=== PATIENT | female | born 1970 | race Caucasian/White ===

== ENCOUNTER 2017-09-16 11:38 | Emergency (ER) | payer OTHER, SELFPAY ==
[2017-09-16 11:40] VITALS: BP 131/71; PULSE 77; RESP 16; TEMP 36.7; O2SAT 98; BMI 40.3
--- NOTE | 2017-09-16 11:54 | XR_ITS ---
XR knee LT 3V Ordering Physician: Rm Galicia MD Patient Age: 47 years: Female HISTORY: ITS.REASON: fall Patient fell at work with on right with at head water underneath it. Pain all around the left knee TECHNIQUE: 3 views left knee COMPARISON :None available FINDINGS Left knee is intact with no fracture. Upper normal joint fluid. Mild degenerative changes at the left knee was borderline narrowing of the medial compartment and slight sharpening, early marginal osteophytes seen about the medial and lateral compartment. IMPRESSION: No acute fracture evident. Suggestion of trace Scant degenerative changes with borderline narrowing medial compartment. No prominent joint effusion but there is Upper normal to scant increased joint fluid suprapatella bursa.
--- NOTE | 2017-09-16 11:54 | CT_ITS ---
CT lumbar spine wo con Patient Age: 47 years: Female HISTORY: ITS.REASON: fall back pain trauma Fell on right with water under. Pain midline lower back TECHNIQUE: Helical CT scanning performed the lumbar spine with sagittal and coronal reconstructions on CT workstation. In addition of oblique axial images through the lower disc spaces performed on CT workstation a 76 CPT COMPARISON :Lumbar spine series 11/28/2016 FINDINGS images began at T11/12 and continuing inferiorly through the majority of sacrum.. Transverse processes intact. Pedicles intact. No acute fracture nor subluxation The lumbar vertebral bodies are intact with no compression fractures. . . L5 is a transitional vertebra with sacralization of L5 most extensive on right & with pseudoarthrosis formation with sacrum on right. Marked degenerative disc space narrowing at L5/S1 reflect the transitional character. No disc protrusion. Mild posterior element hypertrophy L5/S1 L4/5. Mild facet hypertrophy arthropathy. Disc intact with only mild narrowing at posterior L4/5 disc space- similar to previous plain films from 2016. L3/4. At disc well-maintained unremarkable. L2/3. Disc intact with only borderline narrowing height. A 1/2 disc intact T12/L1 disc intact T11/12 disc unremarkable. kidneys are included with no acute findings. I would note a small 2 mm nonobstructive calculus at the lower pole calyx right kidney.. Sacrum appears intact on these views SI joints unremarkable. Cholecystectomy noted. IMPRESSION: ------ 1 Lumbar spine intact with no acute fracture or findings. 2 Prominent sacralization of L5 to the right reflect this transitional in nature. . Mild disc space narrowing posteriorly & to the right at L4/5- unchanged since November 2016 plain films.. .Mild degenerative facet changes most evident at lower L-spine 3. small nonobstructive calculus lower pole calyx right kidney. 2 mm cyst incidentally noted
--- NOTE | 2017-09-16 12:13 | XR_ITS ---
XR pelvis 1-2V Ordering Physician: Rm Galicia MD Patient Age: 47 years: Female HISTORY: ITS.REASON: FALL TECHNIQUE: Osseous pelvis AP view. August 2016 AP pelvis comparison . FINDINGS The osseous pelvis is intact with no fracture. Bones well mineralized. Sacralization L5 to the right noted. AP view of hips unremarkable. No significant change since previous study. Pubis sacrum and SI joints unremarkable on this survey. Image IMPRESSION: Osseous pelvis intact.. No fracture nor acute findings.. No significant change since 2017
[2017-09-16 14:10] VITALS: BP 118/56; PULSE 66; O2SAT 98
--- NOTE | 2017-09-16 14:27 | HMH.EDFALL ---
ED Disposition Clinical Impression: Lumbar back sprain Qualifiers: Encounter type: initial encounter Qualified Code(s): S33.5XXA - Sprain of ligaments of lumbar spine, initial encounter Knee sprain Qualifiers: Encounter type: initial encounter Involved ligament of knee: unspecified ligament Laterality: left Qualified Code(s): S83.92XA - Sprain of unspecified site of left knee, initial encounter Disposition: Home, Self-Care Condition on Discharge: Good Instructions: DI for Low Back Pain Additional Instructions: call pcp and folllow up at this time Prescriptions: predniSONE [Prednisone 20mg Tab] 20 mg PO DAILY #10 tab Referrals: Umang Gamino MD [Primary Care Provider] - - Critical Care Critical Care Time: No Attestation: On 09/16/17, the high probability of a clinically significant, sudden or life threatening deterioration of the following system(s) required my full and direct attention, intervention and personal management. The time I documented below is in addition to time spent performing reported procedures but includes the following listed in this critical care notation. Medical Decision Making - Medical Records Medical records reviewed: Yes: I reviewed the patient's medical records. Vital Signs: 09/16/17 11:40 09/16/17 14:10 Temperature 98.1 F Temperature Source Oral Pulse Rate [Right Brachial] 77 66 Respiratory Rate 16 Blood Pressure [Right Arm] 131/71 118/56 Blood Pressure Mean [Right Arm] 91 76 Blood Pressure Source [Right Arm] Automatic Cuff Automatic Cuff Blood Pressure Position [Right Arm] Sitting Sitting 02 Sat by Pulse Oximetry 98 98 Oxygen Delivery Method Room Air - Lab Data Lab results reviewed: Yes: I reviewed the patient's lab results. Orders (Tests/Meds): ED MEDICATIONS Discontinued Medications Generic Name Dose Route Start Last Admin Trade Name Freq PRN Reason Stop Dose Admin Acetaminophen 650 mg 09/16/17 13:38 Acetaminophen 325mg Tab PO 09/16/17 13:39 ONCE ONE Ibuprofen 600 mg 09/16/17 13:55 09/16/17 13:57 Motrin 600mg Tablet PO 09/16/17 13:56 600 mg ONCE ONE Administration - Radiology Data #1 Image(s): Pelvis, Knee Image Reviewed: Yes I reviewed the patient's radiology image Preliminary Findings: No Fracture Seen - CT Data CT Scan: L-Spine Time Received: 14:[address] Reviewed: Yes: I have viewed the radiologist's interpretation Preliminary Findings: No Fracture Seen - Hardeep Inquiry Pt receiving controlled substance: No Fall HPI - General Chief Complaint: Fall Stated Complaint: WC 09/16/17 left knee/back pain Time Seen by Provider: 09/16/17 14:27 Mode of Arrival: Wheelchair Source of Information: Patient, Medical Record Limitations: No Limitations Description of Symptoms (Recalled from ER Triage Doc. 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 Pt c/o pain in her left knee and lower back. - History of Present Illness HPI Narrative: workman comp injury today as she slipped on rug - has back and knee injury MD complaint: fall Onset (ago): hour(s) Fall from: standing Fall witnessed: yes, by [facility] staff Place fall occurred: work Loss of consciousness: none Prolonged down time: no Symptoms prior to fall: none Context: tripped/slipped Location of injury: back Location of injury - extremities: Left: knee Severity: moderate - Related Data Previous Rx's Medication Instructions Recorded predniSONE [Prednisone 20mg 20 mg PO DAILY #10 tab 09/16/17 Tab] Allergies Allergy/AdvReac Type Severity Reaction Status Date / Time naproxen [NAPROXEN] Allergy Mild HEART Verified 09/16/17 11:53 BEATING TOO FAST [facility] History I have reviewed the patient's past medical history: Yes Medical History: Reports:: Cancer (cervical) Denies:: Diabetes Mellitus Type 1, Diabetes Mellitus Type 2, MRSA Laterality Cases: Left: Arthroscopy Shoulder Amputation:
--- NOTE | 2017-09-16 14:38 | ED_ITS ---
ED Disposition Clinical Impression: Lumbar back sprain Qualifiers: Encounter type: initial encounter Qualified Code(s): S33.5XXA - Sprain of ligaments of lumbar spine, initial encounter Knee sprain Qualifiers: Encounter type: initial encounter Involved ligament of knee: unspecified ligament Laterality: left Qualified Code(s): S83.92XA - Sprain of unspecified site of left knee, initial encounter Disposition: Home, Self-Care Condition on Discharge: Good Instructions: DI for Low Back Pain Additional Instructions: call pcp and folllow up at this time Prescriptions: predniSONE [Prednisone 20mg Tab] 20 mg PO DAILY #10 tab Referrals: Umang Gamino MD [Primary Care Provider] - - Critical Care Critical Care Time: No Attestation: On 09/16/17, the high probability of a clinically significant, sudden or life threatening deterioration of the following system(s) required my full and direct attention, intervention and personal management. The time I documented below is in addition to time spent performing reported procedures but includes the following listed in this critical care notation. Medical Decision Making - Medical Records Medical records reviewed: Yes: I reviewed the patient's medical records. Vital Signs: 09/16/17 11:40 09/16/17 14:10 Temperature 98.1 F Temperature Source Oral Pulse Rate [Right Brachial] 77 66 Respiratory Rate 16 Blood Pressure [Right Arm] 131/71 118/56 Blood Pressure Mean [Right Arm] 91 76 Blood Pressure Source [Right Arm] Automatic Cuff Automatic Cuff Blood Pressure Position [Right Arm] Sitting Sitting 02 Sat by Pulse Oximetry 98 98 Oxygen Delivery Method Room Air - Lab Data Lab results reviewed: Yes: I reviewed the patient's lab results. Orders (Tests/Meds): ED MEDICATIONS Discontinued Medications Generic Name Dose Route Start Last Admin Trade Name Freq PRN Reason Stop Dose Admin Acetaminophen 650 mg 09/16/17 13:38 Acetaminophen 325mg Tab PO 09/16/17 13:39 ONCE ONE Ibuprofen 600 mg 09/16/17 13:55 09/16/17 13:57 Motrin 600mg Tablet PO 09/16/17 13:56 600 mg ONCE ONE Administration - Radiology Data #1 Image(s): Pelvis, Knee Image Reviewed: Yes I reviewed the patient's radiology image Preliminary Findings: No Fracture Seen - CT Data CT Scan: L-Spine Time Received: 14:[address] Reviewed: Yes: I have viewed the radiologist's interpretation Preliminary Findings: No Fracture Seen - Hardeep Inquiry Pt receiving controlled substance: No Fall HPI - General Chief Complaint: Fall Stated Complaint: WC 09/16/17 left knee/back pain Time Seen by Provider: 09/16/17 14:27 Mode of Arrival: Wheelchair Source of Information: Patient, Medical Record Limitations: No Limitations Description of Symptoms (Recalled from ER Triage Doc. 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 Pt c/o pain in her left knee and lower back. - History of Present Illness HPI Narrative: workman comp injury today as she slipped on rug - has back and knee injury MD complaint: fall Onset (ago): hour(s) Fall from: standing Fall witnessed: yes, by [facility] staff Place fall occurred: work Loss of consciousness: none Prolonged down time: no Symptoms prior to fall: none Context: tripped/slipped Loca
[2017-09-16 15:03] VITALS: BP 140/70; PULSE 82; RESP 16; TEMP 37; O2SAT 98
== END 2017-09-16 15:04 | disposition home or self-care (01) ==
PROVIDERS: Emergency Provider Emergency Medicine; PCP Family Medicine
DX: S33.5XXA Sprain of ligaments of lumbar spine, initial encounter (principal); S83.92XA Sprain of unspecified site of left knee, initial encounter; W01.0XXA Fall on same level from slipping, tripping and stumbling without subsequent striking against object, initial encounter; Y92.69 Other specified industrial and construction area as the place of occurrence of the external cause; Y99.0 Civilian activity done for income or pay
CPT/HCPCS: 72131; 72170; 73562; 99282

== ENCOUNTER → 2017-09-27 13:28 | Outpatient (CLI) | payer OTHER, SELFPAY ==
--- NOTE | 2017-09-27 13:31 | XR_ITS ---
XR knee LT 4V HISTORY: ITS.REASON: LT knee pain ORDERING PHYSICIAN: Dharmesh Ryan MD PATIENT AGE: 47 years FINDINGS: Weightbearing views are performed No fracture or dislocation. No lytic or blastic change. Normal mineralization. Mild osteoarthritic changes are present involving the medial compartment with slight decrease in the joint space. There is mild lateral translation of the tibia. No other significant findings IMPRESSION: Mild osteoarthritis of the medial compartment unchanged from to 418
== END ==
PROVIDERS: PCP Family Medicine; Visit Provider Orthopaedic Surgery
DX: S83.92XA Sprain of unspecified site of left knee, initial encounter (principal)
CPT/HCPCS: 73564

== ENCOUNTER 2017-10-11 04:54 | Emergency (ER) | payer OTHER, SELFPAY ==
[2017-10-11 04:55] VITALS: BP 140/78; PULSE 97; RESP 14; TEMP 37.1; O2SAT 97; BMI 40.3
--- NOTE | 2017-10-11 05:10 | CT_ITS ---
CT abdomen pelvis wo con CLINICAL INDICATION: Generalized abdominal pain ITS.REASON: pain ORDERING PHYSICIAN: Rm Galicia MD PATIENT AGE: 47 years COMPARISON: 02/22/2016 TECHNIQUE: Axial images obtained with sagittal and coronal reformats. PROCEDURE: Oral Contrast: None IV Contrast: None . FINDINGS: The lung bases are clear of acute findings. The liver is unremarkable. There has been a prior cholecystectomy. No ductal dilatation. The spleen, adrenal glands, and pancreas have an unremarkable unenhanced CT appearance. There may be a small duodenal diverticulum projecting off the descending portion of the duodenum medially along small lymph nodes posterior to the head of the pancreas. There are nonobstructing right renal calculi measuring up to 3 mm in the lower pole on the right. Left kidney has an unremarkable appearance. Prior appendectomy by history. Fluid-filled large bowel is present throughout and may be related to diarrhea or low-grade colitis. No intestinal obstruction or free air. Prior hysterectomy. No acute bony anomalies IMPRESSION: 1. Fluid-filled colon throughout with a few scattered air-fluid levels. This may be seen with diarrhea disease or low-grade colitis. 2. Nonobstructing right nephrolithiasis
[2017-10-11 06:08] LABS: Adenovirus F 40/41, stool Not Detected (NotDetected); Astrovirus Not Detected (NotDetected); Campylobacter Not Detected (NotDetected); Clostridium Difficile A/B, PCR Not Detected (NotDetected); Cryptosporidium Not Detected (NotDetected); Cyclospora Cayetanesis Not Detected (NotDetected); Entamoeba histolytica Not Detected (NotDetected); Enteroaggregative E coli Not Detected (NotDetected); Enteropathogenic E coli Not Detected (NotDetected); Enterotoxigenic E coli Not Detected (NotDetected); Giardia lamblia Not Detected (NotDetected); Norovirus Not Detected (NotDetected); Plesimonas Shigalloides, PCR Not Detected (NotDetected); Rotavirus A Not Detected (NotDetected); Salmonella, PCR Not Detected (NotDetected); Sapovirus Not Detected (NotDetected); Shiga-like toxin E coli Not Detected (NotDetected); Shigella Enterovasive E coli Not Detected (NotDetected); Vibrio Cholerae Not Detected (NotDetected); Vibrio, PCR Not Detected (NotDetected); Yersinia Entercolitica, PCR Not Detected (NotDetected)
[2017-10-11 06:14] LABS: Basophils % 0.2 % (0.1-2.0); Eosinophils # 0.1 K/mm3 (0.0-0.4); Eosinophils % 1.6 % (0.1-12.0); Hemoglobin 15.3 g/dL (12.2-16.2); Lymphocytes # 1.1 K/mm3 (0.7-4.5); Lymphocytes % 19.6 K/mm3 (10-50); Mean Corpuscular HGB Conc 34.9 g/dL (31.8-35.4); Mean Corpuscular Hemoglobin 30.4 pg (27.0-31.2); Mean Corpuscular Volume 87.1 fl (81-99); Mean Platelet Volume 8.3 fl (7.4-10.4); Monocytes # 0.3 K/mm3 (0.1-1.0); Monocytes % 6.1 % (1.7-9.3); Neutrophils # 3.9 K/mm3 (1.8-7.8); Neutrophils % 72.5 % (37.0-80.0); Platelet Count 278 K/mm3 (142-424); Red Blood Count 5.05 M/mm3 (4.20-5.40); White Blood Count 5.4 K/mm3 (4.8-10.8)
[2017-10-11 06:22] LABS: Alanine Aminotransferase 15 U/L (12-78); Albumin Level 4.6 gm/dL (3.4-5.0); Albumin/Globulin Ratio 1.1 (1.1-1.8); Alkaline Phosphatase 108 U/L (46-116); Amylase 51 U/L (25-125); Anion Gap 16.3 mEq/L (5-15); Aspartate Amino Transferase 9 U/L (15-37); Bilirubin,Total 0.7 mg/dL (0.2-1.0); Blood Urea Nitrogen 13 mg/dL (7-18); Calcium 9.9 mg/dL (8.5-10.1); Carbon Dioxide 22 mmol/L (21.0-32.0); Chloride 104 mmol/L (98-107); Creatinine Clearance Estimated 108 mL/min (0-300); Creatinine,Serum 1.06 mg/dL (0.55-1.02); Estimated Glomerular Filt Rate 55 ml/min (>60); GFR (African American) 67 ML/MIN (>60); Globulin 4.2 gm/dl (1.3-3.2); Glucose 106 mg/dL (74-106); Lipase 161 u/L (73-393); Potassium 3.3 mmoL/L (3.5-5.1); Sodium 139 mmol/L (136-145); Total Protein,Serum 8.8 gm/dL (6.4-8.2)
[2017-10-11 06:25] VITALS: BP 135/52; PULSE 88; RESP 16; TEMP 36.7; O2SAT 94
--- NOTE | 2017-10-11 06:59 | HMH.EDNVD ---
ED Disposition Clinical Impression: Gastroenteritis Disposition: Home, Self-Care Condition on Discharge: Good Instructions: DI for Vomiting -- Adult Additional Instructions: see pcp for follow up Prescriptions: Ondansetron HCl [Zofran 4mg Tab] 4 mg PO TID #15 tab Referrals: Howard Mcgill MD [Primary Care Provider] - - Critical Care Critical Care Time: No Attestation: On 10/11/17, the high probability of a clinically significant, sudden or life threatening deterioration of the following system(s) required my full and direct attention, intervention and personal management. The time I documented below is in addition to time spent performing reported procedures but includes the following listed in this critical care notation. Medical Decision Making - Medical Records Medical records reviewed: Yes: I reviewed the patient's medical records. Vital Signs: 10/11/17 04:55 10/11/17 06:25 Temperature 98.7 F 98.1 F Temperature Source Oral Oral Pulse Rate [Left Radial] 97 H 88 Respiratory Rate 14 16 Blood Pressure [Right Arm] 140/78 135/52 Blood Pressure Mean [Right Arm] 98 79 Blood Pressure Source [Right Arm] Automatic Cuff Automatic Cuff Blood Pressure Position [Right Arm] Sitting Sitting 02 Sat by Pulse Oximetry 97 94 L Oxygen Delivery Method Room Air Room Air - Lab Data Lab results reviewed: Yes: I reviewed the patient's lab results. Lab Results 10/11/17 05:19: WBC 5.4, RBC 5.05, Hgb 15.3, Hct 44.0, MCV 87.1, MCH 30.4, MCHC 34.9, RDW 13.0, Plt Count 278, MPV 8.3, Neut % (Auto) 72.5, Lymph % (Auto) 19.6, [place] % (Auto) 6.1, Eos % (Auto) 1.6, Baso % (Auto) 0.2, Neut # (Auto) 3.9, Lymph # (Auto) 1.1, [place] # (Auto) 0.3, Eos # (Auto) 0.1, Baso # (Auto) 0.0 10/11/17 05:19: Sodium 139, Potassium 3.3 L, Chloride 104, Carbon Dioxide 22, Anion Gap 16.3 H, BUN 13, Creatinine 1.06 H, Estimated Creat Clear 108, Estimated GFR 55 L, Est GFR ( Amer) 67, Glucose 106, Calcium 9.9, Total Bilirubin 0.7, AST 9 L, ALT 15, Alkaline Phosphatase 108, Total Protein 8.8 H, Albumin 4.6, Globulin 4.2 H, Albumin/Globulin Ratio 1.1, Amylase 51, Lipase 161 10/11/17 05:35: Stl Aeromonas (PCR) Not detected, Stl C. cayetanensis PCR Not detected, Stool Rotavirus (PCR) Not detected, Stl Adenov F 40/41 PCR Not detected, Stool Astrovirus (PCR) Not detected, Stool Campylobacter PCR Not detected, Stl C.difficile Tox PCR Not detected, Stool Cryptosporidium PCR Not detected, Stl E.coli Shiga Tox PCR Not detected, Stool E coli O157 PCR Not detected, Stl Enterotoxigenic E PCR Not detected, Stool EPEC (PCR) Not detected, Stool EAEC (PCR) Not detected, Stl E. histolytica PCR Not detected, Stool Giardia Lamblia PCR Not detected, Stool Salmonella PCR Not detected, Stool Sapovirus (PCR) Not detected, Stl P. shigelloides PCR Not detected, Stl Shigella/EIEC PCR Not detected, St Y.enterocolitica PCR Not detected, Stool Vibrio (PCR) Not detected, Stl Vibrio cholerae PCR Not detected, Stl Norovirus GI/GII PCR Not detected Result diagrams: 10/11/17 05:19 10/11/17 05:19 Orders (Tests/Meds): ED MEDICATIONS Generic Name Dose Route Start Last Admin Trade Name Freq PRN Reason Stop Dose Admin Sodium Chloride 1,000 mls @ 999 mls/hr 10/11/17 07:15 10/11/17 07:07 Sod Chlor 0.9% 1000ml Bag IV 10/11/17 08:15 999 mls/hr .Q1H1M SHIRLEY Administration Discontinued Medications Generic Name Dose Route Start Last Admin Trade Name Freq PRN Reason Stop Dose Admin Sodium Chloride 1,000 mls @ 999 mls/hr 10/11/17 05:45 10/11/17 05:47 Sod Chlor 0.9% 1000ml Bag IV 10/11/17 06:45 999 mls/hr .Q1H1M SHIRLEY Administration Ondansetron HCl 4 mg 10/11/17 05:38 10/11/17 05:47 Zofran 4mg/2ml Vial IV 10/11/17 05:39 4 mg ONCE ONE Administration ORDERS Category Date Time Status CT abdomen pelvis wo con Stat Cat Scan 10/11/17 05:10 Taken - CT Data CT Scan: Abdomen, Pelvis Time Received: 07:[address] Reviewed: Yes: I have viewed th
--- NOTE | 2017-10-11 07:11 | ED_ITS ---
ED Disposition Clinical Impression: Gastroenteritis Disposition: Home, Self-Care Condition on Discharge: Good Instructions: DI for Vomiting -- Adult Additional Instructions: see pcp for follow up Prescriptions: Ondansetron HCl [Zofran 4mg Tab] 4 mg PO TID #15 tab Referrals: Howard Mcgill MD [Primary Care Provider] - - Critical Care Critical Care Time: No Attestation: On 10/11/17, the high probability of a clinically significant, sudden or life threatening deterioration of the following system(s) required my full and direct attention, intervention and personal management. The time I documented below is in addition to time spent performing reported procedures but includes the following listed in this critical care notation. Medical Decision Making - Medical Records Medical records reviewed: Yes: I reviewed the patient's medical records. Vital Signs: 10/11/17 04:55 10/11/17 06:25 Temperature 98.7 F 98.1 F Temperature Source Oral Oral Pulse Rate [Left Radial] 97 H 88 Respiratory Rate 14 16 Blood Pressure [Right Arm] 140/78 135/52 Blood Pressure Mean [Right Arm] 98 79 Blood Pressure Source [Right Arm] Automatic Cuff Automatic Cuff Blood Pressure Position [Right Arm] Sitting Sitting 02 Sat by Pulse Oximetry 97 94 L Oxygen Delivery Method Room Air Room Air - Lab Data Lab results reviewed: Yes: I reviewed the patient's lab results. Lab Results 10/11/17 05:19: WBC 5.4, RBC 5.05, Hgb 15.3, Hct 44.0, MCV 87.1, MCH 30.4, MCHC 34.9, RDW 13.0, Plt Count 278, MPV 8.3, Neut % (Auto) 72.5, Lymph % (Auto) 19.6 , [place] % (Auto) 6.1, Eos % (Auto) 1.6, Baso % (Auto) 0.2, Neut # (Auto) 3.9, Lymph # (Auto) 1.1, [place] # (Auto) 0.3, Eos # (Auto) 0.1, Baso # (Auto) 0.0 10/11/17 05:19: Sodium 139, Potassium 3.3 L, Chloride 104, Carbon Dioxide 22, Anion Gap 16.3 H, BUN 13, Creatinine 1.06 H, Estimated Creat Clear 108, Estimated GFR 55 L, Est GFR ( Amer) 67, Glucose 106, Calcium 9.9, Total Bilirubin 0.7, AST 9 L, ALT 15, Alkaline Phosphatase 108, Total Protein 8.8 H, Albumin 4.6, Globulin 4.2 H, Albumin/Globulin Ratio 1.1, Amylase 51, Lipase 161 10/11/17 05:35: Stl Aeromonas (PCR) Not detected, Stl C. cayetanensis PCR Not detected, Stool Rotavirus (PCR) Not detected, Stl Adenov F 40/41 PCR Not detected, Stool Astrovirus (PCR) Not detected, Stool Campylobacter PCR Not detected, Stl C.difficile Tox PCR Not detected, Stool Cryptosporidium PCR Not detected, Stl E.coli Shiga Tox PCR Not detected, Stool E coli O157 PCR Not detected, Stl Enterotoxigenic E PCR Not detected, Stool EPEC (PCR) Not detected , Stool EAEC (PCR) Not detected, Stl E. histolytica PCR Not detected, Stool Giardia Lamblia PCR Not detected, Stool Salmonella PCR Not detected, Stool Sapovirus (PCR) Not detected, Stl P. shigelloides PCR Not detected, Stl Shigella /EIEC PCR Not detected, St Y.enterocolitica PCR Not detected, Stool Vibrio (PCR ) Not detected, Stl Vibrio cholerae PCR Not detected, Stl Norovirus GI/GII PCR Not detected Result diagrams: 10/11/17 05:19 10/11/17 05:19 Orders (Tests/Meds): ED MEDICATIONS Generic Name Dose Route Start Last Admin Trade Name Freq PRN Reason Stop Dose Admin Sodium Chloride 1,000 mls @ 999 mls/hr 10/11/17 07:15 10/11/17 07:07 Sod Chlor 0.9% 1000ml Bag IV 10/11/17 08:15 999 mls/hr .Q1H1M SHIRLEY Administration Discontinued Medications Generic Name Dose Route Start Last Admin Trade Name Freq P
[2017-10-11 08:38] VITALS: BP 132/80; PULSE 80; RESP 18; TEMP 36.8
== END 2017-10-11 08:38 | disposition home or self-care (01) ==
PROVIDERS: Emergency Provider Emergency Medicine; PCP Family Medicine
DX: K52.9 Noninfective gastroenteritis and colitis, unspecified (principal)
CPT/HCPCS: 74176; 80053; 82150; 83690; 85025; 87507; 96365; 96366; 96374; 96375; 99283; J2405

== ENCOUNTER → 2017-11-12 13:35 | Outpatient (CLI) | payer OTHER, SELFPAY ==
--- NOTE | 2017-11-12 13:37 | MR_ITS ---
MR knee LT wo con Ordering Physician: Dharmesh Ryan MD Patient Age: 47 years: Female HISTORY: ITS.REASON: Possible meniscal tear Left knee. Fell at work and twisted left knee. Medial knee pain symptoms 2 months the longer on feet the more swelling. Unable to st step up with knee. TECHNIQUE: Multiplanar multisequence imaging performed on 1.5 T MR COMPARISON :Previous MR I from 05/30/2016 Also plain films left knee from 09/16/2017 FINDINGS MEDIAL MENISCUS/MEDIAL COMPARTMENT: On previous May 2016 study patient had evidence of a posterior meniscal tear but with findings here significantly improved since 2016. Today Posterior Horn demonstrates less extensive abnormal signal but still minimal abnormal signal at posterior horn medial meniscus. It is seen Extending towards the inferior surface sagittal image 10, & 11; with abnormal signal extending to the to the superior meniscal surface posterior horn on sagittal slice 9. This could reflects interval repaired meniscus if no surgery may reflect some partial healing at the prior meniscal tear.. No history of surgery given by technologist. There is also moderate intrameniscal signal Anterior horn medial meniscus with additional linear signal suggestive, & suspect of a minimal horizontal tear here extending to the anterior meniscal root.. The transverse ligament of Ayala can occur in this area and minimally such at the meniscal root.. Since 2016 there has Slight progression of the increased bone signal and reactive bone change again seen beneath blunted medial/ margin of the medial tibial plateau.. There may be a small osteochondral irregularity at the medial/anterior margin of the medial tibial plateau contributing to this increased reactive bone signal.. Degenerative changes & possible minor old osteochondral irregularity here; with mild diffuse chondral thinning at the medial compartment of most evident towards the medial margin medial tibial plateau. T his reflecting degenerative changes medial compartment as well. With this there is Medial extrusion of the body of medial meniscus. Mild marginal osteophyte formation tricompartmental LATERAL MENISCUS/LATERAL COMPARTMENT.: Cartilage at the lateral compartment is slightly better maintained.. No definitive tear at the lateral meniscus although there are some areas of slight varying signal reflecting some degenerative features. MCL and lateral collateral ligaments appear intact. PCL intact ACL is surprising difficult to delineate on sagittal images but I believe most likely intact based on the coronal STIR image where it is better visualized leading to its attachment at the anterior tibial spine.... It appears similar to previous 2016 study on coronal and axial view Patellofemoral joint. Slight lateral tilt of patella. Cartilage well-maintained throughout the lateral patellofemoral joint. The quadriceps tendon appears intact & stable. Patellar tendon with upper normal signal at its inferior patellar attachment Mild/moderate joint effusion again noted =====IMPRESSION===== 1. ABNORMAL MEDIAL MENISCUS.: Posterior horn tear: Signal changes of the posterior horn medial meniscus are less pronounced than 2016 and either interval surgical repair or interval partial healing of prior meniscal tear,. Although less pronounced there are still abnormal signal changes at posterior horn. Anterior horn: suspect minimal horizontal tear anterior horn. Also note Body of medial meniscus meniscus with slight medial extrusion due developing medial compartment degenerative change 2. Developing degenerative changes most notable at medial compartment. Mild chondral thinning and irregularity most evident at the medial margin the medial tibial plateau. Abnormal increased reactiv
== END ==
PROVIDERS: PCP Family Medicine; Visit Provider Orthopaedic Surgery
DX: S83.242A Other tear of medial meniscus, current injury, left knee, initial encounter (principal); M25.562 Pain in left knee
CPT/HCPCS: 73721

== ENCOUNTER → 2017-12-18 11:13 | Outpatient (CLI) | payer OTHER, SELFPAY ==
[2017-12-18 12:56] LABS: Alanine Aminotransferase 16 U/L (12-78); Albumin Level 4.2 gm/dL (3.4-5.0); Albumin/Globulin Ratio 1.3 (1.1-1.8); Alkaline Phosphatase 104 U/L (46-116); Anion Gap 15.8 mEq/L (5-15); Aspartate Amino Transferase 19 U/L (15-37); Bilirubin,Total 0.7 mg/dL (0.2-1.0); Blood Urea Nitrogen 21 mg/dL (7-18); Calcium 10.2 mg/dL (8.5-10.1); Carbon Dioxide 25 mmol/L (21.0-32.0); Chloride 108 mmol/L (98-107); Creatinine,Serum 1.11 mg/dL (0.55-1.02); Estimated Glomerular Filt Rate 52 ml/min (>60); GFR (African American) 63 ML/MIN (>60); Globulin 3.3 gm/dl (1.3-3.2); Glucose 90 mg/dL (74-106); Potassium 4.8 mmoL/L (3.5-5.1); Sodium 144 mmol/L (136-145); Total Protein,Serum 7.5 gm/dL (6.4-8.2)
== END ==
PROVIDERS: Visit Provider Specialist
DX: R93.0 Abnormal findings on diagnostic imaging of skull and head, not elsewhere classified (principal)
CPT/HCPCS: 36415; 80053

== ENCOUNTER → 2018-01-02 12:17 | Outpatient (CLI) | payer OTHER, SELFPAY ==
--- NOTE | 2018-01-02 12:28 | XR_ITS ---
XR chest 2V HISTORY: History of tobacco abuse, Prior smoker ITS.REASON: AGE RELATED PRE OP ORDERING PHYSICIAN: Jaya Ramirez MD PATIENT AGE: 47 years COMPARISON: 02/22/2016 FINDINGS: The cardiomediastinal silhouette and pulmonary vascularity are within normal limits. The lungs are clear without infiltrates, suspicious nodules, or pleural effusions. No acute bony abnormalities. IMPRESSION: Negative chest, no acute finding
[2018-01-02 12:30] LABS: Basophils % 0.8 % (0.1-2.0); Eosinophils % 1.1 % (0.1-12.0); Hematocrit 38.7 % (37.0-47.0); Lymphocytes # 0.8 K/mm3 (0.7-4.5); Lymphocytes % 23.7 K/mm3 (10-50); Mean Corpuscular HGB Conc 33.6 g/dL (31.8-35.4); Mean Corpuscular Hemoglobin 30.5 pg (27.0-31.2); Mean Corpuscular Volume 90.6 fl (81-99); Mean Platelet Volume 8.1 fl (7.4-10.4); Monocytes # 0.2 K/mm3 (0.1-1.0); Neutrophils # 2.2 K/mm3 (1.8-7.8); Neutrophils % 67.5 % (37.0-80.0); Platelet Count 196 K/mm3 (142-424); Red Blood Count 4.26 M/mm3 (4.20-5.40); Red Cell Distribution Width 13.2 % (11.5-17.5); White Blood Count 3.3 K/mm3 (4.8-10.8)
== END ==
PROVIDERS: PCP Family Medicine; Visit Provider Orthopaedic Surgery
DX: Z01.818 Encounter for other preprocedural examination (principal); S83.242A Other tear of medial meniscus, current injury, left knee, initial encounter; M17.12 Unilateral primary osteoarthritis, left knee
CPT/HCPCS: 36415; 71046; 85025; 93005

== ENCOUNTER → 2018-01-09 11:07 | Outpatient (CLI) | payer OTHER, SELFPAY ==
[2018-01-09 11:10] LABS: Microscopic, Urine URINE MICROSCOPIC (MICROSCOPIC)
[2018-01-09 11:20] LABS: Appearance,Urine CLEAR (Clear); Bilirubin,Urine Negative (Negative); Blood, Urine Negative (Negative); Color,Urine YELLOW (Yellow); Glucose,Urine (UA) Negative (Negative); Ketones,Urine Negative (Negative); Leukocyte Esterase,Urine TRACE (Negative); Nitrate,Urine Negative (Negative); PH,Urine 5.5 (5.0-8.5); Protein,Urine Negative (Negative); Specific Gravity, Urine >= 1.030 (1.005-1.030); Urobilinogen,Urine 0.2 EU/dl (0.2)
[2018-01-09 11:59] LABS: Bacteria,Urine 2+ /lpf; Mucus,Urine Trace /lpf
== END ==
PROVIDERS: Visit Provider Orthopaedic Surgery
DX: Z87.440 Personal history of urinary (tract) infections (principal)
CPT/HCPCS: 81001; 87086

== ENCOUNTER → 2018-03-04 08:21 | Outpatient (CLI) | payer OTHER, SELFPAY ==
--- NOTE | 2018-03-04 08:25 | MR_ITS ---
MR head/brain wo/w con Ordering Physician: Xenia Peck MD Patient Age: 47 years: Female HISTORY: ITS.REASON: ABNORMAL MRI OF HEAD HISTORY of migraines 6 month follow-up states meningioma TECHNIQUE: MR brain with without contrast : Precontrast Multiplanar FLAIR, T1, T2 weighted images along with axial diffusion/ADC imaging performed on 1.5 T. Siemens, MRI. Postcontrast imaging [id number] ProHance T1-weighted images axial & coronal plane performed COMPARISON :MRI brain 06/20/2017 by without contrast.. Also CT head without contrast 06/11/2017 FINDINGS Normal anatomy. Cranial cervical junction normal. Ventricles and basal cistern sella region unremarkable. No mass lesion no abnormal areas of enhancement. No extra-axial or subdural findings. There are a few scattered high signal foci at throughout white matter of cerebral hemispheres, Bilateral. These are seen on the FLAIR images. These tend to be more peripheral and subcortical than periventricular. .. These are most commonly, typically encountered in the setting of vascular disease as microangiopathic ischemic gliotic foci. Does the patient had vascular risk factors including history of migraines etc. However a 47-year-old a possibility demyelinating disease or other processes would be included in the differential considerations.. Scalp skull unremarkable. Orbits unremarkable. Paranasal sinuses are well-developed and clear. Mastoid air cells are well-developed and clear. The right and left IAC and cranial nerve VII and VIII overview on the standard study. Normal. Posterior fossa unremarkable. IMPRESSION . A few scattered high signal foci are seen scattered through the white matter of the cerebral hemispheres bilaterally. Most typically encountered as small vessel white matter ischemic gliotic features, particular the patient has vascular risk factors. However in a 47 year-old the possibility of demyelinating disease would be included in the differential Otherwise unremarkable MR brain. Normal anatomy. No mass lesion. No abnormal areas of enhancement.
== END ==
PROVIDERS: PCP Family Medicine; Visit Provider Specialist
DX: R93.0 Abnormal findings on diagnostic imaging of skull and head, not elsewhere classified (principal)
CPT/HCPCS: 70553; A9576

== ENCOUNTER → 2018-03-06 07:51 | Outpatient (CLI) | payer OTHER, SELFPAY ==
--- NOTE | 2018-03-06 07:54 | XR_ITS ---
XR knee LT 4V Ordering Physician: Jaya Ramirez MD Patient Age: 47 years: Female HISTORY: ITS.REASON: surgery 01/16/18; 4 view weighbearing! Medial knee pain now with interval procedure . Technique: Weightbearing AP, lateral and Noble views were performed as well as oblique. COMPARISON is made to 09/27/2017 left knee FINDINGS Sclerotic increased density is seen at the medial tibial plateau on reflecting the interval bone injection procedure. A tract of this radiopaque material extends anteriorly from the anterior margins of tibia, just inferior lateral to the patella. Procedure apparently has been performed and and strength to the medial tibial plateau. We again see the joint space narrowing medial joint space the degenerative arthritic changes here.. The lateral joint space well maintained. The sunrise view shows normal patellofemoral relationships. IMPRESSION: There apparently has been interval a injection of material in beneath the medial tibial plateau with increased density now seen here and material tracking anterior to this region. This is a change since previous September 2017 right knee exam
== END ==
PROVIDERS: PCP Family Medicine; Visit Provider Orthopaedic Surgery
DX: Z09 Encounter for follow-up examination after completed treatment for conditions other than malignant neoplasm (principal)
CPT/HCPCS: 73564

== ENCOUNTER 2018-03-21 10:30 | Outpatient (RCR) | payer OTHER, SELFPAY ==
--- NOTE | 2018-02-06 08:49 | HMH.PTOPEV ---
PT Outpatient Evaluation Rehab PT Outpatient Evaluation Start: 02/06/18 08:11 Freq: Status: Active Protocol: Document 02/06/18 08:12 KINA (Rec: 02/06/18 08:49 KINA [id number]) Electronically Signed By Elliot Jones, PT 02/06/18 08:12 Outpatient Therapy Subjective History Subjective History Pt presents s/p L knee sx.- medial (partial) mensicectomy, chondroplasty, subchondroplasy, medial plica resection on 01/16/18. Pt reports improved L knee s/s since sx., however, reports medial aspect L knee soreness, weakness, and some mild stiffness. Pt reports initial injury occurred d/t a fall on 09/16/17. Chief Complaint Pain Stiff Swelling Weakness Symptom Type Ache Sharp Dull Symptoms Relieved By Rest/Positioning Ice Symptoms Aggravated By Standing Walking Prior Functional Limitations Housework Standing Walking Stairs Current Functional Limitations Housework Standing Walking Stairs Symptom Description Constant but Variable Level of pain today (0-10) 2 Pain scale - at its best (0-10) 2 Pain scale - at its worst (0-10) 5 Hip/Knee Eval Gait Observation General Gait Pattern Observation Antalgic Gait Assistive Device Assistive Devices None / NA Palpation Tenderness left Knee Palpation Finding Tenderness Knee Palpation Overall Comment 3/4 medial HS AND ADD. MM INSERTION MMT right Hip Strength Reason Not Measured WFL Knee Strength Reason Not Measured WFL left Hip Flexion Strength Grade 4- Good- Hip Abduction Strength Grade 4- Good- Hip Adduction Strength Grade 3+ Fair+ Hip Extension Strength Grade 4- Good- Knee Extension Strength Grade 4 Good Knee Flexion Strength Grade 4- Good- ROM right Knee Flexion Active Range of Motion ( 0-135 degrees) left Knee Flexion Active Range of Motion ( 0-100 degrees) Effusion joint effusion knee exam standard left Mid - Patellar Ci
--- NOTE | 2018-03-06 08:37 | HMH.RHREAS ---
Rehab Reassessment Rehab OP Re-assessment Start: 03/06/18 08:31 Freq: Status: Active Protocol: Document 03/06/18 08:31 KINA (Rec: 03/06/18 08:36 KINA [id number]) Electronically Signed By Elliot Jones, PT 03/06/18 08:31 Rehab Re-assessment Subjective Subjective PT REPORTS 1-2/10 L KNEE PAIN ON VAS, AND FEELS 85-90% SINCE I EVAL Objective Objective Notes AROM L KNEE FLX 0-125 MMT L KNEE EXT 4/5, FLX 4/5, HIP FLX 4-4+/5, HIP ABD/EXT/ ADD 4/5 TTP L KNEE MEDIAL JT 2/4, LATERAL JT LINE 1/ Assessment Progress Assessment Progressing as Expected Assessment Notes PT W/IMPROVED L KNEE STRENGTH, ROM, AND TTP Patient goals met STG'S 02/16 LTG'S 11/19 Goals Not Met LTG'S 12/19 Plan Plan PT TO CONTINUE W/SKILLED P.T. TO MAKE FURTHER IMPROVEMENTS W / AROM, TTP, AND STRENGTH TO ALLOW FOR OPTIMAL FUNCTION Frequency of Therapy 1-2X/WK Duration of therapy 2-4WKS Time and Billing Re-Eval Time 15 Re-Eval Billing Units 1 PHYSICIAN CERTIFICATION: I certify the specified therapy services for Kathy Krishnan are required, authorized, and reviewed every 30 days.
== END 2018-03-21 10:31 | disposition home or self-care (01) ==
LOC: PT 10:30
PROVIDERS: PCP Family Medicine; Visit Provider Orthopaedic Surgery
DX: M25.562 Pain in left knee (principal); Z98.890 Other specified postprocedural states
CPT/HCPCS: 97010; 97014; 97016; 97033; 97035; 97110; 97163; 97164; 97760; G0283

== ENCOUNTER → 2018-11-07 14:00 | Outpatient (CLI) | payer OTHER, SELFPAY ==
--- NOTE | 2018-11-07 14:04 | XR_ITS ---
XR chest 2V HISTORY: ITS.REASON: SHORTNESS OF BREATH ORDERING PHYSICIAN: CHINTAN Mayorga PATIENT AGE: 48 years COMPARISON: 01/02/2018 FINDINGS: The cardiomediastinal silhouette and pulmonary vascularity are within normal limits. The lungs are clear without infiltrates, suspicious nodules, or pleural effusions. There is a faint rounded nodular opacity overlying the T11 vertebral body on the lateral view. This may be due to a summation artifact. Consider follow-up chest x-ray to confirm stability as a developing nodule is an additional consideration. No acute bony abnormalities. IMPRESSION: No acute finding. Possible summation artifact overlying T11 which may be confirmed with follow-up
== END ==
PROVIDERS: PCP Family Medicine; Visit Provider Physician Assistant
DX: R06.02 Shortness of breath (principal)
CPT/HCPCS: 71046

== ENCOUNTER → 2018-11-15 13:02 | Outpatient (CLI) | payer OTHER, SELFPAY ==
--- NOTE | 2018-11-15 13:07 | XR_ITS ---
XR chest 2V HISTORY: ITS.REASON: ABN CXR ORDERING PHYSICIAN: CHINTAN Mayorga PATIENT AGE: 48 years Technique: PA and lateral chest COMPARISON: PA and lateral chest 11/07/2018 also December 2017. FINDINGS: The lungs are well-expanded and clear with nothing definitely acute. No significant change since previous studies heart amy and mediastinal structures satisfactory. No focal pneumonia. No pleural effusions or pleural findings. Chest wall and T-spine intact Today's lateral view shows no discrete nodule or density as questioned previously. I believe are merely viewing vascular markings extending posteriorly overlapping the lower L-spine on today's image. . IMPRESSION: Nothing definitely acute. No active disease No areas of significant concern
== END ==
PROVIDERS: PCP Physician Assistant; Visit Provider Physician Assistant
DX: R93.89 Abnormal findings on diagnostic imaging of other specified body structures (principal)
CPT/HCPCS: 71046

== ENCOUNTER → 2019-08-20 14:19 | Outpatient (CLI) | payer OTHER, SELFPAY ==
--- NOTE | 2019-08-20 14:24 | XR_ITS ---
PROCEDURE: XR LUMBAR SPINE MIN 4V CLINICAL INDICATION: LOW BACK PAIN COMPARISON: LS5 LUMBAR SPINE 5 VIEWS from 11/28/2016 FINDINGS: Normal alignment. Degenerative disc disease is present at T12-L1 L1-L2 and L2-L3. Mild degenerative disc disease L5-S1. Incidental note is made of a 4 mm stone overlying the lower pole of the right kidney. No fracture or dislocation. No lytic or blastic change IMPRESSION: Degenerative changes. These findings have progressed compared to 11/28/2016 in the upper lumbar spine. Right nephrolithiasis Dictated by: Panda Boles MD 08/20/2019 18:00 Electronically signed by Panda Boles MD in [place] 08/20/2019 18:00
== END ==
PROVIDERS: PCP Family Medicine; Visit Provider Physician Assistant
DX: M54.41 Lumbago with sciatica, right side (principal)
CPT/HCPCS: 72110

== ENCOUNTER → 2019-08-26 14:54 | Outpatient (CLI) | payer OTHER, SELFPAY ==
--- NOTE | 2019-08-26 14:56 | MR_ITS ---
PROCEDURE: MR LUMBAR SPINE WO CON CLINICAL INDICATION: ACUTE MIDLINE LOW BACK PAIN Low back pain with bilateral leg pain with numbness and tingling COMPARISON: SPLUMBWO CT lumbar spine wo con from 09/16/2017 BRAINWW MR head/brain wo/w con from 03/04/2018 XR LUMBAR SPINE MIN 4V from 08/20/2019 TECHNIQUE: Standard multiplanar multiecho sequences are performed without contrast. 3-D MIP and myelographic images are also rendered and reviewed FINDINGS: There is normal alignment. The spinal cord ends at the L1-L2 level. L1-L2, L2-L3, and L3-L4 and L4-5 have an unremarkable appearance. L5-S1: Mild disc desiccation with slight decrease in the disc space suggesting mild degenerative disc disease. There is some mild facet hypertrophy with mild left-sided foraminal narrowing at L5-S1 IMPRESSION: 1. No canal stenosis or herniated disc. 2. Mild degenerative disc disease at L5-S1 with minimal left-sided foraminal narrowing Dictated by: Panda Boles MD 08/27/2019 16:11 Electronically signed by Panda Boles MD in [place] 08/27/2019 16:11
== END ==
PROVIDERS: PCP Family Medicine; Visit Provider Physician Assistant
DX: M54.41 Lumbago with sciatica, right side (principal)
CPT/HCPCS: 72148; 76376

== ENCOUNTER → 2019-09-06 12:52 | Outpatient (CLI) | payer OTHER, SELFPAY ==
[2019-09-06 14:40] LABS: Microscopic, Urine URINE MICROSCOPIC (MICROSCOPIC)
[2019-09-06 14:49] LABS: Appearance,Urine CLEAR (Clear); Blood, Urine Negative (Negative); Color,Urine YELLOW (Yellow); Glucose,Urine (UA) 1+ (Negative); Ketones,Urine TRACE (Negative); Leukocyte Esterase,Urine 2+ (Negative); Nitrate,Urine POSITIVE (Negative); Protein,Urine 2+ (Negative); Specific Gravity, Urine >= 1.030 (1.005-1.030); Urobilinogen,Urine >=8.0 EU/dl (0.2)
[2019-09-06 14:54] LABS: Bilirubin,Urine 2+ (Negative)
[2019-09-06 14:55] LABS: Amorphous Sediment,Urine 3+ /lpf; Bacteria,Urine 3+ /lpf; WBC,Urine 50-100 #/hpf (0-3)
== END ==
LOC: UTC 12:53 → UTC.OUT 09-08 08:14
PROVIDERS: PCP Family Medicine; Visit Provider Nurse Practitioner
DX: R30.9 Painful micturition, unspecified (principal)
CPT/HCPCS: 81001; 87086; 87088; 87186

== ENCOUNTER → 2019-09-11 07:08 | Outpatient (CLI) | payer OTHER, SELFPAY ==
[2019-09-11 09:46] LABS: Alanine Aminotransferase 13 U/L (12-78); Albumin Level 4.2 gm/dL (3.4-5.0); Albumin/Globulin Ratio 1.3 (1.1-1.8); Alkaline Phosphatase 94 U/L (46-116); Anion Gap 16.8 mEq/L (5-15); Aspartate Amino Transferase 16 U/L (15-37); Bilirubin,Total 0.8 mg/dL (0.2-1.0); Blood Urea Nitrogen 22 mg/dL (7-18); Calcium 9.4 mg/dL (8.5-10.1); Carbon Dioxide 23 mmol/L (21.0-32.0); Chloride 105 mmol/L (98-107); Creatinine,Serum 1.35 mg/dL (0.55-1.02); Estimated Glomerular Filt Rate 41 ml/min (>60); GFR (African American) 50 ML/MIN (>60); Globulin 3.3 gm/dl (1.3-3.2); Glucose 90 mg/dL (74-106); Potassium 4.8 mmoL/L (3.5-5.1); Sodium 140 mmol/L (136-145); Total Protein,Serum 7.5 gm/dL (6.4-8.2)
== END ==
PROVIDERS: Visit Provider Physician Assistant
DX: R81 Glycosuria (principal)
CPT/HCPCS: 36415; 80053

== ENCOUNTER → 2019-09-16 13:55 | Outpatient (CLI) | payer OTHER, SELFPAY ==
--- NOTE | 2019-09-16 13:55 | MR_ITS ---
PROCEDURE: MR HEAD/BRAIN WO/W CON CLINICAL INDICATION: abnormal prior imaging Headache, follow-up abnormal CT and abnormal MRI of 03/04/2018. COMPARISON: BRAINWW MR head/brain wo/w con from 03/04/2018 TECHNIQUE: Routine multiplanar multi echo sequences are performed without and with gadolinium enhancement. FINDINGS: No midline shift, mass effect, intracranial hemorrhage, or hydrocephalus is evident. There are few scattered periventricular and subcortical T2 white matter hyperintensities once again noted which do not appear significantly changed. The cerebellopontine angle, cerebellum, and brainstem are unremarkable. No enhancing lesions are evident. No evidence of acute infarction. There is some increased diffusion signal in the central aspect of the jesusita which is nonspecific and not significantly changed. No mastoid effusion or sinus air-fluid level. The pituitary, optic chiasm, corpus callosum, and craniocervical junction have an unremarkable appearance. IMPRESSION: 1. No interval change with no acute finding. 2. Scattered small T2 white matter hyperintensities which are not significantly changed and may reflect minimal ischemic gliotic change from microvascular disease Dictated by: Panda Boles MD 09/17/2019 14:59 Electronically signed by Panda Boles MD in [place] 09/17/2019 14:59
== END ==
PROVIDERS: PCP Family Medicine; Visit Provider Specialist
DX: R51 Headache (principal); R90.89 Other abnormal findings on diagnostic imaging of central nervous system
CPT/HCPCS: 70553; A9576

== ENCOUNTER 2019-10-08 14:00 | Outpatient (RCR) | payer OTHER, SELFPAY ==
--- NOTE | 2019-09-01 15:38 | HMH.PTOPEV ---
PT Outpatient Evaluation Rehab PT Outpatient Evaluation Start: 09/01/19 14:43 Freq: Status: Active Protocol: Document 09/01/19 15:04 KINA (Rec: 09/01/19 15:38 KINA [id number]) Electronically Signed By Elliot Jones, PT 09/01/19 15:04 Outpatient Therapy Subjective History Subjective History Pt reports h/o chronic LBP with recent exacerbation over the last ~2 weeks. Pt reports LBP globally across paraspinals with intermittent N&T into B LE's to knee level. Recent MRI and Xrays of lumbar spine have revealed some mild degenerative changes . Chief Complaint Pain,Paresthesia,Weakness Symptom Type Ache,Sharp,Dull Symptoms Relieved By Rest/Positioning,Heat Symptoms Aggravated By Physical Activity,Twisting, Lifting Prior Functional Limitations Lifting,Standing Current Functional Limitations Lifting,Standing,Bending/ Stooping Symptom Description Constant but Variable Level of pain today (0-10) 2 Pain scale - at its best (0-10) 1 Pain scale - at its worst (0-10) 5 Lumbopelvic Eval Posture Thoracic Spine Posture Standing Position Neutral Lumbar Spine Posture Standing Position Neutral Assistive device Assistive Devices None / NA Gait Observation General Gait Pattern Observation Antalgic Gait Palapation tenderness bilateral lumbar spinal tenderness Yes: 3/4 paraspinal tenderness Yes: 3/4 Lumbar/Sacral Palpation Findings Tenderness Accessory Movement L-spine Vertebrae Accessory Movements Central P/A Delmita that Elicit Symptoms L4 bilateral L5 bilateral Range of Motion Lumbar Spine Active Flexion Range of 0-40 Motion (degrees) Lumbar Spine Active Extension Range of 0-5 Motion (degrees) Left Lumbar Spine Lateral Flexion Active 0-15 Range of Motion (degrees) Right Lumbar Spine Lateral Flexion 0-25 Active Range of Motion (degrees) Lumbar Spine ROM Limitations Pain Manual Muscle Test Bilateral Knee Extension Strength Grade 4 Good Knee Flexion Strength Grade 4 Good Hip Flexion Strength Grade 4- Good- Hip Abduction Strength Grade 4- Good- Extensor Hallucis Longus Strength Grade 5 Normal Ankle Dorsiflexion Strength Grade 5 Normal Gastronemius/Soleus Strength Grade 5 Normal DTR Rt Patellar 1+ Lt Patellar 1+ Rt Gastroc/Soleus 1+ Lt Gastroc/Soleus
== END 2019-10-08 14:05 | disposition home or self-care (01) ==
LOC: PT 14:00
PROVIDERS: PCP Family Medicine; Visit Provider Physician Assistant
DX: M54.41 Lumbago with sciatica, right side (principal)
CPT/HCPCS: 97010; 97014; 97035; 97110; 97163; G0283

== ENCOUNTER → 2020-01-26 13:57 | Outpatient (CLI) | payer OTHER, SELFPAY ==
--- NOTE | 2020-01-26 14:30 | ECG_ITS ---
APPROVED REPORT Exam: Resting ECG HR:72 bpm ECG Measurements Heart Rate 72 AXES UT 176 P 33 QRSd 80 QRS 31 QT 372 T 53 QTc 407 <Conclusion> Normal sinus rhythm ST & T wave abnormality, consider anterior ischemia Abnormal ECG Electronically signed by : Bubba Hendricks, 01/28/2020 17:09:55
[2020-01-26 15:09] LABS: Basophils % 0.6 % (0.1-2.0); Eosinophils # 0.1 K/mm3 (0.0-0.4); Eosinophils % 1.2 % (0.1-12.0); Hematocrit 39.2 % (37.0-47.0); Hemoglobin 13.8 g/dL (12.2-16.2); Lymphocytes # 1.1 K/mm3 (0.7-4.5); Lymphocytes % 22.7 % (10-50); Mean Corpuscular HGB Conc 35.2 g/dL (31.8-35.4); Mean Corpuscular Hemoglobin 31.2 pg (27.0-31.2); Mean Corpuscular Volume 88.6 fl (81-99); Mean Platelet Volume 8.1 fl (7.4-10.4); Monocytes # 0.4 K/mm3 (0.1-1.0); Monocytes % 7.4 % (1.7-9.3); Neutrophils # 3.2 K/mm3 (1.8-7.8); Neutrophils % 67.9 % (37.0-80.0); Platelet Count 221 K/mm3 (142-424); Red Blood Count 4.42 M/mm3 (4.20-5.40); Red Cell Distribution Width 13.5 % (11.5-17.5); White Blood Count 4.7 K/mm3 (4.8-10.8)
[2020-01-26 16:31] LABS: Alanine Aminotransferase 9 U/L (12-78); Albumin Level 4.7 g/dl (3.5-5.0); Albumin/Globulin Ratio 1.6 (1.1-1.8); Alkaline Phosphatase 99 U/L (38-126); Anion Gap 15.5 mEq/L (5-15); Aspartate Amino Transferase 30 U/L (14-36); Bilirubin,Total 0.4 mg/dl (0.2-1.3); Blood Urea Nitrogen 20 mg/dl (7-17); Calcium 10.1 mg/dl (8.4-10.2); Carbon Dioxide 25 mmol/L (22.0-30.0); Chloride 104 mmol/L (98-107); Creatine Kinase 71 U/L (30-135); Estimated Glomerular Filt Rate 43 ml/min (>60); GFR (African American) 52 ML/MIN (>60); Globulin 2.9 g/dL (1.3-3.2); Glucose 96 mg/dl (74-100); Potassium 4.5 mmoL/L (3.5-5.1); Sodium 140 mmol/L (136-145); Total Protein,Serum 7.6 g/dl (6.3-8.2)
[2020-01-26 16:32] LABS: Erythrocyte Sedimentation Rate 20 mm/hr (0-30)
[2020-01-26 17:02] LABS: NT Pro Brain Natriuretic Pep. 30.2 pg/mL (0-125)
[2020-01-26 17:04] LABS: 25-OH Vitamin D, Total 59.7 ng/mL (30-100); CKMB Relative Index 0.3 U/L (0-4.0); Creatine Kinase MB < 0.2 ng/ml (0.0-2.03); Troponin I < 0.01 ng/ml (0.00-0.034)
[2020-01-26 17:08] LABS: Free T4 (Free Thyroxine) 1.14 ng/dl (0.78-2.19)
[2020-01-26 17:20] LABS: Thyroid Stimulating Hormone 0.29 uIU/mL (0.465-4.68)
== END ==
PROVIDERS: Visit Provider Family Medicine
DX: R07.9 Chest pain, unspecified (principal); R06.02 Shortness of breath; E03.9 Hypothyroidism, unspecified; E55.9 Vitamin D deficiency, unspecified; N28.9 Disorder of kidney and ureter, unspecified; R53.83 Other fatigue
CPT/HCPCS: 36415; 80053; 82306; 82550; 82553; 83880; 84439; 84443; 84484; 85025; 85651; 93005

== ENCOUNTER → 2020-03-17 10:45 | Outpatient (CLI) | payer OTHER, SELFPAY ==
--- NOTE | 2020-03-17 11:55 | XR_ITS ---
PROCEDURE: XR CHEST AP CLINICAL HISTORY: COVID TESTING Shortness of breath, cough, congestion COMPARISON: CT CTAC CTA-CHEST from 02/22/2016 DX CXR2V XR chest 2V from 01/02/2018 DX CXR2V XR chest 2V from 11/07/2018 CR CXR2V XR chest 2V from 11/15/2018 FINDINGS: The cardiomediastinal silhouette and pulmonary vascularity are within normal limits. The lungs are clear without infiltrates, suspicious nodules, or pleural effusions. There is an old left 4th rib fracture laterally. IMPRESSION: No acute findings. Dictated b Panda Boles MD 03/17/2020 13:27 Panda Boles MD in [place] 03/17/2020 13:27
[2020-03-17 14:25] LABS: Basophils % 0.7 % (0.1-2.0); Eosinophils # 0.1 K/mm3 (0.0-0.4); Eosinophils % 1.9 % (0.1-12.0); Hematocrit 41.2 % (37.0-47.0); Lymphocytes # 1.2 K/mm3 (0.7-4.5); Lymphocytes % 22.7 % (10-50); Mean Corpuscular Volume 91.4 fl (81-99); Mean Platelet Volume 8.3 fl (7.4-10.4); Monocytes # 0.2 K/mm3 (0.1-1.0); Monocytes % 4.8 % (1.7-9.3); Neutrophils # 3.5 K/mm3 (1.8-7.8); Platelet Count 238 K/mm3 (142-424); Red Blood Count 4.51 M/mm3 (4.20-5.40); Red Cell Distribution Width 13.3 % (11.5-17.5); White Blood Count 5.1 K/mm3 (4.8-10.8)
== END ==
PROVIDERS: PCP Family Medicine; Visit Provider Nurse Practitioner Family
DX: Z03.818 Encounter for observation for suspected exposure to other biological agents ruled out (principal)
CPT/HCPCS: 71045; 85025; U0003

== ENCOUNTER → 2020-04-13 14:11 | Outpatient (CLI) | payer OTHER, SELFPAY ==
--- NOTE | 2020-04-13 14:17 | XR_ITS ---
PROCEDURE: XR SHOULDER RT MIN 2V CLINICAL INDICATION: PAIN IN R SHOULDER COMPARISON: CR XR CHEST AP from 03/17/2020 FINDINGS: No fracture or dislocation. No lytic or blastic change. There is normal mineralization. There is mild subacromial stenosis. Glenohumeral joint has an unremarkable appearance. There are areas of cortical discontinuity along the 4th 5th and 6th ribs suggesting rib fractures nondisplaced age indeterminate. IMPRESSION: No acute finding of the shoulder. Subacromial stenosis. Age indeterminate nondisplaced fractures of the right 4th 5th and 6th ribs Dictated by: Panda Boles MD 04/13/2020 15:06 Panda Boles MD in [place] 04/13/2020 15:06
== END ==
PROVIDERS: PCP Family Medicine; Visit Provider Family Medicine
DX: M25.511 Pain in right shoulder (principal)
CPT/HCPCS: 73030

== ENCOUNTER → 2020-05-07 07:39 | Outpatient (CLI) | payer OTHER, SELFPAY ==
--- NOTE | 2020-05-07 07:44 | MR_ITS ---
PROCEDURE: MR SHOULDER RT WO CON CLINICAL INDICATION: ACUTE PAIN OF RIGHT SHOULDER FALL IN BATHROOM AT WORK 04-12-20, RIGHT SHOULDER PAIN, TENDERNESS SUPERIORLY, LIMITED RANGE OF MOTION. COMPARISON: CR XR SHOULDER RT MIN 2V from 04/13/2020 TECHNIQUE: Routine multiplanar multi echo sequences are performed without gadolinium enhancement. FINDINGS: There are mild hypertrophic changes of the acromioclavicular joint. No significant subacromial stenosis evident. The infraspinatus and supraspinatus tendons have an unremarkable appearance as does the subscapularis and teres minor tendon. No obvious labral tear. The bicipital tendon is in place. There is a small area of increased T2 signal involving the humeral head at the base of the greater tuberosity anteriorly consistent with developing sub chondral cystic changes. No significant effusion. There is some mild edema and increased T2 signal of the infraspinatus tendon suggesting mild tendinopathy/tendinosis. IMPRESSION: 1. No evidence of rotator cuff tear. 2. Mild tendinopathy/tendinosis of the infraspinatus tendon. 3. Mild acromioclavicular hypertrophy. 4. Mild degenerative changes of the humeral head with early developing subchondral cystic changes Dictated by: Panda Boles MD 05/09/2020 12:17 Panda Boles MD in [place] 05/09/2020 12:17
== END ==
PROVIDERS: PCP Family Medicine; Visit Provider Family Medicine
DX: M25.511 Pain in right shoulder (principal)
CPT/HCPCS: 73221

== ENCOUNTER 2020-07-13 13:30 | Outpatient (RCR) | payer OTHER, SELFPAY ==
--- NOTE | 2020-05-10 15:26 | HMH.OTOPEV ---
OT Inpatient Evaluation Rehab OT Outpatient Eval Start: 05/10/20 15:17 Freq: Status: Active Protocol: Document 05/10/20 15:17 RMANA MARIA (Rec: 05/10/20 15:26 [facility] [id number][facility] Electronically Signed By Gomez Cee OT 05/10/20 15:17 Outpatient Therapy Subjective History Subjective History Pt is a 50 year old female who reports to therapy for initial evaluation to right shoulder. Pt fell in the bathroom at work due wet floors on April 12, 2020. When patient fell she hit her right shoulder and head again the wall and then again on the floor. Since the initial injury patient has continued to have pain, decreased AROM, and decreased strength. Pt has had an MRI on R shoulder with no significant findings. Pt will continue to be seen twice a week in order to address right shoulder deficits. Chief Complaint Pain,Weakness Symptom Type Ache,Throb,Dull,Numbness Symptoms Relieved By Rest/Positioning Symptoms Aggravated By Physical Activity,Lifting Prior Functional Limitations None Current Functional Limitations Reaching,Lifting,Housework, Dressing,Sleeping,Recreation Activity Symptom Description Constant but Variable Level of pain today (0-10) 2 Pain scale - at its best (0-10) 1 Pain scale - at its worst (0-10) 7 Shoulder/Elbow Eval Shoulder Objective Measurements Shoulder ROM Right Shoulder ROM Limitations Pain Shoulder Abduction Active Range of 85 degrees Motion (degrees) Shoulder Flexion Active Range of Motion 105 degrees (degrees) Query Text: Shoulder External Rotation Active Range 30 degrees of Motion (degrees) Shoulder Internal Rotation Active Range 55 degrees of Motion (degrees) pain with active ROM shoulder exam right standard pain with passive ROM shoulder exam right standard decreased ROM shoulder exam standard right Shoulder MMT Shoulder Abduction Strength Grade 3+ Fair+ Shoulder Extension Strength Grade 3+ Fair+ Shoulder Flexion Strength Grade 3+ Fair+ Shoulder External Rotation Strength 3 Fair Grade Shoulder Internal Rotation Strength
--- NOTE | 2020-06-09 14:33 | HMH.RHREAS ---
Rehab Reassessment Rehab OP Re-assessment Start: 06/09/20 14:03 Freq: Status: Active Protocol: Document 06/09/20 14:03 SHYLA (Rec: 06/09/20 14:33 SHYLA [id number]) Electronically Signed By Gomez Cee OT 06/09/20 14:03 Rehab Re-assessment Subjective Subjective I can move it better. Objective Objective Notes Pt continues to be seen weekly to address R shoulder deficits. Each session, pt engages in AROM/AAROM/ Strengthening exercises to right shoulder. Pt also receives IF e-garcía to right shoulder in order to decrease pain/inflammation. Assessment Progress Assessment Progressing as Expected Assessment Notes Pt does reports she feels the shoulder has improved since beginning therapy. Pt has missed some therapy appointments recently due to her mother being in the hospital and her having to be there with her. However, pt reports she is consistent with completing home exercise program. After reassessment, pt's AROM and strength has improved: Current R shoulder AROM and MMT Flex: 135; 4 Abd: 135; 4- ER: 75; 4 IR: 55; 4- Pt feels her pain at worst is now a 4/10 (improvement). Patient goals met Pt has met all short term goals written on initial evaluation. Goals Not Met LTG Revised Goals Continue progressing towards rn long term care goals written on initial evaluation. Plan Plan Continue with OT plan of care Frequency of Therapy 2x's a week Duration of therapy 4 more weeks Time and Billing Re-Eval Time 10 Re-Eval Billing Units 1 PHYSICIAN CERTIFICATION: I certify the specified therapy services for Kathy Krishnan are required, authorized, and reviewed every 30 days.
== END 2020-07-13 14:30 | disposition home or self-care (01) ==
LOC: OT 13:30
PROVIDERS: Visit Provider Family Medicine
DX: M25.511 Pain in right shoulder (principal)
CPT/HCPCS: 97014; 97110; 97164; 97165; G0283

== ENCOUNTER → 2020-07-26 10:24 | Outpatient (CLI) | payer OTHER, SELFPAY ==
--- NOTE | 2020-07-26 10:27 | XR_ITS ---
PROCEDURE: XR FOOT WT BEARING LT 3V CLINICAL INDICATION: Left Foot pain COMPARISON: No exams were available for comparison FINDINGS: No fracture or dislocation. No lytic or blastic change. There is normal mineralization. The joint spaces are well-preserved. No significant degenerative/arthritic changes. No erosive changes evident. Other findings:There is mild pes planus IMPRESSION: Mild pes planus otherwise negative Dictated by: Panda Boles MD 07/26/2020 16:26 Panda Boles MD in [place] 07/26/2020 16:26
--- NOTE | 2020-07-26 10:27 | XR_ITS ---
PROCEDURE: XR ANKLE WT BEARING LT MIN 3V CLINICAL INDICATION: Left foot pain Ankle pain COMPARISON: No exams were available for comparison FINDINGS: No fracture or dislocation. No lytic or blastic change. There is normal mineralization. The joint spaces are well-preserved. No significant degenerative/arthritic changes. No erosive changes evident. Other findings:None. IMPRESSION: No acute findings. Dictated by: Panda Bolse MD 07/26/2020 16:27 Panda Boles MD in [place] 07/26/2020 16:27
== END ==
PROVIDERS: PCP Family Medicine; Visit Provider Nurse Practitioner
DX: M79.672 Pain in left foot (principal); M25.572 Pain in left ankle and joints of left foot
CPT/HCPCS: 73610; 73630

== ENCOUNTER → 2020-08-10 13:25 | Outpatient (CLI) | payer OTHER, SELFPAY ==
--- NOTE | 2020-08-10 13:25 | MR_ITS ---
PROCEDURE: MR FOOT LT WO/W CON CLINICAL INDICATION: foot pain Lateral foot, soft tissue mass laterally. COMPARISON: CR XR FOOT WT BEARING LT 3V from 07/26/2020 TECHNIQUE: Routine multiplanar multi echo sequences are performed without and with gadolinium enhancement. FINDINGS: A marker is placed along the lateral aspect of the foot in the area of palpable concern. Stir images show no evidence of bone marrow edema or fracture. There is a prominent area of adipose tissue at the area the placed marker and superior to the placed marker suggesting lipomatous involvement. No soft tissue mass apparent. No abnormal enhancement. There is mild pes planus. No obvious ligamentous or tendon abnormality. No abnormal fluid collections. There is a small amount of fluid within the ankle joint. The tibiofibular ligaments ATFL, PT FL, and deltoid ligaments appear intact. The posterior tibialis, flexor hallucis longus, flexor digitorum longus, and peroneal tendons appear intact as do the anterior extensor tendons. There is a small amount of soft tissue edema along the anterior aspect of the talus and navicular region. This is deep to the extensor tendons. Small amount of fluid is present in the ankle joint. The talar dome and tibial plafond have an unremarkable appearance. Achilles tendon is unremarkable. IMPRESSION: 1. Palpable abnormality corresponds to a prominent area of fatty tissue with even more prominent fatty tissue just superior to the placed marker. This is consistent with lipomatous involvement. 2. There is a small ankle joint effusion with some soft tissue edema along the anterior aspect of the foot. 3. No suspicious soft tissue mass. 4. No ligamentous or tendinous abnormalities. Dictated by: Panda Boles MD 08/16/2020 11:04 Panda Boles MD in [place] 08/16/2020 11:04
== END ==
PROVIDERS: PCP Family Medicine; Visit Provider Nurse Practitioner
DX: M79.89 Other specified soft tissue disorders (principal); M79.672 Pain in left foot
CPT/HCPCS: 73720; A9576

== ENCOUNTER → 2020-08-25 13:54 | Outpatient (CLI) | payer OTHER, SELFPAY ==
[2020-08-25 14:20] LABS: Eosinophils # 0.1 K/mm3 (0.0-0.4); Eosinophils % 1.4 % (0.1-12.0); Hematocrit 40.2 % (37.0-47.0); Hemoglobin 13.4 g/dL (12.2-16.2); Lymphocytes # 1.2 K/mm3 (0.7-4.5); Lymphocytes % 28.8 % (10-50); Mean Corpuscular HGB Conc 33.2 g/dL (31.8-35.4); Mean Corpuscular Hemoglobin 30.8 pg (27.0-31.2); Mean Corpuscular Volume 92.8 fl (81-99); Mean Platelet Volume 8.2 fl (7.4-10.4); Monocytes # 0.3 K/mm3 (0.1-1.0); Monocytes % 6.7 % (1.7-9.3); Neutrophils # 2.6 K/mm3 (1.8-7.8); Neutrophils % 62.2 % (37.0-80.0); Platelet Count 199 K/mm3 (142-424); Red Blood Count 4.33 M/mm3 (4.20-5.40); Red Cell Distribution Width 13.6 % (11.5-17.5); White Blood Count 4.1 K/mm3 (4.8-10.8)
--- NOTE | 2020-08-25 14:26 | ECG_ITS ---
APPROVED REPORT Exam: Resting ECG HR:66 bpm ECG Measurements Heart Rate 66 AXES OR 162 P 34 QRSd 76 QRS 22 QT 390 T 64 QTc 408 Conclusion Normal sinus rhythm Old anterior changes Abnormal ECG Electronically signed by : Bubba Hendricks, 08/25/2020 21:03:12
--- NOTE | 2020-08-25 14:33 | XR_ITS ---
PROCEDURE: XR CHEST 2V CLINICAL HISTORY: SOB ON EXERTION COMPARISON: CT CTAC CTA-CHEST from 02/22/2016 DX CXR2V XR chest 2V from 11/07/2018 CR CXR2V XR chest 2V from 11/15/2018 CR XR CHEST AP from 03/17/2020 FINDINGS: The cardiomediastinal silhouette and pulmonary vascularity are within normal limits. The lungs are clear without infiltrates, suspicious nodules, or pleural effusions. No acute bony abnormalities. IMPRESSION: No acute findings. Dictated by: Panda Boles MD 08/25/2020 16:06 Panda Boles MD in [place] 08/25/2020 16:06
[2020-08-25 15:33] LABS: Alanine Aminotransferase 12 U/L (12-78); Albumin Level 4.6 g/dl (3.5-5.0); Albumin/Globulin Ratio 1.6 (1.1-1.8); Alkaline Phosphatase 108 U/L (38-126); Aspartate Amino Transferase 27 U/L (14-36); Bilirubin,Total 0.7 mg/dl (0.2-1.3); Blood Urea Nitrogen 20 mg/dl (7-17); Calcium 9.8 mg/dl (8.4-10.2); Carbon Dioxide 27 mmol/L (22.0-30.0); Chloride 105 mmol/L (98-107); Estimated Glomerular Filt Rate 39 ml/min (>60); GFR (African American) 48 ML/MIN (>60); Globulin 2.9 g/dL (1.3-3.2); Glucose 105 mg/dl (74-100); Sodium 141 mmol/L (136-145); Total Protein,Serum 7.5 g/dl (6.3-8.2)
== END ==
PROVIDERS: Visit Provider Podiatrist
DX: Z01.812 Encounter for preprocedural laboratory examination (principal); M79.89 Other specified soft tissue disorders; D17.79 Benign lipomatous neoplasm of other sites
CPT/HCPCS: 36415; 71046; 80053; 85025; 93005

== ENCOUNTER → 2020-09-08 13:55 | Outpatient (CLI) | payer OTHER, SELFPAY ==
[2020-09-08 17:50] LABS: Coronavirus 19 IgG Antibody Positive (Negative); Coronavirus 19 IgM Antibody Negative (Negative)
== END ==
PROVIDERS: Visit Provider Podiatrist
DX: Z01.812 Encounter for preprocedural laboratory examination (principal); Z20.822 Contact with and (suspected) exposure to COVID-19; Z86.16 Personal history of COVID-19; D17.79 Benign lipomatous neoplasm of other sites; M79.672 Pain in left foot; R22.42 Localized swelling, mass and lump, left lower limb
CPT/HCPCS: 36415; 86328

== ENCOUNTER 2020-09-10 06:08 | Day surgery (SDC) | payer OTHER, SELFPAY ==
[2020-09-08 11:21] VITALS: BMI 42.0
[2020-09-10] VITALS (11 sets, daily range): BP systolic 114–150; BP diastolic 57–87; PULSE 69–79; RESP 16–18; TEMP 36.1–43; O2SAT 93–99
--- NOTE | 2020-09-10 08:22 | P.PN_ITS ---
[facility] Anesthesia Checklist - Patient Identification Patient Identification: Arm Band, Verbal (Name & ) - Structural Data Admitted From: Home Planned Operative Procedure/s: ex. soft tissue mass left foot Consent for Planned Operative Procedure(s) Verified: Yes Verified Documents: History and Physical - NPO Status Verified Time NPO: 00:00 - Chart Verification Results Verified: CBC, BMP - Additional verifications Patient : No Anesthesia Reactions: No Hx Blood Transfusions: No Blood Transfusion Reaction: No Cephalosporin Allergy: No Previous Colonoscopy: Yes - Cardiovascular Assessment Heart Sounds: S1 & S2 Pulse Strength: Baseline Pulse Rhythm: Regular Peripheral Edema: No - Airway Assessment C-Spine Mobility Assessed: Yes TMJ Mobility Assessed: Yes Dentition: Dentures-good fit - Neurological Assessment Level of Consciousness: Awake, Alert, Appropriate Hx Seizures: No Numbness or tingling in extremities: No - Anesthesia Plan Anesthesia Risk discussed: Yes Anesthesia Plan: Verified ASA Class: III Anesthesia Type: General [facility] History I have reviewed the patient's past medical history: Yes Medical History: Reports:: Cancer (cervical), Hyperlipidemia, Migraine, Urinary Tract Infection Denies:: Diabetes Mellitus Type 1, Diabetes Mellitus Type 2, Hypertension, Internal Pacemaker, MRSA, Seizures *Have you ever received a pneumonia vaccine?: No *Have you received a flu vaccine this season?: Yes Other Medical History: Reports: Hypothyroidism, Other. Denies: Blood Transfusion Reaction Anesthesia experience/problems:: none Laterality Cases: Left: Arthroscopy Shoulder, Right: Other, Bilateral: Arthroscopy Knee Other Surgeries: Yes: Appendectomy, Cholecystectomy, Hysterectomy-Total, Tubal Ligation, Other. No: Pacemaker Amputation: No Fractures: No - *Social History Last grade of school completed: High school graduate Smoking Status: Never smoker Alcohol Intake: never Alcohol Intake Frequency:: other Substance Use Type: denies use *Occupational Status:: employed Housing: house Household Members: spouse *Travel in the last 8 weeks: None Family Hx:: Diabetes, Heart Attack
--- NOTE | 2020-09-10 08:40 | P.PN_ITS ---
[facility] Anesthesia Record Part I Intake, IV Amount: 400 Estimated blood loss (mL): 5 Urine output (mL): 0 Blood Pressure: 122/70 SaO2: 93 Pulse Rate: 78 Respiratory Rate: 16 Temperature: 98.1 F Patient is:: Drowsy, Stable Stable to PACU at:: 08:30
--- NOTE | 2020-09-10 08:41 | HMH.OPNOTE ---
Date of procedure: 09/10/20 Pre-op Diagnosis:: 1. Left foot soft tissue mass x2 Post-op Diagnosis:: Same Procedure performed:: 1. Left foot soft tissue mass excision 2. Left ankle soft tissue mass (lipoma) excision Surgeon:: Chantal Ramirez DPM GAME PROGRAMER:: Walter De La Torre Anesthesia: GETA, regional (left popliteal block) Estimated blood loss (mL): 15 Clinical Note:: Left Foot Soft Tissue Mass Pre-op: Mrs. Krishnan is a 50-year-old female who presents for follow-up evaluation of left foot soft tissue mass. She complains of tingling burning and pain worse after her work shift and with swelling. Patient has tried conservative treatment including: ice, elevation, NSAIDs, strapping, taping, modification of shoe gear, and immobilization in fracture boot. Conservative treatment discussed but has been exhausted. We discussed surgery. All risks and benefits were discussed including but not limited to: recurrence of the mass, damage to blood vessels and nerves, bleeding, infection, wound complications, need for further surgery, prolonged swelling of the extremity, prolonged pain, RSD/CRPS, DVT, and anesthetic complications. No guarantees were given. All questions fully answered. The patient verbalized understanding and agreed to proceed with surgery. Consent was obtained. Patient does not smoke. We discussed risks of DVT/PE. Discussed she will not be in a cast or have prolonged nonweightbearing. She will be immobilized in the fracture boot 2-4 weeks. We discussed her morbid obesity makes her increased risk for DVT. She will take aspirin 2 weeks postoperatively for DVT prophylaxis. Necessary labs and pre-op testing ordered: cbc, cmp, ekg cxr, and covid. PCP-Dr. Mcgill for medical clearance. e-Rx for Ninole, Zofran, Motrin. She has the fracture boot. She understands she will need to be in boot 2-4 weeks post-op. 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 Operative findings:: Left foot soft tissue mass located on the dorsal lateral foot over the fifth metatarsal. Mass suspicious for lipoma measured approximately 3 x 2.7 cm. Left ankle lipoma noted overlying the sinus tarsi and distal fibula, measured approximately 4.1 x 4.2 cm. No purulence, malodor or signs of infection noted. Operative note:: On this date and time, the patient was deemed an appropriate surgical candidate. With informed consent signed, the patient was taken to operating theater after a pre-op regional popliteal nerve block was given by anesthesia. IV Ancef. The patient was positioned supine. General anesthesia was induced. Tourniquet was applied to LEFT mid calf. The LEFT lower extremity was prepped and draped in normal sterile fashion. LEFT ANKLE EXCISION OF LIPOMA: The tourniquet was inflated at 225 mmHg. Attention was directed to the lateral ankle where a lazy S incision was mapped out extending proximal the distal fibula extending toward the base of the fifth metatarsal over the sinus tarsi. Dissection was carried through skin to subcutaneous tissue with care taken to maintain surgical hemostasis and safely retract neurovascular structures. Large amount of subcutaneous tissue noted. The peroneal tendons were not identified, safely retracted. The lipoma was ~4.1x4.2cm excised and sent to pathology as a specimen. The wound was flushed with copious amounts normal sterile saline. LEFT FOOT EXCISION OF SOFT TISSUE MASS: A separate incision was made over the dorsal lateral 5th metatarsal. Dissection was carried down to the level of the subcutaneous tissue. There was a hard palpable lumpy mass of subcutaneous fatty tissue. It was debrided. The mass was ~3 x 2.7cm and sent to pathology as a specimen. The wound was flushed with copious amounts normal sterile saline. Deep subcutaneous tissue was reapproximated with 3-0 Vicryl in interrupted fashion. The subcutaneous tissue was reapproximated in a running fashion with 4-0 Monocryl. Skin was reapproximated in a running subcuticular fashion. Wound cleansed. Tourniqu
--- NOTE | 2020-09-10 15:10 | HMH.ANESII ---
[facility] Anesthesia Record Part II Discharge Time: 08:59 Destination: Surgical Day Care (OP Surgery) PACU nurse assessment reviewed?: Yes Patient Condition:: Good Anesthesia Complications:: None Swallowing reflex intact?: Yes Cyanosis?: No Blood Pressure: 139/74 Pulse Rate: 79 Temperature: 97.9 F Mental Status: Alert & Oriented Pain level:: 0 Nausea and/or vomitting:: None Intake, IV Amount: 0
== END 2020-09-10 09:34 | disposition home or self-care (01) ==
LOC: OR 06:09
PROVIDERS: PCP Family Medicine; Visit Provider Podiatrist
PROC: (CPT 27632; principal; 2020-09-10 07:45)
DX: D17.39 Benign lipomatous neoplasm of skin and subcutaneous tissue of other sites (principal); E03.9 Hypothyroidism, unspecified; Z79.899 Other long term (current) drug therapy
CPT/HCPCS: 27632; 27618; 96374; J2405

== ENCOUNTER → 2020-10-07 13:20 | Outpatient (CLI) | payer OTHER, SELFPAY ==
--- NOTE | 2020-10-07 13:33 | XR_ITS ---
PROCEDURE: XR FOOT WT BEARING LT 3V CLINICAL INDICATION: POSTOP, PAIN Pain swelling and tingling COMPARISON: CR XR FOOT WT BEARING LT 3V from 07/26/2020 FINDINGS: No fracture or dislocation. No lytic or blastic change. There is mild pes planus. No significant degenerative or arthritic changes apparent. Other findings:None. IMPRESSION: Mild pes planus otherwise negative. No significant change Dictated by: Panda Boles MD 10/07/2020 14:59 Panda Boles MD in [place] 10/07/2020 14:59
[2020-10-07 14:17] LABS: Chloride 108 mmol/L (98-107)
[2020-10-07 14:18] LABS: Basophils % 0.8 % (0.1-2.0); Eosinophils # 0.1 K/mm3 (0.0-0.4); Eosinophils % 1.3 % (0.1-12.0); Hematocrit 41.3 % (37.0-47.0); Hemoglobin 13.4 g/dL (12.2-16.2); Lymphocytes # 0.9 K/mm3 (0.7-4.5); Mean Corpuscular HGB Conc 32.5 g/dL (31.8-35.4); Mean Corpuscular Hemoglobin 30.2 pg (27.0-31.2); Mean Corpuscular Volume 92.9 fl (81-99); Monocytes # 0.2 K/mm3 (0.1-1.0); Monocytes % 5.2 % (1.7-9.3); Neutrophils # 3.2 K/mm3 (1.8-7.8); Neutrophils % 72.7 % (37.0-80.0); Platelet Count 198 K/mm3 (142-424); Potassium 3.6 mmoL/L (3.5-5.1); Red Blood Count 4.44 M/mm3 (4.20-5.40); Red Cell Distribution Width 13.8 % (11.5-17.5); Sodium 143 mmol/L (136-145); White Blood Count 4.4 K/mm3 (4.8-10.8)
[2020-10-07 14:20] LABS: Alanine Aminotransferase 16 U/L (12-78); Albumin Level 4.5 g/dl (3.5-5.0); Albumin/Globulin Ratio 1.5 (1.1-1.8); Alkaline Phosphatase 96 U/L (38-126); Anion Gap 13.6 mEq/L (5-15); Aspartate Amino Transferase 27 U/L (14-36); Bilirubin,Total 0.8 mg/dl (0.2-1.3); Blood Urea Nitrogen 10 mg/dl (7-17); Carbon Dioxide 25 mmol/L (22.0-30.0); Estimated Glomerular Filt Rate 47 ml/min (>60); GFR (African American) 57 ML/MIN (>60); Total Protein,Serum 7.5 g/dl (6.3-8.2)
[2020-10-07 14:21] LABS: Calcium 9.9 mg/dl (8.4-10.2); Glucose 129 mg/dl (74-100)
[2020-10-07 14:33] LABS: C-Reactive Protein 1.8 mg/L (0-4)
[2020-10-07 14:53] LABS: Erythrocyte Sedimentation Rate 18 mm/hr (0-30)
== END ==
PROVIDERS: Visit Provider Podiatrist
DX: Z98.890 Other specified postprocedural states (principal); M79.672 Pain in left foot; M79.89 Other specified soft tissue disorders
CPT/HCPCS: 36415; 73630; 80053; 85025; 85651; 86140; 87070; 87077; 87186; 87205

== ENCOUNTER 2020-11-30 14:00 | Outpatient (RCR) | payer OTHER, SELFPAY ==
--- NOTE | 2020-11-10 15:40 | HMH.PTOPWND ---
Rehab Outpt Wound Evaluation Rehab OP Wound Evaluation Start: 11/10/20 15:22 Freq: Status: Active Protocol: Document 11/10/20 15:34 TOM (Rec: 11/10/20 15:40 PHOJOSELINE [id number]) Electronically Signed By Surendra Trujillo, PT 11/10/20 15:34 Subjective/History History History Pt is 50 yowf who presents with L foot and ankle edema S/ P lipoma excision performed . She reports some continued pain in the L foot, worse with prolonged standing and walking. She reports mild tenderness around the lateral L foot incision. She reports her major c/o is edema in the distal foot that will not dissipate. Subjective Subjective Pain at rest 4/10, at worst 6/ 10. Lymphedema Eval Classification of Lymphedema Secondary Lymphedema Yes Post-Surgical Lymphedema Yes Stemmer's sign Stemmer's Sign no Stage of Lymphedema Lymphedema stages Stage I (Pitting edema, reduces w/ elevation, no fibrosis) Skin Changes Dry Skin Yes Redness Yes Other Changes Yes Pain Scale Pain Scale (0-10) 6 Affected Extremities Areas Affected by Lymphedema/Edema Left Lower Extremity Manual Lymphatic Drainage Treatment Area MLD Treatment Area Left Lower Extremity Wound Problems/Impairments Impairments Problems/Impairmments Palpation Tenderness,Impaired Range of Motion,Impaired Strength,Impaired Endurance, Impaired Gait Pattern,Impaired Walking,Impaired Standing, Increased Edema,Lymphedema Present,Subjective C/O Pain, Impaired Self Care/Self Management Prognosis Rehab Potential Good Clinical Impression Consistent with Diagnosis Yes Short Term Goals Number of Weeks 4 Increase Ability to Stand Yes Decrease Edema Yes Decrease Subjective C/O Pain Yes: 10/20 Patient to Understand Lymphedema Yes Treatment and Exercises Strap Setter Goals Number of Weeks 8 Increase Ability to Walk Yes Decrease Lymphedema Yes Decrease Subjective C/O Pain Yes: 08/22 Patient to be Ind w/ HEP Ye
== END 2020-11-30 14:05 | disposition home or self-care (01) ==
LOC: PT 14:00
PROVIDERS: PCP Family Medicine; Visit Provider Podiatrist
DX: R60.0 Localized edema (principal); M79.672 Pain in left foot
CPT/HCPCS: 97110; 97140; 97162; 97760

== ENCOUNTER → 2021-08-29 08:08 | Outpatient (CLI) | payer OTHER, SELFPAY | PROVIDERS: Visit Provider Nurse Practitioner | DX: Z20.822 Contact with and (suspected) exposure to COVID-19 (principal) | CPT/HCPCS: C9803; U0003; U0005 ==

== ENCOUNTER → 2021-09-12 14:28 | Outpatient (CLI) | payer OTHER, SELFPAY | PROVIDERS: Visit Provider Nurse Practitioner | DX: Z20.822 Contact with and (suspected) exposure to COVID-19 (principal) | CPT/HCPCS: C9803; U0003; U0005 ==

== ENCOUNTER 2021-10-06 07:02 | Emergency (ER) | payer OTHER, SELFPAY ==
[2021-10-06 07:03] VITALS: BP 152/79; PULSE 124; RESP 22; TEMP 37.1; O2SAT 98; BMI 41.1
--- NOTE | 2021-10-06 07:13 | CT_ITS ---
FINAL REPORT TECHNIQUE: After the administration of intravenous contrast, axial images were obtained through the abdomen and pelvis by computed tomography. The study was performed with techniques to keep radiation dose as low as reasonably achievable, (ALARA). Individual dose reduction techniques using automated exposure control or adjustment of mA and/or kV according to the patient's size were employed. CLINICAL HISTORY: abd pain, nausea, vomiting, diarrhea FINDINGS: Abdomen: The lung bases are clear. The liver is enlarged up to 21 cm. The gallbladder is absent. The spleen measures at the upper limits of normal. There is a 1.2 cm low-attenuation focus in the superior spleen well seen on image 54 of series 1001. The pancreas and adrenal glands are unremarkable. There is a 5 mm nonobstructing stone in the lower pole of the right kidney. The aorta is normal in caliber. There is no free fluid or adenopathy. Pelvis: A calcification in the right lower quadrant favors a vascular calcification rather than an appendicolith. The appendix is not clearly identified. The urinary bladder is unremarkable. There is a trace amount of free fluid. IMPRESSION: Hepatomegaly. Nonspecific low-density focus in the superior spleen. Nonobstructing right renal stone. Appendix not clearly identified. Reviewed, Interpreted and Dictated by Garett Salas MD Transcribed by Brandt Gracia Authenticated by Garett Salas MD on 10/06/2021 08:38:[address] [facility]
[2021-10-06 07:26] LABS: Microscopic, Urine URINE MICROSCOPIC (MICROSCOPIC)
[2021-10-06 07:28] LABS: Basophils % 0.6 % (0.1-2.0); Eosinophils # 0.1 K/mm3 (0.0-0.4); Eosinophils % 2.2 % (0.1-12.0); Hematocrit 45.2 % (37.0-47.0); Hemoglobin 15.3 g/dL (12.2-16.2); Lymphocytes # 1.1 K/mm3 (0.7-4.5); Lymphocytes % 27.9 % (10-50); Mean Corpuscular HGB Conc 33.9 g/dL (31.8-35.4); Mean Corpuscular Hemoglobin 30.8 pg (27.0-31.2); Mean Corpuscular Volume 90.6 fl (81-99); Mean Platelet Volume 7.8 fl (7.4-10.4); Monocytes # 0.4 K/mm3 (0.1-1.0); Monocytes % 10.8 % (1.7-9.3); Neutrophils # 2.2 K/mm3 (1.8-7.8); Neutrophils % 58.6 % (37.0-80.0); Platelet Count 214 K/mm3 (142-424); Red Blood Count 4.98 M/mm3 (4.20-5.40); Red Cell Distribution Width 13.2 % (11.5-17.5); White Blood Count 3.8 K/mm3 (4.8-10.8)
[2021-10-06 07:29] LABS: Chloride 105 mmol/L (98-107); Potassium 3.5 mmoL/L (3.5-5.1); Sodium 139 mmol/L (136-145)
[2021-10-06 07:30] LABS: Appearance,Urine SL CLOUDY (Clear); Bilirubin,Urine Negative (Negative); Blood, Urine TRACE-I (Negative); Color,Urine YELLOW (Yellow); Glucose,Urine (UA) Negative (Negative); Ketones,Urine Negative (Negative); Leukocyte Esterase,Urine 1+ (Negative); Nitrate,Urine Negative (Negative); Protein,Urine Negative (Negative); Specific Gravity, Urine 1.025 (1.005-1.030); Urobilinogen,Urine 0.2 EU/dl (0.2)
[2021-10-06 07:31] LABS: Blood Urea Nitrogen 14 mg/dl (7-17); Creatinine Clearance Estimated 86 mL/min (50-200); Estimated Glomerular Filt Rate 43 ml/min (>60); GFR (African American) 52 ML/MIN (>60)
[2021-10-06 07:32] LABS: Alanine Aminotransferase 17 U/L (12-78); Albumin Level 4.9 g/dl (3.5-5.0); Albumin/Globulin Ratio 1.5 (1.1-1.8); Alkaline Phosphatase 109 U/L (38-126); Anion Gap 12.5 mEq/L (5-15); Aspartate Amino Transferase 40 U/L (14-36); Bilirubin,Total 0.9 mg/dl (0.2-1.3); Calcium 9.2 mg/dl (8.4-10.2); Carbon Dioxide 25 mmol/L (22.0-30.0); Globulin 3.3 g/dL (1.3-3.2); Glucose 98 mg/dl (74-100); Lipase 115 U/L (23-300); Total Protein,Serum 8.2 g/dl (6.3-8.2)
[2021-10-06 07:37] LABS: C-Reactive Protein 9.5 mg/L (0-4)
[2021-10-06 07:51] LABS: Bacteria,Urine 1+ /lpf; RBC,Urine Occasional #/hpf (0-3); Squamous Epithelial Cell,Urine Occasional #/hpf (0-5)
[2021-10-06 07:56] LABS: Erythrocyte Sedimentation Rate 21 mm/hr (0-30)
[2021-10-06 08:05] VITALS: BP 119/68; PULSE 79; O2SAT 94
--- NOTE | 2021-10-06 08:12 | HMH.EDGENADL ---
ED Disposition Clinical Impression: Acute gastroenteritis Disposition: Home, Self-Care Condition on Discharge: Good Instructions: DI for Diarrhea and Traveler's Diarrhea -- Adult, DI for Nausea -- Adult Additional Instructions: Collect a diarrhea sample using the provided supplies and return it along with the order form to ER registration at [facility] for testing. Obtain the results of this test from your primary care provider the next day. Additional instructions for VOMITING/DIARRHEA: See your physician as soon as possible for further evaluation. Return immediately if severe abdominal pain, uncontrollable vomiting, shortness of breath, fever, vomiting of blood or abdominal distention. Prescriptions: Ondansetron [Zofran 4mg ODT] 4 mg PO TIDP PRN #10 tab PRN Reason: Nausea And Vomiting Transmission Status: Sent to [facility] Referrals: Howard Mcgill MD [Primary Care Provider] - Forms: Work/School Release - Critical Care Critical Care Time: No Attestation: On 10/06/21, the high probability of a clinically significant, sudden or life threatening deterioration of the following system(s) required my full and direct attention, intervention and personal management. The time I documented below is in addition to time spent performing reported procedures but includes the following listed in this critical care notation. Medical Decision Making - Hardeep Inquiry Pt receiving controlled substance: No Vital Signs: 10/06/21 07:03 10/06/21 08:05 Temperature 98.7 F Temperature Source Oral Pulse Rate 79 Pulse Rate [Radial] 124 H Respiratory Rate 22 Blood Pressure 119/68 Blood Pressure [Right Arm] 152/79 H Blood Pressure Mean [Right Arm] 103 Blood Pressure Position [Right Arm] Sitting 02 Sat by Pulse Oximetry 98 94 L Oxygen Delivery Method Room Air Room Air - Lab Data Lab Results 10/06/21 07:14: WBC 3.8 L, RBC 4.98, Hgb 15.3, Hct 45.2, MCV 90.6, MCH 30.8, MCHC 33.9, RDW 13.2, Plt Count 214, MPV 7.8, Neut % (Auto) 58.6, Lymph % (Auto) 27.9, [place] % (Auto) 10.8 H, Eos % (Auto) 2.2, Baso % (Auto) 0.6, Neut # (Auto) 2.2, Lymph # (Auto) 1.1, [place] # (Auto) 0.4, Eos # (Auto) 0.1, Baso # (Auto) 0.0 10/06/21 07:14: Sodium 139, Potassium 3.5, Chloride 105, Carbon Dioxide 25, Anion Gap 12.5, BUN 14, Creatinine 1.30 H, Estimated Creat Clear 86, Estimated GFR 43 L, Est GFR ( Amer) 52 L, Glucose 98, Calcium 9.2, Total Bilirubin 0.9, AST 40 H, ALT 17, Alkaline Phosphatase 109, C-Reactive Protein 9.5 H, Total Protein 8.2, Albumin 4.9, Globulin 3.3 H, Albumin/Globulin Ratio 1.5, Lipase 115 10/06/21 07:14: ESR 21 10/06/21 07:23: Urine Color Yellow, Urine Appearance Sl cloudy, Urine pH 6.0, Ur Specific [place] 1.025, Urine Protein Negative, Urine Glucose (UA) Negative, Urine Ketones Negative, Urine Blood Trace-i, Urine Nitrate Negative, Urine Bilirubin Negative, Urine Urobilinogen 0.2, Ur Leukocyte Esterase 1+ A, Urine RBC Occasional, Urine WBC 10-20, Ur Squamous Epith Cells Occasional, Urine Bacteria 1+ 10/06/21 07:25: Lactate 1.0 Result diagrams: 10/06/21 07:14 10/06/21 07:14 Orders (Tests/Meds): ED MEDICATIONS Discontinued Medications Generic Name Dose Route Start Last Admin Trade Name Freq PRN Reason Stop Dose Admin Sodium Chloride 1,000 mls @ 999 mls/hr 10/06/21 07:15 10/06/21 07:17 Sod Chlor 0.9% 1000ml Bag IV 10/06/21 08:15 999 mls/hr .Q1H1M SHIRLEY Administration Iopamidol 75 ml 10/06/21 07:43 10/06/21 07:43 Iopamidol-370 (76%);100ml Bottle IV 10/06/21 07:44 75 ml ONCE ONE Administration Ondansetron HCl 4 mg 10/06/21 07:15 10/06/21 07:17 Ondansetron 4mg/2ml Vial IV 10/06/21 07:16 4 mg ONCE ONE Administration Sodium Chloride 10 ml 10/06/21 07:43 10/06/21 07:43 Sodium Chloride 0.9% 10ml Syr (Rad Only) IV 10/06/21 07:44 10 ml ONCE ONE Administration ORDERS Category Date Time Status Diarrhea 23 Panel, PCR Stat Lab 10/06/21 07:13 Order
--- NOTE | 2021-10-06 09:15 | PC.NURSE ---
pt given outpt order for diarrhea panel, given collection hat and cup for sample
[2021-10-06 09:16] VITALS: BP 121/68; PULSE 78; RESP 18; TEMP 36.8; O2SAT 96
== END 2021-10-06 09:18 | disposition home or self-care (01) ==
PROVIDERS: Emergency Medicine; Emergency Provider Emergency Medicine; PCP Family Medicine
DX: K52.9 Noninfective gastroenteritis and colitis, unspecified (principal); R10.84 Generalized abdominal pain; E78.5 Hyperlipidemia, unspecified; G43.709 Chronic migraine without aura, not intractable, without status migrainosus; E03.9 Hypothyroidism, unspecified; Z79.899 Other long term (current) drug therapy
CPT/HCPCS: 74177; 80053; 81001; 83605; 83690; 85025; 85651; 86140; 87086; 96365; 96375; 96376; 99283; 99284; J2405; Q9967

== ENCOUNTER → 2021-11-03 09:00 | Outpatient (CLI) | payer OTHER, SELFPAY ==
--- NOTE | 2021-11-03 09:03 | US_ITS ---
FINAL REPORT CLINICAL HISTORY: HEPATOMEGALY-- recent ct-- eval area on spleen COMPARISON: CT dated October 06, 2021 FINDINGS: Sonographic images of the abdomen were obtained. The liver has increased echogenicity consistent with fatty infiltration. The gallbladder is surgically absent. There is no evidence of biliary ductal dilatation. The common hepatic duct measures 2 mm, which is within normal limits. Limited images of the pancreas are unremarkable. There is a 1.0 cm hyperechoic focus in the spleen. The right kidney measures 10.2 cm in length. The left kidney measures 10.5 cm in length. There is normal renal echogenicity. There is no evidence of hydronephrosis. The aorta has an unremarkable appearance. Limited images of the inferior vena cava are unremarkable. IMPRESSION: 1.0 cm hypoechoic lesion in the spleen which is consistent with a hemangioma. Reviewed, Interpreted and Dictated by Garett Salas MD Transcribed by Vidhya Farrell Authenticated by Garett Salas MD on 11/03/2021 12:57:[address] [facility]
== END ==
PROVIDERS: PCP Family Medicine; Visit Provider Family Medicine
DX: R16.0 Hepatomegaly, not elsewhere classified (principal)
CPT/HCPCS: 76700

== ENCOUNTER → 2022-04-18 12:28 | Outpatient (CLI) | payer OTHER, SELFPAY ==
[2022-04-18 14:04] LABS: Basophils # 0.1 K/mm3 (0-0.2); Basophils % 1.1 % (0.1-2.0); Eosinophils # 0.1 K/mm3 (0.0-0.4); Hematocrit 44.2 % (37.0-47.0); Hemoglobin 14.3 g/dL (12.2-16.2); Lymphocytes # 1.2 K/mm3 (0.7-4.5); Lymphocytes % 21.5 % (10-50); Mean Corpuscular HGB Conc 32.2 g/dL (31.8-35.4); Mean Corpuscular Volume 93.2 fl (81-99); Mean Platelet Volume 8.7 fl (7.4-10.4); Monocytes # 0.4 K/mm3 (0.1-1.0); Monocytes % 6.8 % (1.7-9.3); Neutrophils # 3.9 K/mm3 (1.8-7.8); Neutrophils % 69.6 % (37.0-80.0); Platelet Count 263 K/mm3 (142-424); Red Blood Count 4.74 M/mm3 (4.20-5.40); Red Cell Distribution Width 13.5 % (11.5-17.5); White Blood Count 5.6 K/mm3 (4.8-10.8)
--- NOTE | 2022-04-18 14:22 | XR_ITS ---
FINAL REPORT CLINICAL HISTORY: LT RIB PAIN,lateral pain, no known injury COMPARISON: Chest radiograph dated August 25, 2020 FINDINGS: LEFT RIBS Four views of the left ribs show irregularities of the left 4th and 6th lateral ribs favoring chronic fractures. No definite acute fracture. There is no pneumothorax or pleural fluid collection. Frontal chest radiograph is unremarkable. IMPRESSION: No definite acute fracture. Findings favor chronic fractures of the left 4th and 6th lateral ribs. No pneumothorax. Reviewed, Interpreted and Dictated by Brett Garcia III, MD Transcribed by Vidhya Farrell Authenticated and [facility]
== END ==
PROVIDERS: PCP Family Medicine; Visit Provider Family Medicine
DX: R07.81 Pleurodynia (principal); D72.819 Decreased white blood cell count, unspecified
CPT/HCPCS: 36415; 71101; 85025

== ENCOUNTER 2022-09-12 12:43 | Emergency (ER) | payer OTHER, SELFPAY ==
--- NOTE | 2022-09-12 12:48 | XR_ITS ---
FINAL REPORT CLINICAL HISTORY: FELL ON ICE, left shoulder pain FINDINGS: LEFT SHOULDER Three views demonstrate no acute fracture or dislocation. There is mild degenerative change. The visualized bony structures are well aligned. There is a chronic left 4th rib fracture. No soft tissue abnormality is seen. IMPRESSION: Mild degenerative change with no acute bony abnormality. Reviewed, Interpreted and Dictated by Brett Garcia III, MD Transcribed by Vidhya Farrell Authenticated and [facility]
[2022-09-12 12:55] VITALS: BP 128/86; PULSE 72; RESP 18; TEMP 36.8; O2SAT 100; BMI 38.7
[2022-09-12 13:12] VITALS: BP 128/86; PULSE 72; RESP 18; TEMP 36.8; O2SAT 100
--- NOTE | 2022-09-12 13:19 | EXP.UTC ---
Discharge Plan Disposition Patient Disposition: Home, Self-Care Condition: Good Prescriptions Prescriptions: No Action levothyroxine 112 mcg tablet 112 mcg PO DAILY 30 Days Qty: 30 pravastatin 40 mg tablet 40 mg PO DAILY 30 Days Qty: 30 cholecalciferol (vitamin D3) 1,000 unit capsule 2,000 unit PO ONCE topiramate 50 MG tablet See Rx Instructions .Route .COMPLEX Rx Instructions: TAKE THREE TABLETS BY MOUTH EVERY DAY AT BEDTIME ondansetron 4 MG tablet,disintegrating 4 mg PO TIDP PRN (Reason: Nausea And Vomiting) Qty: 10 0RF Referrals Follow up/Referrals: Howard Mcgill MD [Primary Care Provider] - See instructions Richard Valerio JR, MD [Physician] - See instructions Activity Restrictions/Add. Instructions Additional Instructions/Restrictions: *RICE, Rest the extremity, Ice 15-20 minutes 3-4 times daily, Compress- wear the abby wrap as discussed as much as possible to help reduce swelling and pain, Elevate the extremity when at rest Follow up with Orhtopedics if pain persists *Elevate when resting? *Ibuprofen 600-800mg every 6-8 hours as needed for pain an inflammation. If need something more can take Tylenol in between doses of Ibuprofen to help Clinical Impressions Clinical Impression: Injury of shoulder, left Instructions Patient Instructions: Acetaminophen (Alternative Therapy), How To Perform RICE (Rest, Ice, Compress, Elevate), Ibuprofen Discharge ED Provider: Sarika Albert [facility] General Stated complaint: left shoulder -left side of head Mode of Arrival: Ambulatory Source of Information: Patient Limitations: No Limitations Time Seen by Provider: 09/12/22 13:19 Description of Symptoms (Recalled from Triage Doc. by RN): PATIENT STATES SHE FELL ON ICE IN PARKING LOT THIS MORNING AND HIT LEFT SHOULDER AND LEFT SIDE OF HEAD. DENIES LOC, HEADACHE, NAUSEA, VOMITING HEENT Symptoms (Recalled from RN notes): No Resp Symptoms (Recalled from RN notes): No Skin Symptoms (Recalled from RN notes): No MS Symptoms (Recalled from RN notes): Yes Functional Status (Recalled from RN notes): WNL History of Present Illness Provider Complaint: Patient states that there was ice in the parking lot when she got to work and after getting out of the car she slipped and fell and landed on her left side States that she landed on her left shoulder, hip etc and hit the left side of her head on something States that she has been having pain in her left shoulder ever since the fall and has previous surgeries on that shoulder States that her hip and head are ok she is just worried about her shoulder and wanted to get it checked Denies any other injury at this time Denies LOC Denies vision changes Related Data Home Medications Medication Instructions Recorded Confirmed cholecalciferol (vitamin D3) 25 2,000 unit PO ONCE Supplement 09/28/17 10/06/21 mcg (1,000 unit) capsule levothyroxine 112 mcg tablet 112 mcg PO DAILY thyroid 30 days 03/11/18 10/06/21 ##30 pravastatin 40 mg tablet 40 mg PO DAILY Cholesterol 30 days 03/11/18 10/06/21 ##30 topiramate 50 mg tablet See Rx Instructions .Route 10/06/21 10/06/21 .COMPLEX MIGRAINES Previous Rx's Medication Instructions Recorded ondansetron 4 mg disintegrating 4 mg PO TIDP PRN Nausea And 10/06/21 tablet Vomiting #10 tabs Allergies Allergy/AdvReac Type Severity Reaction Status Date / Time naproxen [NAPROXEN] Allergy Mild HEART Verified 03/17/21 15:09 BEATING TOO FAST Worker's Comp Is this a Worker's Comp case?: No [facility] Disclaimer: The information contained in this section may have been updated after the patient was seen, as this information can be updated by other users. Medical History (Updated 09/12/22 @ 13:51 by Sarika Albert APRN) Hyperlipidemia Migraine Thyroid disease Urinary tract infection Surgical History (Updated 09/12/22 @ 13:03 by Khloe Hopper RN) History of appendectom
== END 2022-09-12 13:54 | disposition home or self-care (01) ==
PROVIDERS: Emergency Provider Nurse Practitioner; PCP Family Medicine
DX: M25.512 Pain in left shoulder (principal); S49.92XA Unspecified injury of left shoulder and upper arm, initial encounter; W00.0XXA Fall on same level due to ice and snow, initial encounter; Y92.481 Parking lot as the place of occurrence of the external cause; R51.9 Headache, unspecified
CPT/HCPCS: 73030; 99212; G0463

== ENCOUNTER 2022-10-26 16:00 | Outpatient (RCR) | payer OTHER, SELFPAY ==
--- NOTE | 2022-09-29 15:06 | HMH.PTOPEV ---
PT Outpatient Evaluation Rehab PT Outpatient Evaluation Start: 09/29/22 13:54 Freq: Status: Active Protocol: Document 09/29/22 14:26 PATY (Rec: 09/29/22 15:06 PATY [id number]) E-signed By Miguelangel Brewer, PT Outpatient Therapy Subjective History Subjective History Patient is a 52 year old female presenting to outpatient PT with reports L shoulder pain starting 09/12/22 . Patient reports a slip and fall on ice resulting in a stretch on her shoulder. Patient has previously had 2 arthroscopic surgeries on the same shoulder. Most recent imaging negative. Other comorbidities include HL and B knee arthroscopy. Chief Complaint Pain,Stiff Symptom Type Ache Symptoms Relieved By Rest/Positioning,Ice Symptoms Aggravated By Physical Activity,Lifting Prior Functional Limitations None Current Functional Limitations Reaching,Lifting,Housework Symptom Description Intermittent Level of pain today (0-10) 1 Pain scale - at its best (0-10) 0 Pain scale - at its worst (0-10) 5 Shoulder/Elbow Eval Shoulder Objective Measurements Posture Shoulder Posture Sitting Position (R) Rounded,(L) Forward Shoulder Posture Standing Position (L) Forward,(R) Forward Scapula Posture Sitting Position (L) Protracted,(R) Protracted Scapular Posture Standing Position (L) Protracted,(R) Protracted Shoulder ROM Left Shoulder Abduction Active Range of 88 Motion (degrees) Shoulder Flexion Active Range of Motion 92 (degrees) Query Text: Shoulder External Rotation Active Range 71 of Motion (degrees) Shoulder Internal Rotation Active Range WNL of Motion (degrees) Shoulder MMT Shoulder Abduction Strength Grade 4 Good Shoulder Flexion Strength Grade 4 Good Shoulder External Rotation Strength 4- Good- Grade Shoulder Internal Rotation Strength 4 Good Grade Shoulder Special Tests impingement sign present shoulder exam left standard Shoulder Empty Can (Supraspinatus) Test Positive Left Shoulder Archer-Alexey Impingement Positive Left Test Shoulder Neer Impingement Test Positive Left Shoulder Speed's Sign Test Negative Left Elbow Objective Measurements Outpatient Therapy Assessment Impairments Problems/Impairmments Palpation Tenderness,Impaired Range of Motion,Impaired
== END 2022-10-26 16:05 | disposition home or self-care (01) ==
LOC: PT 16:00
PROVIDERS: PCP Family Medicine; Visit Provider Orthopaedic Surgery
DX: M25.512 Pain in left shoulder (principal); S49.92XA Unspecified injury of left shoulder and upper arm, initial encounter
CPT/HCPCS: 97010; 97014; 97033; 97035; 97110; 97163; 97530; G0283

== ENCOUNTER → 2022-12-11 15:55 | Outpatient (CLI) | payer OTHER, SELFPAY ==
--- NOTE | 2022-12-11 16:00 | XR_ITS ---
FINAL REPORT CLINICAL HISTORY: foot pain FINDINGS: 3 weight-bearing views of the right foot were obtained. There is no acute fracture or dislocation. There is a small plantar spur. The joint spaces are intact. The soft tissues are unremarkable. IMPRESSION: No acute process. Reviewed, Interpreted and Dictated by Garett Salas MD Transcribed by Brandt Gracia Authenticated and [facility]
== END ==
PROVIDERS: PCP Family Medicine; Visit Provider Podiatrist
DX: M79.671 Pain in right foot (principal)
CPT/HCPCS: 73630

== ENCOUNTER → 2022-12-19 07:11 | Outpatient (CLI) | payer OTHER, SELFPAY ==
--- NOTE | 2022-12-19 07:34 | MR_ITS ---
FINAL REPORT CLINICAL HISTORY: foot pain. TWO KNOTS ON LATERAL SIDE OF FOOT. LATERAL SIDED FOOT PAIN. FINDINGS: Multiplanar MR imaging of the right foot was performed with and without contrast. There are cystic changes in the calcaneocuboid joint, consider arthritic in nature. The remaining marrow signal pattern is normal. There is very minimal increased signal in the anterior margin of the distal Achilles tendon consistent with mild tendinitis. The other tendons are intact. The musculature is intact. No localized soft tissue inflammation is identified. No cystic or soft tissue mass is identified. There is prominent subcutaneous fat near the 2 markers of the lateral hindfoot and midfoot, lipomas are not excluded. There is no evidence of abnormal contrast enhancement. IMPRESSION: No evidence of soft tissue mass or abnormal contrast enhancement in the region of the palpable abnormalities, small lipoma is not excluded. Mild Achilles tendinitis. No evidence of abnormal contrast enhancement. Reviewed, Interpreted and Dictated by Compa Harmon MD Transcribed by Crystal Cortes Authenticated and [facility]
== END ==
PROVIDERS: PCP Family Medicine; Visit Provider Podiatrist
DX: M79.671 Pain in right foot (principal); D17.20 Benign lipomatous neoplasm of skin and subcutaneous tissue of unspecified limb; M79.89 Other specified soft tissue disorders
CPT/HCPCS: 73720; A9576

== ENCOUNTER → 2023-01-26 07:19 | Outpatient (CLI) | payer OTHER, SELFPAY ==
[2023-01-26 08:42] LABS: Basophils % 0.5 % (0.1-2.0); Eosinophils # 0.1 K/mm3 (0.0-0.4); Eosinophils % 1.7 % (0.1-12.0); Hematocrit 42.7 % (37.0-47.0); Hemoglobin 14.2 g/dL (12.2-16.2); Lymphocytes # 1.3 K/mm3 (0.7-4.5); Mean Corpuscular HGB Conc 33.2 g/dL (31.8-35.4); Mean Corpuscular Hemoglobin 30.6 pg (27.0-31.2); Mean Corpuscular Volume 92.3 fl (81-99); Mean Platelet Volume 8.3 fl (7.4-10.4); Monocytes # 0.3 K/mm3 (0.1-1.0); Monocytes % 7.6 % (1.7-9.3); Neutrophils # 2.3 K/mm3 (1.8-7.8); Neutrophils % 57.2 % (37.0-80.0); Platelet Count 223 K/mm3 (142-424); Red Blood Count 4.63 M/mm3 (4.20-5.40); Red Cell Distribution Width 13.3 % (11.5-17.5)
[2023-01-26 09:24] LABS: Alanine Aminotransferase 20 U/L (12-78); Albumin Level 4.3 g/dl (3.5-5.0); Albumin/Globulin Ratio 1.6 (1.1-1.8); Alkaline Phosphatase 120 U/L (38-126); Anion Gap 18.2 mEq/L (5-15); Aspartate Amino Transferase 32 U/L (14-36); Bilirubin,Total 0.8 mg/dl (0.2-1.3); Blood Urea Nitrogen 14 mg/dl (7-17); Calcium 9.3 mg/dl (8.4-10.2); Carbon Dioxide 22 mmol/L (22.0-30.0); Chloride 108 mmol/L (98-107); Estimated Glomerular Filt Rate 52 ml/min (>60); GFR (African American) 63 ML/MIN (>60); Globulin 2.7 g/dL (1.3-3.2); Glucose 87 mg/dl (74-100); Potassium 4.2 mmoL/L (3.5-5.1); Sodium 144 mmol/L (136-145)
== END ==
PROVIDERS: PCP Family Medicine; Visit Provider Podiatrist
DX: M79.671 Pain in right foot (principal); D17.79 Benign lipomatous neoplasm of other sites; M79.89 Other specified soft tissue disorders
CPT/HCPCS: 36415; 80053; 85025

== ENCOUNTER → 2023-02-06 10:22 | Outpatient (CLI) | payer OTHER, SELFPAY ==
--- NOTE | 2023-02-06 11:04 | XR_ITS ---
FINAL REPORT TECHNIQUE: Chest PA & Lateral CLINICAL HISTORY: cough COMPARISON: April 2022 FINDINGS: 2 views of the chest were performed. The heart size is normal. The mediastinum is within normal limits. There is no acute cardiopulmonary process. There are no pleural effusions. There is no pneumothorax. The bony thorax appears intact. IMPRESSION: No acute cardiopulmonary process. Reviewed, Interpreted and Dictated by Brett Garcia III, MD Transcribed by Brandt Gracia Authenticated and [facility]
--- NOTE | 2023-02-06 11:24 | ECG_ITS ---
APPROVED REPORT Exam: Resting ECG HR:60 bpm ECG Measurements Heart Rate 60 AXES ME 170 P 13 QRSd 91 QRS 5 QT 378 T 72 QTc 378 Conclusion SINUS RHYTHM NONSPECIFIC ST & T-WAVE ABNORMALITY BORDERLINE ECG UNCONFIRMED REPORT Electronically signed by : Bubba Hendricks MD 02/06/2023 21:33:42
== END ==
PROVIDERS: PCP Family Medicine; Visit Provider Podiatrist
DX: Z01.810 Encounter for preprocedural cardiovascular examination (principal); D17.20 Benign lipomatous neoplasm of skin and subcutaneous tissue of unspecified limb; M79.671 Pain in right foot; M79.89 Other specified soft tissue disorders
CPT/HCPCS: 71046; 93005

== ENCOUNTER 2023-02-07 07:05 | Emergency (ER) | payer OTHER, SELFPAY ==
[2023-02-07 07:14] VITALS: BP 135/72; PULSE 78; RESP 20; TEMP 36.8; O2SAT 98; BMI 41.1
--- NOTE | 2023-02-07 07:19 | HMH.EDSKAF ---
Discharge Plan Disposition Patient Disposition: Home, Self-Care Prescriptions Prescriptions: New minocycline 100 mg Capsule 100 mg PO BID Qty: 20 0RF sulfamethoxazole-trimethoprim [Bactrim DS] 800-160 mg Tablet 1 tab PO Q12H Qty: 20 0RF No Action levothyroxine 112 mcg tablet 112 mcg PO DAILY 30 Days Qty: 30 pravastatin 40 mg tablet 40 mg PO DAILY 30 Days Qty: 30 cholecalciferol (vitamin D3) 1,000 unit capsule 2,000 unit PO ONCE ibuprofen 800 mg tablet 800 mg PO fluticasone propionate [Flonase Allergy Relief] 50 mcg/actuation spray,suspension 1 spray intranasal DAILY Qty: 10 1RF Rx Instructions: administer into each nostril topiramate 50 MG tablet See Rx Instructions .Route .COMPLEX Rx Instructions: TAKE THREE TABLETS BY MOUTH EVERY DAY AT BEDTIME Referrals Follow up/Referrals: Umang Gamino MD [Primary Care Provider] - See instructions Clinical Impressions Clinical Impression: Abscess of skin or subcutaneous tissue Instructions Patient Instructions: DI for Skin Abscess Discharge ED Provider: Frida (ED)Rm Skin/Abscess/FB HPI General Chief complaint: Skin/Abscess/Foreign Body Stated complaint: Insect bite lower abd Time Seen by Provider: 02/07/23 07:19 Mode of Arrival: Ambulatory Source of Information: Patient and Medical Record Limitations: No Limitations Description of Symptoms (Recalled from ER Triage Doc. by RN): pt to ed c/o right lower abd insect bite. pt states she first noticed it a couple days ago. pt denies any recent fever. History of Present Illness HPI narrative: rt abd area with reddness and tender area - over the last few days complaint: abscess/boil Onset (ago): day(s) Severity: moderate Associated symptoms: denies other symptoms Related Data Home Medications Medication Instructions Recorded Confirmed cholecalciferol (vitamin D3) 25 2,000 unit PO ONCE Supplement 09/28/17 01/01/23 mcg (1,000 unit) capsule levothyroxine 112 mcg tablet 112 mcg PO DAILY thyroid 30 days 03/11/18 01/01/23 ##30 pravastatin 40 mg tablet 40 mg PO DAILY Cholesterol 30 days 03/11/18 01/01/23 ##30 topiramate 50 mg tablet See Rx Instructions .Route 10/06/21 01/01/23 .COMPLEX MIGRAINES ibuprofen 800 mg tablet 800 mg PO 01/01/23 01/01/23 Previous Rx's Medication Instructions Recorded fluticasone propionate 50 1 spray intranasal DAILY #10 mL 10/19/22 mcg/actuation nasal spray,suspension (Flonase Allergy Relief) minocycline 100 mg capsule 100 mg PO BID #20 caps 02/07/23 sulfamethoxazole 800 1 tab PO Q12H #20 tabs 02/07/23 mg-trimethoprim 160 mg tablet (Bactrim DS) Allergies Allergy/AdvReac Type Severity Reaction Status Date / Time naproxen [NAPROXEN] Allergy Mild HEART Verified 01/01/23 11:40 BEATING TOO FAST [facility] Disclaimer: The information contained in this section may have been updated after the patient was seen, as this information can be updated by other users. Medical History Acquired hammer toes of both feet Acute gastroenteritis Contusion of hip, left Edema of left foot Foot pain Foot pain Gastroenteritis Hyperlipidemia Knee pain Knee sprain Laceration Left shoulder pain Lumbar back sprain Mass of soft tissue of foot Migraine Thyroid disease Urinary tract infection UTI (urinary tract infection) Surgical History History of appendectomy History of cholecystectomy History of hysterectomy History of tubal ligation Status post foot surgery Social History Smoking Status: Never smoker alcohol intake: never counseling provided: none substance use type: denies use current occupational status: employed Travel in the last 8 weeks: None household members: spouse housing: house current occupat
[2023-02-07 07:37] VITALS: BP 126/55; PULSE 72; RESP 20; TEMP 36.8; O2SAT 98
== END 2023-02-07 07:53 | disposition home or self-care (01) ==
PROVIDERS: Emergency Provider Emergency Medicine; PCP Family Medicine
DX: L02.211 Cutaneous abscess of abdominal wall (principal); B96.89 Other specified bacterial agents as the cause of diseases classified elsewhere; E03.9 Hypothyroidism, unspecified; E78.5 Hyperlipidemia, unspecified
CPT/HCPCS: 87070; 87077; 87186; 87205; 99283; 99284

== ENCOUNTER 2023-02-14 06:06 | Day surgery (SDC) | payer OTHER, SELFPAY ==
[2023-02-12 10:59] VITALS: BMI 41.1
[2023-02-14] VITALS (10 sets, daily range): BP systolic 111–141; BP diastolic 58–90; PULSE 74–100; RESP 16–19; TEMP 36.1–43; O2SAT 95–100
--- NOTE | 2023-02-14 07:04 | EXP.ANES.CKL ---
[facility] Disclaimer: The information contained in this section may have been updated after the patient was seen, as this information can be updated by other users. Medical History Acquired hammer toes of both feet Acute gastroenteritis Cervical cancer Contusion of hip, left Edema of left foot Foot pain Foot pain Gastroenteritis Hyperlipidemia Hypothyroid Knee pain Knee sprain Laceration Left shoulder pain Lumbar back sprain Mass of soft tissue of foot Migraine Thyroid disease Urinary tract infection UTI (urinary tract infection) Surgical History H/O shoulder surgery History of appendectomy History of cholecystectomy History of hysterectomy History of knee surgery History of tubal ligation Status post foot surgery Family History Other Family history of diabetes mellitus type II Family history of hypertension Family history of myocardial infarction Social History Smoking Status: Never smoker alcohol intake: never counseling provided: none substance use type: denies use current occupational status: employed Travel in the last 8 weeks: None household members: spouse housing: house current occupation: [employer] caffeine: Yes [employer] Anesthesia Checklist Patient Identification Patient Identification: Arm Band and Verbal (Name & ) Structural Data Admitted From: Home Planned Operative Procedure/s: excision soft tissue mass rt foot Consent for Planned Operative Procedure(s) Verified: Yes Verified Documents: Surgical Consent and History and Physical NPO Status Verified Time NPO: 00:00 Additional verifications Anesthesia Reactions: No (nausea) Hx Blood Transfusions: No Blood Transfusion Reaction: No Airway Assessment C-Spine Mobility Assessed: Yes TMJ Mobility Assessed: Yes Dentition: Poor Dentition Neurological Assessment Level of Consciousness: Awake and Alert Anesthesia Plan Anesthesia Risk discussed: Yes ASA Class: II Anesthesia Type: General
--- NOTE | 2023-02-14 07:38 | EXP.ANES.CKL ---
[facility] Disclaimer: The information contained in this section may have been updated after the patient was seen, as this information can be updated by other users. Medical History Acquired hammer toes of both feet Acute gastroenteritis Cervical cancer Contusion of hip, left Edema of left foot Foot pain Foot pain Gastroenteritis Hyperlipidemia Hypothyroid Knee pain Knee sprain Laceration Left shoulder pain Lumbar back sprain Mass of soft tissue of foot Migraine Thyroid disease Urinary tract infection UTI (urinary tract infection) Surgical History H/O shoulder surgery History of appendectomy History of cholecystectomy History of hysterectomy History of knee surgery History of tubal ligation Status post foot surgery Family History Other Family history of diabetes mellitus type II Family history of hypertension Family history of myocardial infarction Social History Smoking Status: Never smoker alcohol intake: never counseling provided: none substance use type: denies use current occupational status: employed Travel in the last 8 weeks: None household members: spouse housing: house current occupation: [employer] caffeine: Yes [employer] Anesthesia Checklist Structural Data Planned Operative Procedure/s: excision soft tissue mass rt foot Additional verifications Anesthesia Reactions: No (nausea) Hx Blood Transfusions: No Blood Transfusion Reaction: No Anesthesia Plan Anesthesia Risk discussed: Yes Anesthesia Type: General w/block
--- NOTE | 2023-02-14 08:10 | SUR.PREOP ---
0800- FAMILY UPDATED PER MD ORDER BY RENNY SUBRAMANIAN. STATED, PLEASE LET HER KNOW THAT THE PROCEDURE HAS STARTED.
--- NOTE | 2023-02-14 08:57 | EXP.OP.NOTE ---
Date of procedure: 02/14/23 Pre-op Diagnosis:: Right ankle lipoma Right foot soft tissue mass Post-op Diagnosis:: Same Procedure performed:: Right foot excision of soft tissue mass (>5cm) Right ankle excision of lipoma (>5cm) Application of graft Surgeon:: Chantal Ramirez DPM ROASTERMAN:: Other (Samuel Valderrama) Anesthesia: GETA and regional (Right popliteal nerve block) Estimated blood loss (mL): 20 Clinical Note:: 52 y/o female with history of left foot soft tissue mass/lipoma with mri left foot done 08/10/20. Surgery for excision of soft tissue mass x2 on 09/10/20. Patient had a superficial wound dehiscence from the Monocryl with a positive wound culture 10/10/2020 which showed MSSA susceptible to clindamycin, doxycycline, and Bactrim DS. MRI right foot 12/19/2022 showed lipoma to the lateral foot/ankle. Conservative treatment included ice, elevation, NSAIDs, strapping, taping, modification of shoe gear, and aspiration. Conservative treatment discussed but has been exhausted. We discussed surgery. All risks and benefits were discussed including but not limited to: recurrence of the mass, damage to blood vessels and nerves, bleeding, infection, wound complications, need for further surgery, prolonged swelling of the extremity, prolonged pain, RSD/CRPS, DVT, and anesthetic complications. No guarantees were given. All questions fully answered. The patient verbalized understanding and agreed to proceed with surgery. Consent was obtained. Necessary labs and pre-op testing ordered. She has fracture boot. Has Willet, Zofran, Motrin in past. Will need oral abx x7-10d post op. Hx post op skin infection. PCP: Dr Mcgill granted med clearance. Operative findings:: Right foot soft tissue mass located on the dorsal lateral foot over the fifth metatarsal. Mass suspicious for lipoma measured approximately 6.7 x 4 cm. Right ankle lipoma noted overlying the sinus tarsi and distal fibula, measured approximately 7.1 x 4.2 cm. Both of these soft tissue masses were located through subcutaneous tissue and extended through the deep fascia overlying the extensor tendon. Did not extend to capsule or bone. No purulence, malodor or signs of infection noted. Operative note:: On this date and time, the patient was deemed an appropriate surgical candidate. With informed consent signed, the patient was taken to operating theater after a pre-op regional popliteal nerve block was given by anesthesia. IV Vanco. The patient was positioned supine. General anesthesia was induced. Tourniquet was applied to RIGHT ankle. The RIGHT lower extremity was prepped and draped in normal sterile fashion. RIGHT ANKLE EXCISION OF LIPOMA: The tourniquet was inflated at 250 mmHg. Attention was directed to the lateral ankle where a lazy S incision was mapped out extending proximal the distal fibula extending toward the base of the fifth metatarsal over the sinus tarsi. Dissection was carried through skin to subcutaneous tissue with care taken to maintain surgical hemostasis and safely retract neurovascular structures. Large amount of subcutaneous tissue noted. The mass extended through the deep fascia. The peroneal tendons shealth was not transected and tendons were not identified, safely retracted. The lipoma was excised and sent to pathology as a specimen. The wound was flushed with copious amounts normal sterile saline. RIGHT FOOT EXCISION OF SOFT TISSUE MASS/lipoma: A separate incision was made over the dorsal lateral 5th metatarsal. Dissection was carried down to the level of the subcutaneous tissue. There was a hard palpable lumpy mass of subcutaneous fatty tissue. The mass was removed/excised and sent to pathology as a specimen. The mass did penetrate through deep fascia over the extensor digitorum muscle belly but did not extend through the entire deep fascia to bone. The wound was flushed with copious amounts normal sterile saline. Deep subcutaneous tissue was reapproximated with 2-0 Vicryl in interrupted fash
--- NOTE | 2023-02-14 09:47 | EXP.ANES.II ---
[facility] Anesthesia Record Part II Anesthesia Record Part II Discharge Time: 09:18 Destination: Surgical Day Care (OP Surgery) PACU nurse assessment reviewed?: Yes Patient Condition:: Good Anesthesia Complications:: None Swallowing reflex intact?: Yes Cyanosis?: No Blood Pressure: 125/68 Pulse Rate: 74 Temperature: 97 F Mental Status: Alert & Oriented Pain level:: 0 Nausea and/or vomitting:: None Intake, IV Amount: 0
== END 2023-02-14 09:55 | disposition home or self-care (01) ==
PROVIDERS: PCP Family Medicine; Visit Provider Podiatrist
PROC: (CPT 28041; principal; 2023-02-14 07:30)
DX: D17.23 Benign lipomatous neoplasm of skin and subcutaneous tissue of right leg (principal); M79.671 Pain in right foot; Z79.899 Other long term (current) drug therapy; M79.89 Other specified soft tissue disorders
CPT/HCPCS: 28041; 27634; 15275; 96374; J2405; Q4211

== ENCOUNTER 2023-02-19 08:07 | Outpatient (CLI) | payer OTHER, SELFPAY | END 2023-02-19 08:23 | disposition home or self-care (01) | LOC: INF 08:07 | PROVIDERS: PCP Family Medicine; Visit Provider Podiatrist | DX: D17.20 Benign lipomatous neoplasm of skin and subcutaneous tissue of unspecified limb (principal); M79.89 Other specified soft tissue disorders; T81.49XA Infection following a procedure, other surgical site, initial encounter; Z48.01 Encounter for change or removal of surgical wound dressing | CPT/HCPCS: G0463 ==

== ENCOUNTER → 2023-02-26 09:00 | Outpatient (CLI) | payer OTHER, SELFPAY | PROVIDERS: Visit Provider Podiatrist | DX: M79.672 Pain in left foot (principal); Z98.890 Other specified postprocedural states | CPT/HCPCS: 87070; 87205 ==

== ENCOUNTER 2023-03-09 10:48 | Emergency (ER) | payer OTHER, SELFPAY ==
[2023-03-09 10:49] VITALS: BP 126/83; PULSE 87; RESP 18; TEMP 36.8; O2SAT 94; BMI 41.1
[2023-03-09 11:13] LABS: Microscopic, Urine URINE MICROSCOPIC (MICROSCOPIC)
--- NOTE | 2023-03-09 11:15 | EXP.UTC ---
Discharge Plan Disposition Patient Disposition: Home, Self-Care Condition: Good Prescriptions Prescriptions: New levofloxacin 500 mg tablet 500 mg PO DAILY Qty: 7 0RF phenazopyridine [Pyridium] 200 mg tablet 200 mg PO Q8H PRN (Reason: pain) Qty: 6 0RF No Action levothyroxine 112 mcg tablet 112 mcg PO DAILY 30 Days Qty: 30 pravastatin 40 mg tablet 40 mg PO DAILY 30 Days Qty: 30 cholecalciferol (vitamin D3) 1,000 unit capsule 2,000 unit PO ONCE gabapentin 300 mg capsule 300 mg PO TID PRN (Reason: nerve pain) 7 Days Qty: 21 2RF oxycodone 10 mg tablet 10 mg PO Q6H 7 Days Qty: 28 0RF doxycycline hyclate 100 mg tablet 100 mg PO BID 10 Days Qty: 20 0RF topiramate 50 MG tablet See Rx Instructions .Route .COMPLEX Rx Instructions: TAKE THREE TABLETS BY MOUTH EVERY DAY AT BEDTIME ibuprofen 800 mg tablet 800 mg PO BID PRN (Reason: Pain) Qty: 60 0RF ondansetron 4 mg tablet,disintegrating 4 mg PO Q8H PRN (Reason: nausea and vomiting) Qty: 20 0RF hydrocodone-acetaminophen 7.5-325 mg tablet 1 tab PO Q4H PRN (Reason: pain) Qty: 30 0RF Referrals Follow up/Referrals: Umang Gamino MD [Primary Care Provider] - See instructions Activity Restrictions/Add. Instructions Additional Instructions/Restrictions: Urine culture results should be back on Sunday afternoon Clinical Impressions Clinical Impression: UTI (urinary tract infection) Instructions Patient Instructions: DI for Urinary Tract Infection (UTI) Discharge ED Provider: Val Rao [facility] HPI General Stated complaint: possible uti Mode of Arrival: Ambulatory Source of Information: Patient Limitations: No Limitations Time Seen by Provider: 03/09/23 11:15 Description of Symptoms (Recalled from Triage Doc. by RN): Patient complains of burning with urination for 4 days. HEENT Symptoms (Recalled from RN notes): No Resp Symptoms (Recalled from RN notes): No Skin Symptoms (Recalled from RN notes): No MS Symptoms (Recalled from RN notes): No Functional Status (Recalled from RN notes): wnl History of Present Illness Provider Complaint: Dysuria, frequency X 4 days. No fever. AZO has helped a little. No nausea or vomiting. Onset (ago): day(s) (4) Treatments prior to arrival: other (AZO) Related Data Home Medications Medication Instructions Recorded Confirmed cholecalciferol (vitamin D3) 25 2,000 unit PO ONCE Supplement 09/28/17 03/06/23 mcg (1,000 unit) capsule levothyroxine 112 mcg tablet 112 mcg PO DAILY thyroid 30 days 03/11/18 03/06/23 ##30 pravastatin 40 mg tablet 40 mg PO DAILY Cholesterol 30 days 03/11/18 03/06/23 ##30 topiramate 50 mg tablet See Rx Instructions .Route 10/06/21 03/06/23 .COMPLEX MIGRAINES Previous Rx's Medication Instructions Recorded hydrocodone 7.5 mg-acetaminophen 1 tab PO Q4H PRN pain #30 tabs 02/13/23 325 mg tablet ibuprofen 800 mg tablet 800 mg PO BID PRN Pain #60 tabs 02/13/23 ondansetron 4 mg disintegrating 4 mg PO Q8H PRN nausea and 02/13/23 tablet vomiting #20 tabs doxycycline hyclate 100 mg tablet 100 mg PO BID 10 days #20 tabs 02/26/23 gabapentin 300 mg capsule 300 mg PO TID PRN nerve pain 7 02/26/23 days #21 caps oxycodone 10 mg tablet 10 mg PO Q6H severe pain 1 week 02/26/23 #28 tabs levofloxacin 500 mg tablet 500 mg PO DAILY #7 tabs 03/09/23 phenazopyridine 200 mg tablet 200 mg PO Q8H PRN pain 6 doses #6 03/09/23 (Pyridium) tabs Allergies Allergy/AdvReac Type Severity Reaction Status Date / Time naproxen [NAPROXEN] Allergy Mild HEART Verified 03/06/23 08:30 BEATING TOO FAST Worker's Comp Is this a Worker's Comp case?: No [facility] Disclaimer: The information contained in this section may have been updated after the patient was seen, as this information can be updated by other users. Medical History Acquired hammer toes of both feet Ac
[2023-03-09 11:20] LABS: Appearance,Urine TURBID (Clear); Bilirubin,Urine Negative (Negative); Blood, Urine 1+ (Negative); Color,Urine YELLOW (Yellow); Glucose,Urine (UA) Negative (Negative); Ketones,Urine Negative (Negative); Leukocyte Esterase,Urine 2+ (Negative); Nitrate,Urine POSITIVE (Negative); Protein,Urine 2+ (Negative); Specific Gravity, Urine 1.025 (1.005-1.030)
[2023-03-09 11:33] VITALS: BP 126/83; PULSE 87; RESP 18; TEMP 36.8; O2SAT 94
[2023-03-09 11:35] LABS: Bacteria,Urine 4+ /lpf; WBC,Urine TNTC #/hpf (0-3)
== END 2023-03-09 11:34 | disposition home or self-care (01) ==
PROVIDERS: Emergency Provider Physician Assistant; PCP Family Medicine
DX: N39.0 Urinary tract infection, site not specified (principal); E03.9 Hypothyroidism, unspecified; E78.5 Hyperlipidemia, unspecified
CPT/HCPCS: 81001; 87086; 87088; 87186; 99212; 99214; G0463

== ENCOUNTER → 2023-04-02 13:10 | Outpatient (CLI) | payer OTHER, SELFPAY | PROVIDERS: PCP Family Medicine; Visit Provider Nurse Practitioner Family | DX: T81.49XA Infection following a procedure, other surgical site, initial encounter (principal); B96.89 Other specified bacterial agents as the cause of diseases classified elsewhere; B37.9 Candidiasis, unspecified; B95.7 Other staphylococcus as the cause of diseases classified elsewhere | CPT/HCPCS: 87070; 87077; 87186; 87205 ==

== ENCOUNTER → 2023-04-03 08:38 | Outpatient (CLI) | payer OTHER, SELFPAY ==
--- NOTE | 2023-04-03 08:57 | XR_ITS ---
FINAL REPORT CLINICAL HISTORY: Foot sore COMPARISON: 12/31/2022 FINDINGS: RIGHT FOOT 3 views of the right foot were obtained. There is no acute fracture or dislocation. Visualized joint spaces are normally aligned. Soft tissues are unremarkable. A small accessory navicular is present. There is a small plantar calcaneal spur, unchanged. IMPRESSION: No acute bony abnormality. Reviewed, Interpreted and Dictated by Garett Salas MD Transcribed by Ariana Cardona Authenticated and [facility] [place] [place]
[2023-04-03 09:02] LABS: Basophils % 0.4 % (0.1-2.0); Eosinophils # 0.1 K/mm3 (0.0-0.4); Eosinophils % 2.3 % (0.1-12.0); Hematocrit 41.4 % (37.0-47.0); Hemoglobin 13.8 g/dL (12.2-16.2); Lymphocytes % 28.7 % (10-50); Mean Corpuscular HGB Conc 33.3 g/dL (31.8-35.4); Mean Corpuscular Hemoglobin 30.5 pg (27.0-31.2); Mean Corpuscular Volume 91.7 fl (81-99); Mean Platelet Volume 8.9 fl (7.4-10.4); Monocytes # 0.3 K/mm3 (0.1-1.0); Monocytes % 7.4 % (1.7-9.3); Neutrophils % 61.1 % (37.0-80.0); Platelet Count 212 K/mm3 (142-424); Red Blood Count 4.51 M/mm3 (4.20-5.40); Red Cell Distribution Width 13.1 % (11.5-17.5); White Blood Count 3.3 K/mm3 (4.8-10.8)
[2023-04-03 09:25] LABS: Erythrocyte Sedimentation Rate 21 mm/hr (0-30)
[2023-04-03 09:26] LABS: Chloride 112 mmol/L (98-107)
[2023-04-03 09:29] LABS: Alanine Aminotransferase 17 U/L (12-78); Albumin Level 4.2 g/dl (3.5-5.0); Albumin/Globulin Ratio 1.5 (1.1-1.8); Alkaline Phosphatase 106 U/L (38-126); Aspartate Amino Transferase 25 U/L (14-36); Bilirubin,Total 0.8 mg/dl (0.2-1.3); Blood Urea Nitrogen 18 mg/dl (7-17); Calcium 10.2 mg/dl (8.4-10.2); Carbon Dioxide 25 mmol/L (22.0-30.0); Estimated Glomerular Filt Rate 39 ml/min (>60); GFR (African American) 47 ML/MIN (>60); Globulin 2.8 g/dL (1.3-3.2); Glucose 100 mg/dl (74-100)
[2023-04-03 12:15] LABS: Sodium 146 mmol/L (136-145)
== END ==
PROVIDERS: PCP Family Medicine; Visit Provider Nurse Practitioner Family
DX: L02.91 Cutaneous abscess, unspecified (principal); T81.49XA Infection following a procedure, other surgical site, initial encounter; M79.671 Pain in right foot
CPT/HCPCS: 36415; 73630; 80053; 85025; 85651; 86140

== ENCOUNTER 2023-04-09 14:00 | Outpatient (RCR) | payer OTHER, SELFPAY ==
--- NOTE | 2023-03-29 13:38 | HMH.PTOPWND ---
Rehab Outpt Wound Evaluation Rehab OP Wound Evaluation Start: 03/29/23 13:28 Freq: Status: Active Protocol: Document 03/29/23 13:28 TOM (Rec: 03/29/23 13:38 PHORNE [id number]) E-signed By Surendra Trujillo, PT Subjective/History History History This is the initial PT eval for Kathy Krishnan, 52 yowf who presents with c/o R lateral foot wound x ~ 6 wks after surgery was performed. Unfotunately, her healing has been dealed for nknown reasons and she continues to need significant wound care. On 01/02 she had several large lipomas removed from her R foot, with this resulting wound. She reports continued drainage, pain, and tenderness from the R foot wound. Subjective Subjective Pt reports pain is 4/10 currently. It depends how much I'm up on it, though. 2/ 4 TTP in the lux-wound skin. Wound Eval Wound Right Lateral Foot Wound Type Incision Is This a Chronic Wound Yes Wound Length (cm) 7.7 Wound Width (cm) 5.7 Wound Depth (cm) 0.3 Wound Bed Appearance Yellow Percentage of Slough (%) 100 Wound Margins Description Well Defined Surrounding Tissue Appearance [place] Edema Type Pitting Edema Degree 1+ Query Text:1+ Trace, Barely Detectable, Rebound 15-30 seconds 2+ Moderate, Slight Indentation, Rebound 10-20 seconds 3+ Deep, Deeper Indentation, Rebound > 30 seconds 4+ Very Deep, Rebound > 60 seconds Drainage Description Serosanguineous Drainage Amount Large Drainage Odor No Odor Dressing Status Dry & Intact Wound Topical Solution/Irrigant Saline Irrigant Primary Dressing Silver Dressing Comment [facility] Wound Secondary Dressing Type Absorbant Pad,Gauze Roll/Wrap, Elastic Bandage Wound Debridement Method Sharps,Forceps,Gauze Wound Debridement Amount of Tissue Minimal Removed Wound Debridement Result Yellow Sloughing Remains Dressing Change Patient Tolerance Tolerated Well Wound Problems/Impairments Impairments Problems/Impairmments Palpation Tenderness,Impaired Strength,Impaired Endurance, Impaired Transfers,Impaired Gait Pattern,Impaired Walking, Impaired Standing,Impaired Shower/Bathing,Impaired Household Care,Impaired Stair Climbing,Impaired Incline Stepping,Impaired Stepping on Uneven Surface,Impaired Recreational Activities, Impaired Work Activities, Increased Edema,Lymphedema Present,Wound Care Needs, Subjective C/O Pain,Impaired Self Care/Self Management Prognosis Rehab Potential Good Clinical Impression Consistent with Diagnosis Yes Short Term Goals Number of Weeks 4 Decreased Palpation Tenderness Yes: 1/ R foot Decrease Edema Yes: no pitting edema Decrease Wound Area Yes: by 25% Decrease Yellow/White Slough % Yes: by 50% Decrease Subjective C/O Pain Yes: 10 Intermediate Goals Number of Weeks 6-8 Decreased Palpation Tenderness Yes: 0/4 R foot Improve Ability For Household Care Yes: without pain Decrease Wound Area Yes: by 75% Increase Red Granulation Tissue % Yes: by 100% Decrease Subjective C/O Pain Yes: 0 Patient to be Ind w/ Advanced HEP Yes Patient to be Ind w/ Home Wound Care/ Yes Dressing Changes Outpatient Therapy Plan of Care Treatment Plan May Include Therapeutic Exercise Including Home Yes Exercise Program Manual Therapy Techniques Yes Neuromuscular Re-education Yes Therapeutic Activities to Return to Yes Previous Functional/Work Level ADL/Self Care Education Yes Orthotics/Bracing/Splinting Yes Manual Lymphatic Drainage Yes Wound Care Yes Eval/Re-Eval Yes Frequency Times per week 1-2 Duration Number of Weeks 6-8 Addendums This patient is a candidate for social No or vocational rehab? Patient/Guardian verbally acknowledges Yes understanding of treatment program and consents to further treatment? Patient/Guardian verbally acknowledges Yes understanding of diagnosis, prognosis and goals for treatment? G -code Required No Eval Complexity PT Charges 67121 - High Complexity PHYSICIAN CERTIFICATION: I certify the specified therapy services for Kathy Krishnan are required, authorized, and reviewed every 30 days.
== END 2023-04-09 15:30 | disposition home or self-care (01) ==
LOC: PT 14:00
PROVIDERS: PCP Family Medicine; Visit Provider Podiatrist
DX: L97.519 Non-pressure chronic ulcer of other part of right foot with unspecified severity (principal); T81.49XA Infection following a procedure, other surgical site, initial encounter; Z98.890 Other specified postprocedural states
CPT/HCPCS: 97163; 97597; 97598

== ENCOUNTER → 2023-04-24 07:09 | Outpatient (CLI) | payer OTHER, SELFPAY ==
[2023-04-24 07:30] LABS: Basophils % 1.1 % (0.1-2.0); Eosinophils # 0.1 K/mm3 (0.0-0.4); Eosinophils % 2.2 % (0.1-12.0); Hemoglobin 14.3 g/dL (12.2-16.2); Lymphocytes # 1.5 K/mm3 (0.7-4.5); Lymphocytes % 38.8 % (10-50); Mean Corpuscular HGB Conc 31.7 g/dL (31.8-35.4); Mean Corpuscular Hemoglobin 29.6 pg (27.0-31.2); Mean Corpuscular Volume 93.3 fl (81-99); Mean Platelet Volume 9.9 fl (7.4-10.4); Monocytes # 0.3 K/mm3 (0.1-1.0); Monocytes % 7.7 % (1.7-9.3); Neutrophils # 1.9 K/mm3 (1.8-7.8); Neutrophils % 50.3 % (37.0-80.0); Platelet Count 187 K/mm3 (142-424); Red Blood Count 4.82 M/mm3 (4.20-5.40); Red Cell Distribution Width 13.4 % (11.5-17.5); White Blood Count 3.8 K/mm3 (4.8-10.8)
[2023-04-24 08:39] LABS: Erythrocyte Sedimentation Rate 16 mm/hr (0-30)
[2023-04-24 09:31] LABS: Alanine Aminotransferase 11 U/L (12-78); Albumin Level 3.9 g/dl (3.5-5.0); Albumin/Globulin Ratio 1.3 (1.1-1.8); Alkaline Phosphatase 130 U/L (38-126); Anion Gap 15.4 mEq/L (5-15); Aspartate Amino Transferase 22 U/L (14-36); Bilirubin,Total 0.5 mg/dl (0.2-1.3); Blood Urea Nitrogen 27 mg/dl (7-17); Calcium 9.4 mg/dl (8.4-10.2); Carbon Dioxide 23 mmol/L (22.0-30.0); Chloride 110 mmol/L (98-107); Estimated Glomerular Filt Rate 47 ml/min (>60); GFR (African American) 56 ML/MIN (>60); Globulin 2.9 g/dL (1.3-3.2); Glucose 92 mg/dl (74-100); Potassium 4.4 mmoL/L (3.5-5.1); Sodium 144 mmol/L (136-145); Total Protein,Serum 6.8 g/dl (6.3-8.2)
[2023-04-24 09:36] LABS: C-Reactive Protein 1.2 mg/L (0-4)
== END ==
PROVIDERS: PCP Family Medicine; Visit Provider Podiatrist
DX: R60.9 Edema, unspecified (principal); T81.49XA Infection following a procedure, other surgical site, initial encounter; G89.18 Other acute postprocedural pain
CPT/HCPCS: 36415; 80053; 85025; 85651; 86140

== ENCOUNTER → 2023-06-05 07:07 | Outpatient (CLI) | payer OTHER, SELFPAY ==
[2023-06-05 08:26] LABS: Chloride 111 mmol/L (98-107); Potassium 4.2 mmoL/L (3.5-5.1); Sodium 142 mmol/L (136-145)
[2023-06-05 08:29] LABS: Anion Gap 11.2 mEq/L (5-15); Blood Urea Nitrogen 21 mg/dl (7-17); Calcium 9.1 mg/dl (8.4-10.2); Carbon Dioxide 24 mmol/L (22.0-30.0); Estimated Glomerular Filt Rate 47 ml/min (>60); GFR (African American) 56 ML/MIN (>60); Glucose 92 mg/dl (74-100); Phosphorous 4.2 mg/dl (2.5-4.5)
[2023-06-05 09:28] LABS: Creatinine,Urine Random 96 mg/dL (Not Estab.)
[2023-06-05 09:33] LABS: Microalbumin < 6.000 mg/L (0-16.7)
== END ==
PROVIDERS: PCP Family Medicine; Visit Provider Family Medicine
DX: N18.31 Chronic kidney disease, stage 3a (principal)
CPT/HCPCS: 36415; 80048; 82043; 82570; 84100

== ENCOUNTER 2023-08-23 13:15 | Emergency (ER) | payer OTHER, SELFPAY ==
[2023-08-23 13:30] VITALS: BP 146/89; PULSE 98; RESP 20; TEMP 36.7; O2SAT 95; BMI 41.1
--- NOTE | 2023-08-23 13:51 | EXP.UTC ---
Discharge Plan Disposition Patient Disposition: Home, Self-Care Condition: Good Prescriptions Prescriptions: New azithromycin [Zithromax Z-Travis] 250 mg tablet See Rx Instructions .ROUTE .COMPLEX 5 Days Qty: 6 0RF Rx Instructions: For 250 mg dose pack: take 500 mg today (day 1), then 250 mg for 4 days (days 2-5) methylprednisolone [Medrol (Travis)] 4 mg tablets,dose pack See Rx Instructions .Route .COMPLEX 6 Days Qty: 21 0RF Rx Instructions: taper pack; methocarbamol 500 mg tablet 500 mg PO TID PRN (Reason: muscle spasm) Qty: 12 0RF No Action levothyroxine 112 mcg tablet 112 mcg PO DAILY 30 Days Qty: 30 pravastatin 40 mg tablet 40 mg PO DAILY 30 Days Qty: 30 cholecalciferol (vitamin D3) 1,000 unit capsule 2,000 unit PO ONCE topiramate 50 MG tablet See Rx Instructions .Route .COMPLEX Rx Instructions: TAKE THREE TABLETS BY MOUTH EVERY DAY AT BEDTIME Referrals Follow up/Referrals: Umang Gamino MD [Primary Care Provider] - See instructions Activity Restrictions/Add. Instructions Additional Instructions/Restrictions: Take medication as prescribed Follow up with your Family Doctor if no improvement or any worsening of symptoms Straight to ER if any life threatening symptoms Clinical Impressions Clinical Impression: Sinusitis Qualifiers: Sinusitis location: unspecified location Chronicity: unspecified Qualified Code(s): J32.9 - Chronic sinusitis, unspecified Instructions Patient Instructions: DI for Sinusitis, Methocarbamol, DI for Muscle Spasm Discharge ED Provider: Sarika Albert [facility] General Stated complaint: back pain and soa Mode of Arrival: Ambulatory Source of Information: Patient Limitations: No Limitations Time Seen by Provider: 08/23/23 13:51 Description of Symptoms (Recalled from Triage Doc. by RN): PATIENT C/O LOWER BACK PAIN THAT RADIATES UP INTO NECK AND SOMETIMES CAUSES SOA THAT STARTED 2 DAYS AGO HEENT Symptoms (Recalled from RN notes): No Resp Symptoms (Recalled from RN notes): No Skin Symptoms (Recalled from RN notes): No MS Symptoms (Recalled from RN notes): Yes Functional Status (Recalled from RN notes): WNL History of Present Illness Provider Complaint: Patient states that she has been having sinus congestion and drainage in the back of her throat States that she has had a little cough not sure if she may have pulled something but she has been having pain across her mid back that feels like it spasms up at times when she coughs or moves certain ways States that she hasnt done anything to hurt it that she is aware of Related Data Home Medications Medication Instructions Recorded Confirmed cholecalciferol (vitamin D3) 25 2,000 unit PO ONCE Supplement 09/28/17 08/23/23 mcg (1,000 unit) capsule levothyroxine 112 mcg tablet 112 mcg PO DAILY thyroid 30 days 03/11/18 08/23/23 ##30 pravastatin 40 mg tablet 40 mg PO DAILY Cholesterol 30 days 03/11/18 08/23/23 ##30 topiramate 50 mg tablet See Rx Instructions .Route 10/06/21 08/23/23 .COMPLEX MIGRAINES Previous Rx's Medication Instructions Recorded azithromycin 250 mg tablet See Rx Instructions PO .COMPLEX 5 08/23/23 (Zithromax Z-Travis) days #6 tabs methocarbamol 500 mg tablet 500 mg PO TID PRN muscle spasm #12 08/23/23 tabs methylprednisolone 4 mg tablets in See Rx Instructions .Route 08/23/23 a dose pack (Medrol (Travis)) .COMPLEX 6 days #21 tabs Allergies Allergy/AdvReac Type Severity Reaction Status Date / Time naproxen [NAPROXEN] Allergy Mild HEART Verified 06/06/23 08:05 BEATING TOO FAST Worker's Comp Is this a Worker's Comp case?: No [facility] Disclaimer: The information contained in this section may have been updated after the patient was seen, as this information can be updated by other users. Medical History Acquired hammer toes of both feet Acute gastroenteritis Cervical cancer Contusion of hip, left Edema of left foot Foot pain Foot pain Gastroenteritis Hyperlipidemia Hypothyroid Knee pain Knee sprain Laceration Left shoulder pain Lumbar back sprain Mass of soft tissue of foot Migraine Thyroid disease Urinary tract infection UTI (urinary tract infection) Surgical History H/O shoulder surgery L History of appendectomy History of cholecystectomy History of hysterectomy History of knee surgery x2 L x1 R History of tubal ligation Status post foot surgery Family History Other Family history of diabetes mellitus type II Family history of hypertension Family history of myocardial infarction Social History Smoking Status: Never smoker alcohol intake: never counseling provided: none substance use type: denies use current occupational status: employed Travel in the last 8 weeks: None household members: spouse housing: house current occupation: [employer] caffeine: Yes ROS Obtained: Yes All systems reviewed & no additional complaints except as documented and Yes Systems reviewed as appropriate & no additional complaints except as documented Constitutional Constitutional: Reports system reviewed and no additional complaints, except as documented and Reports as per HPI ENT Ears, Nose, Mouth, and Throat: Reports system reviewed and no additional complaints, except as documented, Reports as per HPI, Reports sinus pain and Reports sinus pressure Cardiovascular Cardiovascular: Reports system reviewed and no additional complaints, except as documented and Reports as per HPI Respiratory Respiratory: Reports system reviewed and no additional complaints, except as documented, Reports as per HPI and Reports cough Gastrointestinal Gastrointestingal: Reports system reviewed and no additional complaints, except as documented and as per HPI Musculoskeletal Musculoskeletal: Reports system reviewed and no additional complaints, except as documented, Reports as per HPI and Reports back pain (mid back pain/spasms with cough and certain movements) Physical Exam General General appearance: alert and in no apparent distress ENT ENT exam: Present mucous membranes moist Expanded ENT Exam Nose exam: Present sinus tenderness Throat exam: Present other (Pharyngeal erythema noted with PND) Respiratory Respiratory exam: Present normal lung sounds bilaterally; Absent respiratory distress or wheezes Cardiovascular Cardiovascular exam: Present regular rate, normal rhythm and normal heart sounds Neurological Exam Neurological exam: Present alert, oriented X3 and normal gait Medical Decision Making Hardeep Inquiry Pt receiving controlled substance: No Hardeep was queried for this patient: No Vital Signs: 08/23/23 13:30 Temperature 98.0 F Temperature Source Oral Pulse Rate [Left Brachial] 98 H Respiratory Rate 20 Blood Pressure [Left Arm] 146/89 H Blood Pressure Mean [Left Arm] 108 Blood Pressure Source [Left Arm] Automatic Cuff Blood Pressure Position [Left Arm] Sitting 02 Sat by Pulse Oximetry 95 Oxygen Delivery Method Room Air Medical Decision Narrative: Discussed CXR declined at this time
[2023-08-23 13:56] VITALS: BP 146/89; PULSE 98; RESP 20; TEMP 36.7; O2SAT 95
== END 2023-08-23 14:08 | disposition home or self-care (01) ==
PROVIDERS: Emergency Provider Nurse Practitioner; PCP Family Medicine
DX: J32.9 Chronic sinusitis, unspecified (principal); M54.50 Low back pain, unspecified; M54.2 Cervicalgia; R06.02 Shortness of breath; E78.5 Hyperlipidemia, unspecified; E03.9 Hypothyroidism, unspecified
CPT/HCPCS: 99212; 99214; G0463

== ENCOUNTER 2023-09-04 06:51 | Outpatient (CLI) | payer OTHER, SELFPAY ==
[2023-09-04 08:42] LABS: Chloride 110 mmol/L (98-107)
[2023-09-04 08:43] LABS: Potassium 4.2 mmoL/L (3.5-5.1); Sodium 143 mmol/L (136-145)
[2023-09-04 08:45] LABS: Alanine Aminotransferase 13 U/L (12-78); Alkaline Phosphatase 94 U/L (38-126); Anion Gap 11.2 mEq/L (5-15); Aspartate Amino Transferase 27 U/L (14-36); Bilirubin,Total 0.7 mg/dl (0.2-1.3); Blood Urea Nitrogen 15 mg/dl (7-17); Carbon Dioxide 26 mmol/L (22.0-30.0); Estimated Glomerular Filt Rate 43 ml/min (>60); GFR (African American) 51 ML/MIN (>60)
[2023-09-04 08:46] LABS: Albumin/Globulin Ratio 1.4 (1.1-1.8); Calcium 9.1 mg/dl (8.4-10.2); Chol/HDL Ratio 4.5 (1-3.5); Cholesterol 197 mg/dl (140-200); Globulin 2.9 g/dL (1.3-3.2); Glucose 100 mg/dl (74-100); HDL Cholesterol 44 mg/dl (40-60); Phosphorous 4.4 mg/dl (2.5-4.5); Total Protein,Serum 6.9 g/dl (6.3-8.2); Triglycerides 113 mg/dl (30-150); VLDL Cholesterol 23 mg/dL (0-40)
[2023-09-04 09:03] LABS: 25-OH Vitamin D, Total 51.8 ng/mL (30-100)
[2023-09-04 09:04] LABS: Free T4 (Free Thyroxine) 1.23 ng/dl (0.78-2.19)
[2023-09-04 09:06] LABS: Direct LDL Cholesterol 116.54 mg/dL (100-129)
[2023-09-04 09:19] LABS: Thyroid Stimulating Hormone 5.84 uIU/mL (0.465-4.68)
== END 2023-09-04 23:59 ==
LOC: LAB 06:52
PROVIDERS: PCP Family Medicine; Visit Provider Family Medicine
DX: E03.9 Hypothyroidism, unspecified (principal); E78.5 Hyperlipidemia, unspecified; E55.9 Vitamin D deficiency, unspecified; N18.31 Chronic kidney disease, stage 3a
CPT/HCPCS: 36415; 80053; 80061; 82306; 84100; 84439; 84443

== ENCOUNTER 2023-09-14 07:49 | Outpatient (CLI) | payer OTHER, SELFPAY ==
--- NOTE | 2023-09-14 07:51 | MM_ITS ---
PROCEDURE INFORMATION: Exam: MG Bilateral Screening 3D Mammography Exam date and time: 09/14/2023 7:54 AM Age: 53 years old Clinical indication: Screening. Personal history of cervical cancer. No family history of breast cancer. TECHNIQUE: Imaging protocol: Bilateral Screening tomosynthesis and 2D mammography including computer-aided detection (CAD) when performed. COMPARISON: No relevant prior studies available.If prior mammograms are provided, I am happy to add an addendum. FINDINGS: MAMMOGRAPHY: Breast composition: There are scattered areas of fibroglandular density. Mass: Oval 0.4 cm mass in the right breast at 12 o'clock anterior to middle 3rd, 4 cm from the nipple, CC frame 40 and MLO frame 54. Architectural distortion: None. Calcifications: No suspicious calcifications. Asymmetric density: Questionable patchy 1 cm asymmetries in the retroareolar regions, more likely residual asymmetric glandular tissue. Skin thickening: None. Axillary adenopathy: None. IMPRESSION: Patient will be recalled for bilateral diagnostic mammography with spot compression in both retroareolar CC and MLO views as well as full field laterals (for questionable retroareolar asymmetries) and bilateral sonography for further evaluation of questionable retroareolar asymmetries and mass in the right breast at 12 o'clock. ASSESSMENT: BI-RADS Category 0: Incomplete- Need Additional Imaging Evaluation and/or Prior Mammograms for Comparison
== END 2023-09-14 23:59 ==
LOC: RAD 07:49
PROVIDERS: PCP Family Medicine; Visit Provider Family Medicine
DX: Z12.31 Encounter for screening mammogram for malignant neoplasm of breast (principal)
CPT/HCPCS: 77063; 77067

== ENCOUNTER 2023-10-02 13:50 | Outpatient (CLI) | payer OTHER, SELFPAY ==
--- NOTE | 2023-10-02 13:56 | US_ITS ---
PROCEDURE INFORMATION: Exam: US Right Breast, Complete US Left Breast, Complete MG Bilateral Diagnostic Breast Tomosynthesis Exam date and time: 10/02/2023 1:48 PM Age: 53 years old Clinical indication: Patient recalled on the basis of a screening mammogram for further evaluation; Bilateral breasts; retroareolar asymmetries and right breast mass TECHNIQUE: Imaging protocol: Complete ultrasound of all four quadrants of the right breast and the retroareolar regions, including ultrasound of the axilla when performed. Complete ultrasound of all four quadrants of the left breast and the retroareolar regions, including ultrasound of the axilla when performed. Bilateral Diagnostic tomosynthesis and 2D mammography including computer-aided detection (CAD) when performed. Unilateral or bilateral exam. COMPARISON: MG MM DIG SCREENING MAMM BI W/CAD 09/14/2023 7:54 AM FINDINGS: MAMMOGRAPHY: Digital diagnostic spot compression views of the right upper breast demonstrate a persistent 0.4 cm mass better seen in the MLO projection. Digital diagnostic spot compression views of both retroareolar regions demonstrate normal overlapping fibroglandular structures without discrete mass lesion or asymmetry seen. ULTRASOUND: Sonographic images of both breasts including the retroareolar regions, all 4 quadrants and the axilla do not demonstrate any solid masses. Minimal subcentimeter cystic change is present in the right 11 o'clock axis 4 cm from the nipple measuring 0.4 cm in greatest dimension and most closely corresponding to the mass on mammography. Cursors were placed over an incidental benign calcification in the right 6 o'clock axis. A no retroareolar masses are seen. No architectural distortion or acoustical shadowing. No skin thickening or axillary adenopathy. IMPRESSION: No mammographic or sonographic evidence of malignancy. Mass on screening mammography in the right breast corresponds to a benign cyst on sonography.Annual bilateral mammographic screening is recommended unless otherwise clinically indicated. ASSESSMENT: BI-RADS Category 2: Benign
== END 2023-10-02 23:59 ==
LOC: RAD 13:51
PROVIDERS: PCP Family Medicine; Visit Provider Family Medicine
DX: R92.8 Other abnormal and inconclusive findings on diagnostic imaging of breast (principal)
CPT/HCPCS: 76641; 77062; 77066; G0279

== ENCOUNTER 2023-12-19 07:04 | Outpatient (CLI) | payer OTHER, SELFPAY ==
[2023-12-19 08:20] LABS: Albumin Level 4.5 g/dl (3.5-5.0); Anion Gap 14.4 mEq/L (5-15); Blood Urea Nitrogen 18 mg/dl (7-17); Calcium 9.9 mg/dl (8.4-10.2); Carbon Dioxide 26 mmol/L (22.0-30.0); Chloride 108 mmol/L (98-107); Estimated Glomerular Filt Rate 43 ml/min (>60); GFR (African American) 51 ML/MIN (>60); Glucose 96 mg/dl (74-100); Potassium 4.4 mmoL/L (3.5-5.1); Sodium 144 mmol/L (136-145)
[2023-12-19 08:32] LABS: Intact Parathyroid Hormone 63.9 pg/mL (7.5-53.5)
[2023-12-19 08:36] LABS: Free T4 (Free Thyroxine) 1.09 ng/dl (0.78-2.19)
[2023-12-19 08:51] LABS: Thyroid Stimulating Hormone 3.13 uIU/mL (0.465-4.68)
== END 2023-12-19 23:59 | disposition home or self-care (01) ==
LOC: LAB 07:06
PROVIDERS: PCP Family Medicine; Visit Provider Family Medicine
DX: N18.31 Chronic kidney disease, stage 3a (principal); E03.9 Hypothyroidism, unspecified
CPT/HCPCS: 36415; 80048; 82040; 83970; 84439; 84443

== ENCOUNTER 2024-02-21 07:59 | Emergency (ER) | payer OTHER, SELFPAY ==
[2024-02-21 08:15] VITALS: BP 147/82; PULSE 81; RESP 18; TEMP 37.1; O2SAT 96; BMI 42.0
[2024-02-21 08:39] LABS: UTC Strep Screen (Rapid) Negative (Negative)
--- NOTE | 2024-02-21 08:40 | EXP.UTC ---
Discharge Plan Disposition Patient Disposition: Home, Self-Care Condition: Good Prescriptions Prescriptions: New azithromycin [Zithromax Z-Travis] 250 mg tablet See Rx Instructions .ROUTE .COMPLEX 5 Days Qty: 6 0RF Rx Instructions: For 250 mg dose pack: take 500 mg today (day 1), then 250 mg for 4 days (days 2-5) benzonatate 100 mg capsule 100 mg PO TID PRN (Reason: cough) Qty: 30 0RF methylprednisolone [Medrol (Travis)] 4 mg tablets,dose pack See Rx Instructions .Route .COMPLEX 6 Days Qty: 21 0RF Rx Instructions: taper pack; No Action losartan 50 mg tablet 50 mg PO DAILY Patient Comments: TAKE ONE TABLET BY MOUTH EVERY DAY pravastatin 40 mg tablet 40 mg PO DAILY Patient Comments: TAKE ONE TABLET BY MOUTH EVERY DAY AT BEDTIME levothyroxine 125 mcg tablet 125 mcg PO DAILY Patient Comments: TAKE ONE TABLET BY MOUTH EVERY DAY topiramate 50 mg tablet 50 mg PO DAILY Patient Comments: TAKE THREE TABLETS BY MOUTH EVERY DAY dapagliflozin propanediol [Farxiga] 10 mg tablet 10 mg PO DAILY Patient Comments: TAKE ONE TABLET BY MOUTH EVERY DAY Kerendia 10 mg tablet 10 mg PO DAILY Patient Comments: TAKE ONE TABLET BY MOUTH EVERY DAY Referrals Follow up/Referrals: Umang Gamino MD [Primary Care Provider] - See instructions Activity Restrictions/Add. Instructions Additional Instructions/Restrictions: *Monitor Temp, Over the counter Motrin or Tylenol as directed/as needed Tylenol every 4 hours and Motrin every 6 hours (as long as your family doctor has told you that you can take it) for fever or pain. and straight to ER if unable to lower temp less than 101.0 after medication given *Warm salt water gargles may help to soothe the throat *Throat Lozenges? *Warm fluids like tea with honey may help to soothe the throat? *Sleep elevated *Humidifier/Vaporizer Take medication as prescribed Your throat swab was sent for culture. Those results are typically sent to your primary care. Be sure to follow up in 2-3 days with your family doctor/primary care physician if no improvement so they can review those result and treat if necessary. If you don?t have a primary care doctor, I recommend you get one but in the mean time, you will have to return to a walk in clinic Follow up IMMEDIATELY for new or worsening symptoms or no Noticeable improvement over the next 48-72 hours. 911 for difficulty breathing or swallowing You were tested for today for COVID19 your test result should be back in the next 24hours, you may check your results on the [facility] my Health Portal Clinical Impressions Clinical Impression: Sinusitis Instructions Patient Instructions: DI for Sinusitis, Sinusitis, Sore Throat Discharge ED Provider: Sarika Albert [facility] [place] General Stated complaint: bodyaches, cough, headache, fever Mode of Arrival: Ambulatory Source of Information: Patient Limitations: No Limitations Time Seen by Provider: 02/21/24 08:40 Description of Symptoms (Recalled from Triage Doc. by RN): PATIENT C/O CONGESTION, COUGH, FEVER, SORE THROAT, DIARRHEA, DIZZINESS AND HEADACHE X 3 DAYS HEENT Symptoms (Recalled from RN notes): Yes Resp Symptoms (Recalled from RN notes): Yes Skin Symptoms (Recalled from RN notes): No MS Symptoms (Recalled from RN notes): No Functional Status (Recalled from RN notes): WNL History of Present Illness Provider Complaint: Patient states that she hasnt been feeling well for several days States that she has been having sore throat, headache, chills, fever, and had some dizziness a couple days ago States today she wasnt feeling any better so she came in to get checked worried she may have strep or something Related Data Home Medications Medication Instructions Recorded Confirmed dapagliflozin propanediol 10 mg 10 mg PO DAILY 02/21/24 02/21/24 tablet (Farxiga) finerenone 10 mg tablet (Kerendia) 10 mg PO DAILY 02/21/24 02/21/24 levothyroxine 125 mcg tablet 125 mcg PO DAILY 02/21/24 02/21/24 losartan 50 mg tablet 50 mg PO DAILY 02/21/24 02/21/24 pravastatin 40 mg tablet 40 mg PO DAILY 02/21/24 02/21/24 topiramate 50 mg tablet 50 mg PO DAILY 02/21/24 02/21/24 Previous Rx's Medication Instructions Recorded azithromycin 250 mg tablet See Rx Instructions PO .COMPLEX 5 02/21/24 (Zithromax Z-Travis) days #6 tabs benzonatate 100 mg capsule 100 mg PO TID PRN cough #30 caps 02/21/24 methylprednisolone 4 mg tablets in See Rx Instructions .Route 02/21/24 a dose pack (Medrol (Travis)) .COMPLEX 6 days #21 tabs Allergies Allergy/AdvReac Type Severity Reaction Status Date / Time naproxen [NAPROXEN] Allergy Mild HEART Verified 06/06/23 08:05 BEATING TOO FAST Worker's Comp Is this a Worker's Comp case?: No [facility] Disclaimer: The information contained in this section may have been updated after the patient was seen, as this information can be updated by other users. Medical History Acquired hammer toes of both feet Acute gastroenteritis Cervical cancer Contusion of hip, left Edema of left foot Foot pain Foot pain Gastroenteritis Hyperlipidemia Hypothyroid Knee pain Knee sprain Laceration Left shoulder pain Lumbar back sprain Mass of soft tissue of foot Migraine Thyroid disease Urinary tract infection UTI (urinary tract infection) Surgical History H/O shoulder surgery L History of appendectomy History of cholecystectomy History of hysterectomy History of knee surgery x2 L x1 R History of tubal ligation Status post foot surgery Family History Other Family history of diabetes mellitus type II Family history of hypertension Family history of myocardial infarction Social History Smoking Status: Never smoker alcohol intake: never counseling provided: none substance use type: denies use current occupational status: employed Travel in the last 8 weeks: None household members: spouse housing: house current occupation: [employer] caffeine: Yes ROS Obtained: Yes All systems reviewed & no additional complaints except as documented and Yes Systems reviewed as appropriate & no additional complaints except as documented Constitutional Constitutional: Reports system reviewed and no additional complaints, except as documented, Reports as per HPI, Reports body ache, Reports chills and Reports headache(s) ENT Ears, Nose, Mouth, and Throat: Reports system reviewed and no additional complaints, except as documented, Reports as per HPI, Reports otalgia, Reports headache(s), Reports sinus pain, Reports sinus pressure and Reports sore throat Cardiovascular Cardiovascular: Reports system reviewed and no additional complaints, except as documented and Reports as per HPI Respiratory Respiratory: Reports system reviewed and no additional complaints, except as documented and Reports as per HPI Gastrointestinal Gastrointestingal: Reports system reviewed and no additional complaints, except as documented and as per HPI Neurologic Neurologic: Reports headache(s) Physical Exam General General appearance: alert and in no apparent distress ENT ENT exam: Present mucous membranes moist Expanded ENT Exam Nose exam: Present sinus tenderness Throat exam: Present tonsillar erythema Respiratory Respiratory exam: Present normal lung sounds bilaterally; Absent respiratory distress or wheezes Cardiovascular Cardiovascular exam: Present regular rate, normal rhythm and normal heart sounds Neurological Exam Neurological exam: Present alert, oriented X3 and normal gait Medical Decision Making Hardeep Inquiry Pt receiving controlled substance: No Hardeep was queried for this patient: No Vital Signs: 02/21/24 08:15 Temperature 98.8 F Temperature Source Oral Pulse Rate [Left Brachial] 81 Respiratory Rate 18 Blood Pressure [Left Arm] 147/82 H Blood Pressure Mean [Left Arm] 103 Blood Pressure Source [Left Arm] Automatic Cuff Blood Pressure Position [Left Arm] Sitting 02 Sat by Pulse Oximetry 96 Oxygen Delivery Method Room Air Lab Data Lab results reviewed: Yes I reviewed the patient's lab results. Lab Results 02/21/24 08:36: Strep Scn Rapid Clinic Negative Orders (Tests/Meds): ORDERS Category Date Time Status Strep Screen Confirmation Stat Micro 02/21/24 08:36 Received
[2024-02-21 09:08] LABS: Influenza A, PCR Not Detected (NotDetected); Influenza B, PCR Not Detected (NotDetected)
[2024-02-21 09:11] VITALS: BP 147/82; PULSE 81; RESP 18; TEMP 37.1; O2SAT 96
[2024-02-21 09:37] LABS: Coronavirus 19, PCR Detected (NotDetected)
== END 2024-02-21 09:16 | disposition home or self-care (01) ==
PROVIDERS: Emergency Provider Nurse Practitioner; PCP Family Medicine
DX: U07.1 COVID-19 (principal); J01.90 Acute sinusitis, unspecified; R50.9 Fever, unspecified; R51.9 Headache, unspecified; R07.0 Pain in throat
CPT/HCPCS: 87636; 87880; 99212; 99214; G0463

== ENCOUNTER 2024-03-11 08:25 | Emergency (ER) | payer OTHER, SELFPAY ==
[2024-03-11 08:30] VITALS: BP 133/69; PULSE 77; RESP 20; TEMP 36.4; O2SAT 98; BMI 41.1
--- NOTE | 2024-03-11 08:38 | XR_ITS ---
FINAL REPORT CLINICAL HISTORY: pain in right ribs with cough/deep breath COMPARISON: 02/06/2023 FINDINGS: A single view of the chest with 3 views of the ribs were obtained. There is no acute cardiopulmonary process. No pneumothorax is identified. No displaced rib fracture identified. IMPRESSION: No acute process. Reviewed, Interpreted and Dictated by Garett Salas MD Transcribed by Crystal Cortes Authenticated and [facility]
--- NOTE | 2024-03-11 08:59 | EXP.UTC ---
Discharge Plan Disposition Patient Disposition: Home, Self-Care Condition: Good Prescriptions Prescriptions: New valacyclovir 1 gram tablet 1,000 mg PO Q8H 7 Days Qty: 21 0RF lidocaine 4 % adhesive patch,medicated 1 patch topical DAILY PRN (Reason: pain) Qty: 10 0RF Rx Instructions: apply to area leave on for 12 hours then remove for 12 hours No Action losartan 50 mg tablet 50 mg PO DAILY Patient Comments: TAKE ONE TABLET BY MOUTH EVERY DAY pravastatin 40 mg tablet 40 mg PO DAILY Patient Comments: TAKE ONE TABLET BY MOUTH EVERY DAY AT BEDTIME levothyroxine 125 mcg tablet 125 mcg PO DAILY Patient Comments: TAKE ONE TABLET BY MOUTH EVERY DAY topiramate 50 mg tablet 50 mg PO DAILY Patient Comments: TAKE THREE TABLETS BY MOUTH EVERY DAY dapagliflozin propanediol [Farxiga] 10 mg tablet 10 mg PO DAILY Patient Comments: TAKE ONE TABLET BY MOUTH EVERY DAY Kerendia 10 mg tablet 10 mg PO DAILY Patient Comments: TAKE ONE TABLET BY MOUTH EVERY DAY Referrals Follow up/Referrals: Umang Gamino MD [Primary Care Provider] - See instructions Activity Restrictions/Add. Instructions Additional Instructions/Restrictions: Take medication as prescribed Over the counter Motrin and/or Tylenol for pain Over the counter Calamine lotion may help Follow up with your Family Doctor if no improvement or any worsening of symptoms Clinical Impressions Clinical Impression: Shingles Qualifiers: Herpes zoster complications: without complications Qualified Code(s): B02.9 - Zoster without complications Instructions Patient Instructions: Shingles, DI for Shingles Print Language Print Language: Azeri Discharge ED Provider: Sarika Albert [facility] General Stated complaint: soa, side pain Mode of Arrival: Ambulatory Source of Information: Patient Limitations: No Limitations Time Seen by Provider: 03/11/24 08:59 Description of Symptoms (Recalled from Triage Doc. by RN): PATIENT C/O SOA AND PAIN IN RIGHT RIB AREA X 2 DAYS HEENT Symptoms (Recalled from RN notes): No Resp Symptoms (Recalled from RN notes): Yes Skin Symptoms (Recalled from RN notes): No MS Symptoms (Recalled from RN notes): Yes Functional Status (Recalled from RN notes): WNL History of Present Illness Provider Complaint: Patient states that she had COVID a few weeks ago and for the last couple of days she has been having pain in her right rib area, pain worse with laying down on it, taking a deep breath or coughing States that it feels like her ribs are breaking when she does it and when the pain hits takes her breath and makes her feel a little SOA So today when it wasnt any better she came in to get checked Related Data Home Medications ?Medication ?Instructions ?Recorded ?Confirmed dapagliflozin propanediol 10 mg 10 mg PO DAILY 02/21/24 03/11/24 tablet (Farxiga) finerenone 10 mg tablet (Kerendia) 10 mg PO DAILY 02/21/24 03/11/24 levothyroxine 125 mcg tablet 125 mcg PO DAILY 02/21/24 03/11/24 losartan 50 mg tablet 50 mg PO DAILY 02/21/24 03/11/24 pravastatin 40 mg tablet 40 mg PO DAILY 02/21/24 03/11/24 topiramate 50 mg tablet 50 mg PO DAILY 02/21/24 03/11/24 Previous Rx's ?Medication ?Instructions ?Recorded lidocaine 4 % topical patch 1 patch topical DAILY PRN pain #10 03/11/24 ea valacyclovir 1 gram tablet 1,000 mg PO Q8H 7 days #21 tabs 03/11/24 Allergies Allergy/AdvReac Type Severity Reaction Status Date / Time naproxen [NAPROXEN] Allergy Mild HEART Verified 06/06/23 08:05 BEATING TOO FAST Worker's Comp Is this a Worker's Comp case?: No [facility] Disclaimer: The information contained in this section may have been updated after the patient was seen, as this information can be updated by other users. Medical History Acquired hammer toes of both feet Acute gastroenteritis Cervical cancer Contusion of hip, left Edema of left foot Foot pain Foot pain Gastroenteritis Hyperlipidemia Hypothyroid Knee pain Knee sprain Laceration Left shoulder pain Lumbar back sprain Mass of soft tissue of foot Migraine Thyroid disease Urinary tract infection UTI (urinary tract infection) Surgical History H/O shoulder surgery L History of appendectomy History of cholecystectomy History of hysterectomy History of knee surgery x2 L x1 R History of tubal ligation Status post foot surgery Family History Other Family history of diabetes mellitus type II Family history of hypertension Family history of myocardial infarction Social History Smoking Status: Never smoker alcohol intake: never counseling provided: none substance use type: denies use current occupational status: employed Travel in the last 8 weeks: None household members: spouse housing: house current occupation: [employer] caffeine: Yes ROS Obtained: Yes All systems reviewed & no additional complaints except as documented and Yes Systems reviewed as appropriate & no additional complaints except as documented Constitutional Constitutional: Reports system reviewed and no additional complaints, except as documented, Reports as per HPI, Denies fever(s) and Denies headache(s) ENT Ears, Nose, Mouth, and Throat: Reports system reviewed and no additional complaints, except as documented, Reports as per HPI and Denies headache(s) Cardiovascular Cardiovascular: Reports system reviewed and no additional complaints, except as documented and Reports as per HPI Respiratory Respiratory: Reports system reviewed and no additional complaints, except as documented, Reports as per HPI, Reports shortness of breath (at times pain takes her breath), Reports cough, Denies hemoptysis, Reports pain on inspiration, Reports pain with cough, Denies stridor and Denies wheezing Gastrointestinal Gastrointestingal: Reports system reviewed and no additional complaints, except as documented and as per HPI Neurologic Neurologic: Denies headache(s) Allergic/Immunologic Allergic/Immunologic: Denies wheezing Physical Exam General General appearance: alert and in no apparent distress ENT ENT exam: Present mucous membranes moist Chest Chest inspection: Present normal inspection and symmetric chest wall rise Respiratory Respiratory exam: Present normal lung sounds bilaterally; Absent respiratory distress or wheezes Cardiovascular Cardiovascular exam: Present regular rate, normal rhythm and normal heart sounds Neurological Exam Neurological exam: Present alert, oriented X3 and normal gait Skin Skin exam: Present warm, dry, intact and other (small rash like area noted on right rib area appears like shingles) Medical Decision Making Hardeep Inquiry Pt receiving controlled substance: No Hardeep was queried for this patient: No Vital Signs: 03/11/24 08:30 Temperature 97.6 F Temperature Source Oral Pulse Rate [Left Brachial] 77 Respiratory Rate 20 Blood Pressure [Left Arm] 133/69 Blood Pressure Mean [Left Arm] 90 Blood Pressure Source [Left Arm] Automatic Cuff Blood Pressure Position [Left Arm] Sitting 02 Sat by Pulse Oximetry 98 Oxygen Delivery Method Room Air Orders (Tests/Meds): ORDERS Category Date Time Status XR ribs RT min 3V w CXR1V Stat Exams 03/11/24 08:38 Taken Radiology Data #1: Image(s): Chest (with right ribs) Image Reviewed: Yes I have reviewed radiologist's interpretation no acute process Medical Decision Narrative: During initial exam red area noted on right rib area unsure if patient has scratched or rubbed area, can feel bumpy like area however unable to visialize rash well will re-examine after patient has sit and allowed area to rest Upon reinspection of skin on right rib area noticed small blister like rash appears like shingles which could contribute to patient complaints of pain in the area and tenderness awaiting xray reading
[2024-03-11 10:20] VITALS: BP 133/69; PULSE 77; RESP 20; TEMP 36.4; O2SAT 98
== END 2024-03-11 10:23 | disposition home or self-care (01) ==
PROVIDERS: Emergency Provider Nurse Practitioner; PCP Family Medicine
DX: B02.9 Zoster without complications (principal); R07.1 Chest pain on breathing; R06.02 Shortness of breath
CPT/HCPCS: 71101; 99212; 99214; G0463

== ENCOUNTER 2024-03-17 10:08 | Outpatient (POV) | payer OTHER, SELFPAY ==
--- NOTE | 2024-03-17 10:25 | EXP.PAIN.OV ---
HPI Data of Consult Patient: new to practice Consult date: 03/17/24 Requesting Physician: Venita Krishnan APRN Primary Care Provider: Umang Gamino MD Consult Narrative Reason for consult: Acute shingles outbreak History of present illness: Ms. Krishnan is a 53 year old female who presents today as a new patient. She is a referral from Dr. Gamino's office. Today she rates her pain a 6 out of 10. Patient signs that she has pain all throughout her mid back along the right side but does radiate up under her right breast. Patient states this started this the weekend before last. Patient states that she had a burning stinging sensation that came on and that she worried it was pleurisy. She states she ended up going to the [facility] on Sunday and that they diagnosed her with acute shingles. She had started to have a rash in and around her right mid back and she now states that it is all under her right breast as well. Patient states the pain is constant and states that is interfering with any and all activities. She states that she cannot sleep and that cooking and cleaning are difficult to do. Patient states that nothing seems to make it better. She states that the [facility] did send her home on antivirals and lidocaine patches however that has not seemed to make much difference. Patient is not interested in any help we may be able to provide.Patient is not on any scheduled medications. Her Hardeep has been reviewed and is appropriate. CC: Venita Krishnan APRN [facility] Disclaimer: The information contained in this section may have been updated after the patient was seen, as this information can be updated by other users. Medical History Acquired hammer toes of both feet Acute gastroenteritis Cervical cancer Contusion of hip, left Edema of left foot Foot pain Foot pain Gastroenteritis Hyperlipidemia Hypothyroid Knee pain Knee sprain Laceration Left shoulder pain Lumbar back sprain Mass of soft tissue of foot Migraine Thyroid disease Urinary tract infection UTI (urinary tract infection) Surgical History H/O shoulder surgery L History of appendectomy History of cholecystectomy History of hysterectomy History of knee surgery x2 L x1 R History of tubal ligation Status post foot surgery Family History Other Family history of diabetes mellitus type II Family history of hypertension Family history of myocardial infarction Social History Smoking Status: Never smoker alcohol intake: never counseling provided: none substance use type: denies use current occupational status: employed Travel in the last 8 weeks: None household members: spouse housing: house current occupation: [employer] caffeine: Yes Review of Systems Review of Systems Review of systems:: pertinent systems reviewed and negative unless documented below Review of systems (narrative): Review of Systems: General: No recent weight changes, no fever, no sleep disturbances Respiratory: No cough, no shortness of air, no recurring pulmonary infections Cardiovascular/peripheral vascular: No chest pain, no palpitations, no edema, no shortness of breath Gastrointestinal: No new onset incontinence, normal bowel movements reported Genitourinary: No new onset incontinence Musculoskeletal: Right mid back and right upper quadrant abdomen pain/right breast Psychiatric: [Normal mood/affect] Neurological: [Denies weakness in extremities], [denies balance issues] Meds Home Medications and Allergies Home Medications ?Medication ?Instructions ?Recorded ?Confirmed ?Type dapagliflozin propanediol 10 mg 10 mg PO DAILY 02/21/24 03/11/24 History tablet (Farxiga) finerenone 10 mg tablet (Kerendia) 10 mg PO DAILY 02/21/24 03/11/24 History levothyroxine 125 mcg tablet 125 mcg PO DAILY 02/21/24 03/11/24 History losartan 50 mg tablet 50 mg PO DAILY 02/21/24 03/11/24 History pravastatin 40 mg tablet 40 mg PO DAILY 02/21/24 03/11/24 History topiramate 50 mg tablet 50 mg PO DAILY 02/21/24 03/11/24 History lidocaine 4 % topical patch 1 patch topical DAILY PRN pain #10 03/11/24 Rx ea valacyclovir 1 gram tablet 1,000 mg PO Q8H 7 days #21 tabs 03/11/24 Rx New Prescriptions to Start Prescriptions: Allergies Allergy/AdvReac Type Severity Reaction Status Date / Time naproxen [NAPROXEN] Allergy Mild HEART Verified 06/06/23 08:05 BEATING TOO FAST Objective Narrative: Physical Exam: General: Alert and oriented x3, no acute distress, pleasant and cooperative Lungs: Respirations even and unlabored, symmetrical chest expansion Eyes: PERRL Musculoskeletal: Flexion and extension of thoracic [spine] somewhat guarded secondary to pain, [antalgic gait noted] point tenderness along right thoracic paraspinous muscles and right upper quadrant of her abdomen with diffuse rash noted that follows along the dermatome Neurological: Speech clear, no gross sensory deficit Assessment and Plan *Assessment and plan (1) Shingles: Status: Acute Qualifiers: Herpes zoster complications: without complications Qualified Code(s): B02.9 - Zoster without complications Category: Medical Code(s): B02.9 - Zoster without complications (2) Myofascial pain on right side: Status: Acute Category: Medical Code(s): M79.18 - Myalgia, other site Plan Patient is experiencing significant pain in and around her right thoracic spine with radiating symptoms to her abdomen. Patient did have point tenderness along her right thoracic paraspinous and right upper quadrant muscles with a diffuse rash noted. I have discussed with the patient that I will order her a compounded cream, and gabapentin 100 mg 3 times a day and provided 2-week supply of this medication. I have discussed with patient that she may benefit from trigger point injections and around where the rashes noted. Risk and benefits were discussed with the patient and she would like to proceed forward with this plan of care. Patient will be submitted for trigger point injections of her right thoracic paraspinous and right upper quadrant muscles. This will be done without fluoroscopy or ultrasound. Patient has been instructed to contact the clinic with any concerns before the next appointment. Dr. Harris has reviewed this note and agrees with this plan of care. This note was dictated using voice recognition software and make contain errors or omissions. All injections are used with Lidocaine or Bupivacaine and Depo Medrol.
[2024-03-17 12:05] VITALS: BP 135/76; PULSE 82; RESP 18; O2SAT 96; BMI 41.1
== END 2024-03-17 23:59 | disposition home or self-care (01) ==
PROVIDERS: PCP Family Medicine; Visit Provider Nurse Practitioner Family
DX: B02.9 Zoster without complications (principal); M79.18 Myalgia, other site; Z73.89 Other problems related to life management difficulty
CPT/HCPCS: 99202; G0463

== ENCOUNTER 2024-03-18 08:18 | Day surgery (SDC) | payer OTHER, SELFPAY ==
[2024-03-18 08:27] VITALS: BP 150/77; PULSE 88; RESP 16; TEMP 36.6; O2SAT 97; BMI 41.1
[2024-03-18] MEDS: LIDOCAINE 1% 5ML PF VIAL 5 ML (08:42)
[2024-03-18] MEDS: methylPREDNISolone ACETATE 80MG/ML VIAL 80 MG (08:42)
[2024-03-18] MEDS: BUPIVACAINE 0.25% 10ML INJ 25 MG IJ (08:42)
[2024-03-18 08:43] VITALS: BP 147/92; PULSE 97; RESP 18; O2SAT 98
[2024-03-18 08:45] VITALS: BP 147/92; PULSE 97; RESP 18; O2SAT 98
[2024-03-18 08:58] VITALS: BP 130/73; PULSE 76; RESP 18; O2SAT 97
--- NOTE | 2024-03-18 08:58 | EXP.PAIN.PRO ---
Procedure Date: 03/18/24 Time: 08:45 Anesthesiologist:: Brandan Goins CRNA Complications:: None Pre-procedure Diagnosis:: Acute shingles outbreak. Post-procedure Diagnosis:: Same. Indications for Procedure:: Patient is a pleasant 53-year-old female comes her clinic today for trigger point injections of cortisone and local anesthetic in and around acute shingles outbreak. The outbreak is from the sternum on the right side under the right breast around the thoracic cavity to the midline of the spine. Patient is taking antiviral. She is on Neurontin. Procedure Details:: Details of the procedure explained the patient. The patient taken procedure room patient sitting position. The area over the acute shingles outbreak was injected in multiple locations in a fanning fashion using a 25-gauge inch and half needle. The injectate was cortisone, 1% lidocaine and 0.25% Marcaine. Patient Toller procedure without difficulty. General complications. A total of 20 cc of injectate was administered. Plan and Disposition:: Patient was discharged without incident.
== END 2024-03-18 08:58 | disposition home or self-care (01) ==
PROVIDERS: PCP Family Medicine; Visit Provider Nurse Anesthetist, Certified Registered
DX: B02.9 Zoster without complications (principal)
CPT/HCPCS: 20553; J1010

== ENCOUNTER 2024-03-25 07:52 | Day surgery (SDC) | payer OTHER, SELFPAY ==
[2024-03-25 08:18] VITALS: BP 155/98; PULSE 64; RESP 16; TEMP 36.3; O2SAT 97; BMI 41.1
[2024-03-25] MEDS: BUPIVACAINE 0.25% 10ML INJ 25 MG IJ (08:36)
[2024-03-25] MEDS: methylPREDNISolone ACETATE 80MG/ML VIAL 80 MG (08:36)
[2024-03-25] MEDS: LIDOCAINE 1% 5ML PF VIAL 5 ML (08:36)
[2024-03-25 08:37] VITALS: BP 140/72; PULSE 72; RESP 19; O2SAT 98
[2024-03-25 08:39] VITALS: BP 140/72; PULSE 74; RESP 18; O2SAT 98
[2024-03-25 08:46] VITALS: BP 103/60; PULSE 59; RESP 18; O2SAT 97
--- NOTE | 2024-03-25 08:56 | EXP.PAIN.PRO ---
Procedure Date: 03/25/24 Time: 08:30 Anesthesiologist:: Brandan Goins CRNA Complications:: None Pre-procedure Diagnosis:: Acute shingles outbreak Post-procedure Diagnosis:: Same Indications for Procedure:: Patient is a pleasant 53-year-old female comes our clinic today for repeat trigger point injections of cortisone and local anesthetic around the acute shingles outbreak. The outbreak is from the sternum on the right side and of the right breast in the thoracic cavity to the midline of the spine. Patient is taking antiviral. She is also on Neurontin. She comes to the clinic today for repeat trigger point injections of the infected area. Procedure Details:: Details of the procedure explained the patient. The patient taken procedure room patient sitting position. The area over the acute shingles outbreak was injected in multiple locations in a fanning fashion using a 25-gauge inch and half needle. The injectate was cortisone, 1% lidocaine and 0.25% Marcaine. Patient Toller procedure without difficulty. General complications. A total of 20 cc of injectate was administered. Plan and Disposition:: Patient was discharged without incident. I informed the patient she should come back next week if in fact the lesions are continuing to be painful.
== END 2024-03-25 08:46 | disposition home or self-care (01) ==
PROVIDERS: PCP Family Medicine; Visit Provider Nurse Anesthetist, Certified Registered
DX: B02.9 Zoster without complications (principal)
CPT/HCPCS: 20553; J1010

== ENCOUNTER 2024-04-07 08:38 | Outpatient (POV) | payer OTHER, SELFPAY ==
[2024-04-07 08:57] VITALS: BP 119/72; PULSE 74; RESP 18; O2SAT 98; BMI 40.6
--- NOTE | 2024-04-07 09:03 | A.OFFVIS_ITS ---
[facility] Disclaimer: The information contained in this section may have been updated after the patient was seen, as this information can be updated by other users. Medical History Acquired hammer toes of both feet Acute gastroenteritis Cervical cancer Contusion of hip, left Edema of left foot Foot pain Foot pain Gastroenteritis Hyperlipidemia Hypothyroid Knee pain Knee sprain Laceration Left shoulder pain Lumbar back sprain Mass of soft tissue of foot Migraine Thyroid disease Urinary tract infection UTI (urinary tract infection) Surgical History H/O shoulder surgery L History of appendectomy History of cholecystectomy History of hysterectomy History of knee surgery x2 L x1 R History of tubal ligation Status post foot surgery Family History Other Family history of diabetes mellitus type II Family history of hypertension Family history of myocardial infarction Social History Smoking Status: Never smoker alcohol intake: never counseling provided: none substance use type: denies use current occupational status: employed Travel in the last 8 weeks: None household members: spouse housing: house current occupation: [employer] caffeine: Yes PM Subjective & Objective Subjective Subjective:: Patient is a pleasant 54-year-old female who presents today for follow-up of tri gger point injections of her right upper quadrant and thoracic cavity related to herpes zoster on 03/25/2024. Today she does rate her pain a 3 out of 10. She denies any new trauma or injury. She does state that the pain is still varying from day-to-day. She states that the first injections did help very well over 50% however the second set were not as well and seem to kind of aggravate her pain. Patient does also state that the compounded cream worsened the pain and that she discontinued applying this in this location. Patient does state that she did use the gabapentin 100 mg 3 times a day and felt like she did not have any side effects however she is not sure how well it is seem to improve the symptoms. Patient does also state that the muscle relaxer of tizanidine 4 mg at bedtime does help her sleep for at least a couple of hours however she is often still waking up in the middle of the night. Her Hardeep has been reviewed and is appropriate. Review of Systems: General: No recent weight changes, no fever, no sleep disturbances Respiratory: No cough, no shortness of air, no recurring pulmonary infections Cardiovascular/peripheral vascular: No chest pain, no palpitations, no edema, no shortness of breath Gastrointestinal: No new onset incontinence, normal bowel movements reported Genitourinary: No new onset incontinence Musculoskeletal: Right abdomen/mid back pain Psychiatric: [Normal mood/affect] Neurological: [Denies weakness in extremities], [denies balance issues] Pain at rest (0-10 scale): 3 Objective Objective:: Physical Exam: General: Alert and oriented x3, no acute distress, pleasant and cooperative Lungs: Respirations even and unlabored, symmetrical chest expansion Eyes: PERRL Musculoskeletal: Flexion and extension of thoracic [spine] somewhat guarded secondary to pain, [antalgic gait noted] Neurological: Speech clear, no gross sensory deficit Has patient had previous pain injection?: Yes Percent improvement in pain since last injection: 50% Conservative treatment options previously tried: Home exercise plan Length of treatment: Longer than 4 weeks Meds Home Medications and Allergies Home Medications ?Medication ?Instructions ?Recorded ?Confirmed ?Type dapagliflozin propanediol 10 mg 10 mg PO DAILY 02/21/24 04/07/24 History tablet (Farxiga) finerenone 10 mg tablet (Kerendia) 10 mg PO DAILY 02/21/24 04/07/24 History levothyroxine 125 mcg tablet 125 mcg PO DAILY 02/21/24 04/07/24 History losartan 50 mg tablet 50 mg PO DAILY 02/21/24 04/07/24 History pravastatin 40 mg tablet 40 mg PO DAILY 02/21/24 04/07/24 History topiramate 50 mg tablet 50 mg PO DAILY 02/21/24 04/07/24 History lidocaine 4 % topical patch 1 patch topical DAILY PRN pain #10 03/11/24 04/07/24 Rx ea valacyclovir 1 gram tablet 1,000 mg PO Q8H 7 days #21 tabs 03/11/24 04/07/24 Rx gabapentin 100 mg capsule 100 mg PO TID #42 caps 03/17/24 04/07/24 Rx tizanidine 4 mg tablet (Zanaflex) 4 mg PO HS #14 tabs 04/03/24 04/07/24 Rx New Prescriptions to Start Prescriptions: Allergies Allergy/AdvReac Type Severity Reaction Status Date / Time naproxen [NAPROXEN] Allergy Mild HEART Verified 03/18/24 08:28 BEATING TOO FAST Assessment and Plan *Assessment and plan (1) Myofascial pain on right side: Status: Acute Category: Medical Code(s): M79.18 - Myalgia, other site (2) Shingles: Status: Acute Qualifiers: Herpes zoster complications: without complications Qualified Code(s): B02.9 - Zoster without complications Category: Medical Code(s): B02.9 - Zoster without complications Plan I did discuss with the patient that in future we can always do additional trigger point injections as well as change up her compounded cream ingredients to see if this does provide better relief. I did pediatric genetic counselor the patient that I will send in a new prescription of gabapentin 100 mg 4 times a day and she was counseled that she can take 2 during the day and to take 2 tablets at bedtime. Patient is agreeable to this. I will also refill her tizanidine and provide a 1 month supply of these medications. Patient will return to clinic in 1 month for reevaluation of symptoms and plan of care. Patient has been instructed to contact the clinic with any concerns before the next appointment. Dr. Harris has reviewed this note and agrees with this plan of care. This note was dictated using voice recognition software and make contain errors or omissions. All injections are used with Lidocaine or Bupivacaine and Depo Medrol.
== END 2024-04-07 23:59 | disposition home or self-care (01) ==
PROVIDERS: PCP Family Medicine; Visit Provider Nurse Practitioner Family
DX: M79.18 Myalgia, other site (principal); B02.9 Zoster without complications
CPT/HCPCS: 99212; G0463

== ENCOUNTER 2024-05-08 07:09 | Outpatient (CLI) | payer OTHER, SELFPAY ==
[2024-05-08 08:21] LABS: Chloride 111 mmol/L (98-107); Potassium 4.5 mmoL/L (3.5-5.1); Sodium 140 mmol/L (136-145)
[2024-05-08 08:24] LABS: Anion Gap 8.5 mEq/L (5-15); Blood Urea Nitrogen 19 mg/dl (7-17); Calcium 9.9 mg/dl (8.4-10.2); Carbon Dioxide 25 mmol/L (22.0-30.0); Estimated Glomerular Filt Rate 51 ml/min (>60); GFR (African American) 62 ML/MIN (>60); Glucose 88 mg/dl (74-100)
== END 2024-05-08 23:59 | disposition home or self-care (01) ==
LOC: LAB 07:10
PROVIDERS: PCP Family Medicine; Visit Provider Family Medicine
DX: N18.31 Chronic kidney disease, stage 3a (principal)
CPT/HCPCS: 36415; 80048

== ENCOUNTER 2024-09-29 06:11 | Emergency (ER) | payer OTHER, SELFPAY ==
[2024-09-29 06:13] VITALS: BP 132/82; PULSE 100; RESP 18; TEMP 37.2; O2SAT 96; BMI 41.1
[2024-09-29 06:31] LABS: Coronavirus 19, PCR Not Detected (NotDetected); Influenza B, PCR Not Detected (NotDetected)
[2024-09-29] MEDS: MAGNESIUM SULFATE IN WATER 2 GM/50 ML PIGGYBACK IV (06:36)
[2024-09-29] MEDS: PROCHLORPERAZINE 10MG/2ML VIAL 10 MG IV (06:37)
[2024-09-29] MEDS: DEXAMETHASONE 4MG/ML 1ML VIAL 8 MG IV (06:38)
[2024-09-29] MEDS: ACETAMINOPHEN 1,000MG/100ML VIAL 1000 MG IV (06:38)
[2024-09-29] MEDS: LACTATED RINGERS 1000ML 1,000 ML 999 ML IV (06:38)
--- NOTE | 2024-09-29 06:45 | ED_ITS ---
Discharge Plan Disposition Patient Disposition: Home, Self-Care Condition: Good Prescriptions Prescriptions: New ondansetron 4 mg tablet,disintegrating 4 mg PO Q8H PRN (Reason: nausea and vomiting) 4 Days Qty: 12 0RF alyjsthxgazrbic-bqexbhwbc-DK [Bromfed DM] 2-30-10 mg/5 mL syrup 5 ml PO Q6H PRN (Reason: cold symptoms) Qty: 118 0RF No Action valacyclovir 1 gram tablet 1,000 mg PO Q8H 7 Days Qty: 21 0RF lidocaine 4 % adhesive patch,medicated 1 patch topical DAILY PRN (Reason: pain) Qty: 10 0RF Rx Instructions: apply to area leave on for 12 hours then remove for 12 hours tizanidine [Zanaflex] 4 mg tablet 4 mg PO HS Qty: 30 0RF gabapentin 100 mg capsule 100 mg PO QID Qty: 120 0RF losartan 50 mg tablet 50 mg PO DAILY Patient Comments: TAKE ONE TABLET BY MOUTH EVERY DAY pravastatin 40 mg tablet 40 mg PO DAILY Patient Comments: TAKE ONE TABLET BY MOUTH EVERY DAY AT BEDTIME levothyroxine 125 mcg tablet 125 mcg PO DAILY Patient Comments: TAKE ONE TABLET BY MOUTH EVERY DAY topiramate 50 mg tablet 50 mg PO DAILY Patient Comments: TAKE THREE TABLETS BY MOUTH EVERY DAY dapagliflozin propanediol [Farxiga] 10 mg tablet 10 mg PO DAILY Patient Comments: TAKE ONE TABLET BY MOUTH EVERY DAY Kerendia 10 mg tablet 10 mg PO DAILY Patient Comments: TAKE ONE TABLET BY MOUTH EVERY DAY Referrals Follow up/Referrals: Umang Gamino MD [Primary Care Provider] - See instructions Activity Restrictions/Add. Instructions Additional Instructions/Restrictions: You were evaluated in the emergency department today and diagnosed with the flu. 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 Take Tylenol every 4-6 hours as needed for pain/fever. Drink plenty of fluids. Follow-up closely with your primary care provider. Return to the emergency department for new or worsening symptoms. Clinical Impressions Clinical Impression: Headache, Influenza Stand Alone Forms Stand Alone Forms: Work/School Release Instructions Patient Instructions: DI for Viral Upper Respiratory Infection -- Adult, DI for Viral Syndrome, DI for Headache Print Language Print Language: Armenian Discharge ED Provider: Venita Chester [facility] Adult HPI <Ramon Huddleston MD - Last Filed: 09/29/24 07:00> General Chief complaint: Headache Stated complaint: headache, back pain, nausea, cough Time Seen by Provider: 09/29/24 06:15 Mode of Arrival: Ambulatory Source of Information: Patient Limitations: No Limitations Description of Symptoms (Recalled from ER Triage Doc. by RN): Pt presents to ED for headache, cough, body aches. Pt states she hasn't been able to eat or drink for 2 days. Pt states her headache feels worse than a migraine. Pt has hx of hypertension and kidney disease. Pt rates ROMO 7/. Pt is A&O*4 and family is bedside. History of Present Illness HPI narrative: 54-year-old female with history of chronic kidney disease hyperlipidemia hypertension and migraines presents for multiple complaints, flulike symptoms. She reports she has been having cough congestion fevers nausea muscle aches headache etc. She reports that she does get migraines and feels like she has a migraine now, it has been present since Sunday. Rates headache 7 out of 10. Related Data Home Medications ?Medication ?Instructions ?Recorded ?Confirmed dapagliflozin propanediol 10 mg 10 mg PO DAILY 02/21/24 09/25/24 tablet (Farxiga) finerenone 10 mg tablet (Kerendia) 10 mg PO DAILY 02/21/24 09/25/24 levothyroxine 125 mcg tablet 125 mcg PO DAILY 02/21/24 09/25/24 losartan 50 mg tablet 50 mg PO DAILY 02/21/24 09/25/24 pravastatin 40 mg tablet 40 mg PO DAILY 02/21/24 09/25/24 topiramate 50 mg tablet 50 mg PO DAILY 02/21/24 09/25/24 Previous Rx's ?Medication ?Instructions ?Recorded lidocaine 4 % topical patch 1 patch topical DAILY PRN pain #10 03/11/24 ea valacyclovir 1 gram tablet 1,000 mg PO Q8H 7 days #21 tabs 03/11/24 gabapentin 100 mg capsule 100 mg PO QID #120 caps 04/07/24 tizanidine 4 mg tablet (Zanaflex) 4 mg PO HS #30 tabs 04/07/24 ydmuzjrcfdhgzht-yhqsbinnxemwgag-EF 5 ml PO Q6H PRN cold symptoms #118 09/29/24 2 mg-30 mg-10 mg/5 mL oral syrup mL (Bromfed DM) ondansetron 4 mg disintegrating 4 mg PO Q8H PRN nausea and 09/29/24 tablet vomiting 4 days #12 tabs Allergies Allergy/AdvReac Type Severity Reaction Status Date / Time naproxen (NAPROXEN) Allergy Mild HEART Verified 09/25/24 10:05 BEATING TOO FAST [facility] <Ramon Huddleston MD - Last Filed: 09/29/24 07:00> [facility] Disclaimer: The information contained in this section may have been updated after the patient was seen, as this information can be updated by other users. Medical History Hypothyroid Cervical cancer Left shoulder pain Thyroid disease Urinary tract infection Migraine Hyperlipidemia Acute gastroenteritis Foot pain Mass of soft tissue of foot Edema of left foot Acquired hammer toes of both feet Foot pain Laceration Contusion of hip, left UTI (urinary tract infection) Knee pain Gastroenteritis Knee sprain Lumbar back sprain Surgical History H/O shoulder surgery L History of knee surgery x2 L x1 R History of tubal ligation History of hysterectomy History of cholecystectomy History of appendectomy Status post foot surgery Family History Other Family history of diabetes mellitus type II Family history of hypertension Family history of myocardial infarction Social History Smoking Status: Former smoker alcohol intake: never counseling provided: none substance use type: denies use current occupational status: employed Travel in the last 8 weeks: None household members: spouse housing: house current occupation: [employer] caffeine: Yes Have you lived/traveled outside [place] in past 30 days?: No Contact w/someone who lives/traveled outside US past 30 days?: No Exposure to someone with infectious disease in past 14 days?: No Do you have a fever (greater than 100.4 F or 38 C)?: No Have you tested positive for COVID-19: No Exposed to someone with COVID-19 in past 14 days?: No Do you have a sore throat?: No Do you have a cough?: Yes Do you have any weakness?: No Do you have any diarrhea?: No Are you experiencing any unusual bleeding?: No Do you have any muscle aches/pain?: No Do you have any abdominal pain?: No Are you experiencing loss of taste or smell?: No Other Medical History Have you received the Flu Vaccine for this season: No Have you received the Pneumonia Vaccine: No <Ramon Huddleston MD - Last Filed: 09/29/24 07:00> ROS Obtained: Yes All systems reviewed & no additional complaints except as documented Physical Exam <Ramon Huddleston MD - Last Filed: 09/29/24 07:00> General General appearance: alert and in no apparent distress Head Head exam: atraumatic and normocephalic Eye Eye exam: Present normal appearance, PERRL and EOMI ENT ENT exam: Present normal oropharynx and normal external ear exam Neck Neck exam: Present normal inspection and full ROM Chest Chest inspection: Present normal inspection and symmetric chest wall rise; Absent tenderness Respiratory Respiratory exam: Present normal lung sounds bilaterally; Absent respiratory distress Cardiovascular Cardiovascular exam: Present regular rate and normal rhythm Abdominal Exam Abdominal exam: Present soft; Absent distention, tenderness or guarding Extremities Exam Extremities exam: Present normal inspection; Absent edema or joint swelling Back Exam Back exam: Present normal inspection; Absent tenderness Neurological Exam Neurological exam: Present alert and oriented X3; Absent motor sensory deficit Psychiatric Psychiatric exam: Present normal affect and normal mood Skin Skin exam: Present warm, dry and normal color Lymphatic Lymphatic Findings: no adenopathy Medical Decision Making <Ramon Huddleston MD - Last Filed: 09/29/24 07:00> Medical Records Medical records reviewed: Yes I reviewed the patient's medical records. Screening: Per USPSTF and CDC recommendations, given the prevalence of disease in our region, it is our hospital?s policy to screen for HIV and viral Hepatitis for all patients aged 18 and over and those with ongoing risk factors. Hardeep Inquiry Pt receiving controlled substance: No Hardeep was queried for this patient: No Vital Signs: 09/29/24 06:13 09/29/24 08:00 09/29/24 08:15 Temperature 98.9 F Temperature Source Oral Pulse Rate 87 79 Pulse Rate [Left] 100 H Respiratory Rate 18 Blood Pressure 134/68 Blood Pressure [Right Arm] 132/82 Blood Pressure Mean 84 Blood Pressure Mean [Right Arm] 98 Blood Pressure Source Blood Pressure Position 02 Sat by Pulse Oximetry 96 95 96 Oxygen Delivery Method Room Air Room Air Room Air 09/29/24 08:30 09/29/24 09:01 09/29/24 09:03 Temperature 98.5 F Temperature Source Oral Pulse Rate 77 73 72 Pulse Rate [Left] Respiratory Rate 18 Blood Pressure 129/70 124/63 124/63 Blood Pressure [Right Arm] Blood Pressure Mean Blood Pressure Mean [Right Arm] Blood Pressure Source Automatic Cuff Blood Pressure Position Sitting 02 Sat by Pulse Oximetry 96 95 Oxygen Delivery Method Room Air Room Air Room Air Lab Data Lab results reviewed: Yes I reviewed the patient's lab results. Lab Results 09/29/24 06:19: SARS-CoV-2 (PCR) Not detected, Influenza A Untype (PCR) Detected A, Influenza Type B (PCR) Not detected 09/29/24 06:31: WBC 3.9 L, RBC 5.12, Hgb 15.5, Hct 45.3, MCV 88.5, MCH 30.3, MCHC 34.2, RDW 12.4, Plt Count 180, MPV 10.7 H, Neut % (Auto) 70.5, Lymph % (Auto) 14.1, [place] % (Auto) 14.3 H, Eos % (Auto) 0.0 L, Baso % (Auto) 0.8, Neut # (Auto) 2.8, Lymph # (Auto) 0.6 L, [place] # (Auto) 0.6, Eos # (Auto) 0.0, Baso # (Auto) 0.0, Sodium 139, Potassium 3.7, Chloride 107, Carbon Dioxide 17 L, Anion Gap 18.7 H, BUN 17, Creatinine 1.10 H, Estimated Creat Clear 98, Estimated GFR 51 L, Est GFR ( Amer) 62, Glucose 107 H, Calcium 9.6, Magnesium 2.0, Total Bilirubin 0.9, AST 116 H, ALT 44, Alkaline Phosphatase 133 H, Total Protein 8.5 H, Albumin 5.1 H, Globulin 3.4 H, Albumin/Globulin Ratio 1.5, HCV Ab ZOHRA w/Rflx PCR Qn Negative, HIV Ag/Ab Combo Qual Negative 09/29/24 06:31 09/29/24 06:31 Orders (Tests/Meds): ED MEDICATIONS Discontinued Medications Generic Name Dose Route Start Last Admin Trade Name Freq PRN Reason Stop Dose Admin Acetaminophen 1,000 mg 09/29/24 06:19 09/29/24 06:38 Acetaminophen 1,000mg/100ml Vial IV 09/29/24 06:20 1,000 mg ONCE ONE Administration Dexamethasone Sodium Phosphate 8 mg 09/29/24 06:19 09/29/24 06:38 Dexamethasone 4mg/Ml 1ml Vial IV 09/29/24 06:20 8 mg ONCE ONE Administration Diphenhydramine HCl 12.5 mg 09/29/24 07:41 09/29/24 07:53 Diphenhydramine 50mg/Ml Vial IV 09/29/24 07:42 12.5 mg ONCE ONE Administration Lactated Ringer's 1,000 mls @ 999 mls/hr 09/29/24 06:30 09/29/24 06:38 Lactated Ringer's 1000 Ml Bag IV 09/29/24 07:30 999 mls/hr .Q1H1M SHIRLEY Administration Magnesium Sulfate 2 gm in 50 mls @ 150 mls/hr 09/29/24 06:19 09/29/24 06:36 Magnesium Sulfate 2gm/50ml Premix IV 09/29/24 06:38 150 mls/hr ONCE ONE Administration Lactated Ringer's 500 mls @ 999 mls/hr 09/29/24 07:42 09/29/24 07:53 Lactated Ringer's 500ml IV 09/29/24 08:12 999 mls/hr .Q31M ONE Administration Ketorolac Tromethamine 30 mg 09/29/24 07:41 09/29/24 07:53 Ketorolac 30mg/Ml Vial IV 09/29/24 07:42 30 mg ONCE ONE Administration Prochlorperazine Edisylate 10 mg 09/29/24 06:19 09/29/24 06:37 Prochlorperazine 10mg/2ml Vial IV 09/29/24 06:20 10 mg ONCE ONE Administration ORDERS Category Date Time Status CBC w/Auto Diff [Complete Blood Count Auto Diff] Stat Lab 09/29/24 06:31 Completed CMP [Comprehensive Metabolic Panel] Stat Lab 09/29/24 06:31 Completed HIV Combo Routine Lab 09/29/24 06:31 Completed Hepatitis C Ab Qual. W/ RFX Routine Lab 09/29/24 06:31 Completed Magnesium Stat Lab 09/29/24 06:31 Completed Rapid PCR Covid and Flu A/B Stat Lab 09/29/24 06:19 Completed Medical Decision Narrative: 54-year-old female with history of of migraines hyperlipidemia chronic kidney disease hypothyroidism presents for flulike symptoms, headache. History was obtained via interactive discussion with patient, family, chart review. On arrival, patient is afebrile, hemodynamically stable, mildly tachycardic, moving all extremities spontaneously. Full physical exam performed and significant for clear lungs bilaterally Differential includes but is not limited to COVID, flu, URI, tension headache, migraine headache. Patient was given 1 L IV fluid, 2 g mag IV, Ofirmev, Compazine, dexamethasone for symptomatic management and correction of underlying abnormalities. Workup initiated including COVID flu swab CBC CMP mag. On independent interpretation, laboratories all show no significant leukocytosis, positive flu swab. At this time care handoff to oncoming physician pending laboratory workup and symptomatic improvement after interventions. <Venita Chester, DO - Last Filed: 09/29/24 11:40> Vital Signs: 09/29/24 06:13 09/29/24 08:00 09/29/24 08:15 Temperature 98.9 F Temperature Source Oral Pulse Rate 87 79 Pulse Rate [Left] 100 H Respiratory Rate 18 Blood Pressure 134/68 Blood Pressure [Right Arm] 132/82 Blood Pressure Mean 84 Blood Pressure Mean [Right Arm] 98 Blood Pressure Source Blood Pressure Position 02 Sat by Pulse Oximetry 96 95 96 Oxygen Delivery Method Room Air Room Air Room Air 09/29/24 08:30 09/29/24 09:01 09/29/24 09:03 Temperature 98.5 F Temperature Source Oral Pulse Rate 77 73 72 Pulse Rate [Left] Respiratory Rate 18 Blood Pressure 129/70 124/63 124/63 Blood Pressure [Right Arm] Blood Pressure Mean Blood Pressure Mean [Right Arm] Blood Pressure Source Automatic Cuff Blood Pressure Position Sitting 02 Sat by Pulse Oximetry 96 95 Oxygen Delivery Method Room Air Room Air Room Air Lab Data Lab Results 09/29/24 06:19: SARS-CoV-2 (PCR) Not detected, Influenza A Untype (PCR) Detected A, Influenza Type B (PCR) Not detected 09/29/24 06:31: WBC 3.9 L, RBC 5.12, Hgb 15.5, Hct 45.3, MCV 88.5, MCH 30.3, MCHC 34.2, RDW 12.4, Plt Count 180, MPV 10.7 H, Neut % (Auto) 70.5, Lymph % (Auto) 14.1, [place] % (Auto) 14.3 H, Eos % (Auto) 0.0 L, Baso % (Auto) 0.8, Neut # (Auto) 2.8, Lymph # (Auto) 0.6 L, [place] # (Auto) 0.6, Eos # (Auto) 0.0, Baso # (Auto) 0.0, Sodium 139, Potassium 3.7, Chloride 107, Carbon Dioxide 17 L, Anion Gap 18.7 H, BUN 17, Creatinine 1.10 H, Estimated Creat Clear 98, Estimated GFR 51 L, Est GFR ( Amer) 62, Glucose 107 H, Calcium 9.6, Magnesium 2.0, Total Bilirubin 0.9, AST 116 H, ALT 44, Alkaline Phosphatase 133 H, Total Protein 8.5 H, Albumin 5.1 H, Globulin 3.4 H, Albumin/Globulin Ratio 1.5, HCV Ab ZOHRA w/Rflx PCR Qn Negative, HIV Ag/Ab Combo Qual Negative Orders (Tests/Meds): ED MEDICATIONS Discontinued Medications Generic Name Dose Route Start Last Admin Trade Name Freq PRN Reason Stop Dose Admin Acetaminophen 1,000 mg 09/29/24 06:19 09/29/24 06:38 Acetaminophen 1,000mg/100ml Vial IV 09/29/24 06:20 1,000 mg ONCE ONE Administration Dexamethasone Sodium Phosphate 8 mg 09/29/24 06:19 09/29/24 06:38 Dexamethasone 4mg/Ml 1ml Vial IV 09/29/24 06:20 8 mg ONCE ONE Administration Diphenhydramine HCl 12.5 mg 09/29/24 07:41 09/29/24 07:53 Diphenhydramine 50mg/Ml Vial IV 09/29/24 07:42 12.5 mg ONCE ONE Administration Lactated Ringer's 1,000 mls @ 999 mls/hr 09/29/24 06:30 09/29/24 06:38 Lactated Ringer's 1000 Ml Bag IV 09/29/24 07:30 999 mls/hr .Q1H1M SHIRLEY Administration Magnesium Sulfate 2 gm in 50 mls @ 150 mls/hr 09/29/24 06:19 09/29/24 06:36 Magnesium Sulfate 2gm/50ml Premix IV 09/29/24 06:38 150 mls/hr ONCE ONE Administration Lactated Ringer's 500 mls @ 999 mls/hr 09/29/24 07:42 09/29/24 07:53 Lactated Ringer's 500ml IV 09/29/24 08:12 999 mls/hr .Q31M ONE Administration Ketorolac Tromethamine 30 mg 09/29/24 07:41 09/29/24 07:53 Ketorolac 30mg/Ml Vial IV 09/29/24 07:42 30 mg ONCE ONE Administration Prochlorperazine Edisylate 10 mg 09/29/24 06:19 09/29/24 06:37 Prochlorperazine 10mg/2ml Vial IV 09/29/24 06:20 10 mg ONCE ONE Administration ORDERS Category Date Time Status CBC w/Auto Diff [Complete Blood Count Auto Diff] Stat Lab 09/29/24 06:31 Completed CMP [Comprehensive Metabolic Panel] Stat Lab 09/29/24 06:31 Completed HIV Combo Routine Lab 09/29/24 06:31 Completed Hepatitis C Ab Qual. W/ RFX Routine Lab 09/29/24 06:31 Completed Magnesium Stat Lab 09/29/24 06:31 Completed Rapid PCR Covid and Flu A/B Stat Lab 09/29/24 06:19 Completed Medical Decision Narrative: 54-year-old female with history of of migraines hyperlipidemia chronic kidney disease hypothyroidism presents for flulike symptoms, headache. History was obtained via interactive discussion with patient, family, chart review. On arrival, patient is afebrile, hemodynamically stable, mildly tachycardic, moving all extremities spontaneously. Full physical exam performed and significant for clear lungs bilaterally Differential includes but is not limited to COVID, flu, URI, tension headache, migraine headache. Patient was given 1 L IV fluid, 2 g mag IV, Ofirmev, Compazine, dexamethasone for symptomatic management and correction of underlying abnormalities. Workup initiated including COVID flu swab CBC CMP mag. On independent interpretation, laboratories all show no significant leukocytosis, positive flu swab. At this time care handoff to oncoming physician pending laboratory workup and symptomatic improvement after interventions. DO Henrik: I assumed care of the patient at 7 AM. On my assessment, she is lying in bed in no acute distress and is neurologically intact with reassuring vital signs and cardiac telemetry. She states she feels better overall still with mild headache. Given this, I administered Toradol. She does not have a true allergy to NSAIDs, just does not take them because of CKD. I advised a one-time dose likely will not cause any significant harm. Workup included mild leukopenia, creatinine around her baseline. Anion gap is up slightly consistent with volume depletion in the setting of poor oral intake related to this viral illness. She did test positive for flu A. After Toradol and Benadryl, she had further symptomatic improvement and I feel that she is appropriate for discharge home with instruction for supportive management of flu. She is given prescription for Zofran and Bromfed as well as instructions for close follow-up with primary care. Strict return precautions given Procedures <Ramon Huddleston MD - Last Filed: 09/29/24 07:00> Risk/Benefits of Procedure(s) Were Explained: Yes Critical Care <Ramon Huddleston MD - Last Filed: 09/29/24 07:00> Critical Care Time Critical Care Time: No
[2024-09-29 06:48] LABS: Basophils % 0.8 % (0.1-2.0); Hematocrit 45.3 % (37.0-47.0); Hemoglobin 15.5 g/dL (12.2-16.2); Lymphocytes # 0.6 K/mm3 (0.7-4.5); Lymphocytes % 14.1 % (10-50); Mean Corpuscular HGB Conc 34.2 g/dL (31.8-35.4); Mean Corpuscular Hemoglobin 30.3 pg (27.0-31.2); Mean Corpuscular Volume 88.5 fl (81-99); Mean Platelet Volume 10.7 fl (7.4-10.4); Monocytes # 0.6 K/mm3 (0.1-1.0); Monocytes % 14.3 % (1.7-9.3); Neutrophils # 2.8 K/mm3 (1.8-7.8); Neutrophils % 70.5 % (37.0-80.0); Platelet Count 180 K/mm3 (142-424); Red Blood Count 5.12 M/mm3 (4.20-5.40); Red Cell Distribution Width 12.4 % (11.5-17.5); White Blood Count 3.9 K/mm3 (4.8-10.8)
[2024-09-29 06:51] LABS: Albumin Level 5.1 g/dl (3.5-5.0); Chloride 107 mmol/L (98-107); Potassium 3.7 mmoL/L (3.5-5.1); Sodium 139 mmol/L (136-145)
[2024-09-29 06:54] LABS: Alanine Aminotransferase 44 U/L (12-78); Albumin/Globulin Ratio 1.5 (1.1-1.8); Alkaline Phosphatase 133 U/L (38-126); Anion Gap 18.7 mEq/L (5-15); Aspartate Amino Transferase 116 U/L (14-36); Bilirubin,Total 0.9 mg/dl (0.2-1.3); Blood Urea Nitrogen 17 mg/dl (7-17); Carbon Dioxide 17 mmol/L (22.0-30.0); Creatinine Clearance Estimated 98 mL/min (50-200); Estimated Glomerular Filt Rate 51 ml/min (>60); GFR (African American) 62 ML/MIN (>60); Globulin 3.4 g/dL (1.3-3.2); Total Protein,Serum 8.5 g/dl (6.3-8.2)
[2024-09-29 06:55] LABS: Influenza A, PCR Detected (NotDetected)
[2024-09-29 06:55] LABS: Calcium 9.6 mg/dl (8.4-10.2); Glucose 107 mg/dl (74-100)
--- NOTE | 2024-09-29 07:12 | PC.NURSE ---
rounded on patient. assessed LR with ofirmev infusing. no needs reported.
[2024-09-29] MEDS: KETOROLAC 30MG/ML VIAL 30 MG IV (07:53)
[2024-09-29] MEDS: RINGERS SOLUTION,LACTATED 500 ML 999 ML IV (07:53)
[2024-09-29] MEDS: diphenhydrAMINE 50MG/ML VIAL 12.5 MG IV (07:53)
[2024-09-29 08:00] VITALS: PULSE 87; O2SAT 95
[2024-09-29 08:15] VITALS: BP 134/68; PULSE 79; O2SAT 96
[2024-09-29 08:30] VITALS: BP 129/70; PULSE 77; O2SAT 96
[2024-09-29 08:30] LABS: HIV Combo NEGATIVE (Negative)
[2024-09-29 08:38] LABS: Hepatitis C Ab Qual. W/ RFX NEGATIVE (Negative)
[2024-09-29 09:01] VITALS: BP 124/63; PULSE 73; O2SAT 95
[2024-09-29 09:03] VITALS: BP 124/63; PULSE 72; RESP 18; TEMP 36.9; O2SAT 95
== END 2024-09-29 09:11 | disposition home or self-care (01) ==
PROVIDERS: Emergency Medicine; Emergency Provider Emergency Medicine; PCP Family Medicine
DX: J11.1 Influenza due to unidentified influenza virus with other respiratory manifestations (principal); R51.9 Headache, unspecified; R05.9 Cough, unspecified; R63.0 Anorexia; R52 Pain, unspecified
CPT/HCPCS: 80053; 83735; 85025; 86803; 87389; 87636; 96365; 96366; 96367; 96374; 96375; 99283; J0131; J0780; J1100; J1200; J1885; J3475; J7120

== ENCOUNTER 2024-10-22 06:51 | Outpatient (CLI) | payer OTHER, SELFPAY ==
[2024-10-22 08:44] LABS: Alanine Aminotransferase 17 U/L (12-78); Albumin Level 4.4 g/dl (3.5-5.0); Albumin/Globulin Ratio 1.9 (1.1-1.8); Alkaline Phosphatase 88 U/L (38-126); Anion Gap 12.3 mEq/L (5-15); Aspartate Amino Transferase 25 U/L (14-36); Bilirubin,Total 0.8 mg/dl (0.2-1.3); Blood Urea Nitrogen 19 mg/dl (7-17); Calcium 9.7 mg/dl (8.4-10.2); Carbon Dioxide 25 mmol/L (22.0-30.0); Chloride 109 mmol/L (98-107); Chol/HDL Ratio 3.2 (1-3.5); Cholesterol 188 mg/dl (140-200); Estimated Glomerular Filt Rate 46 ml/min (>60); GFR (African American) 56 ML/MIN (>60); Globulin 2.3 g/dL (1.3-3.2); Glucose 84 mg/dl (74-100); HDL Cholesterol 58 mg/dl (40-60); Phosphorous 3.6 mg/dl (2.5-4.5); Potassium 4.3 mmoL/L (3.5-5.1); Sodium 142 mmol/L (136-145); Total Protein,Serum 6.7 g/dl (6.3-8.2); Triglycerides 70 mg/dl (30-150); VLDL Cholesterol 14 mg/dL (0-40)
[2024-10-22 08:55] LABS: Direct LDL Cholesterol 95.17 mg/dL (100-129)
[2024-10-22 08:59] LABS: 25-OH Vitamin D, Total 54.7 ng/mL (30-100)
[2024-10-22 09:02] LABS: Free T4 (Free Thyroxine) 1.35 ng/dl (0.78-2.19)
[2024-10-22 09:15] LABS: Thyroid Stimulating Hormone 5.42 uIU/mL (0.465-4.68)
[2024-10-22 12:53] LABS: Creatinine,Urine Random 83 mg/dL (Not Estab.); Microalbumin < 6.000 mg/L (0-16.7)
== END 2024-10-22 23:59 | disposition home or self-care (01) ==
LOC: LAB 06:53
PROVIDERS: PCP Family Medicine; Visit Provider Family Medicine
DX: N18.31 Chronic kidney disease, stage 3a (principal); E55.9 Vitamin D deficiency, unspecified; E78.5 Hyperlipidemia, unspecified; E03.9 Hypothyroidism, unspecified
CPT/HCPCS: 36415; 80053; 80061; 82043; 82306; 82570; 84100; 84439; 84443

== ENCOUNTER 2025-03-16 16:40 | Outpatient (CLI) | payer OTHER, SELFPAY | END 2025-03-16 23:59 | disposition home or self-care (01) | LOC: RAD 16:41 | PROVIDERS: PCP Family Medicine; Visit Provider Family Medicine | DX: Z12.31 Encounter for screening mammogram for malignant neoplasm of breast (principal) | CPT/HCPCS: 77063; 77067 ==

== ENCOUNTER 2025-06-01 11:02 | Outpatient (CLI) | payer OTHER, SELFPAY ==
[2025-06-01 11:38] LABS: Chloride 106 mmol/L (98-107)
[2025-06-01 11:39] LABS: Albumin Level 4.5 g/dl (3.5-5.0); Potassium 4.5 mmoL/L (3.5-5.1); Sodium 141 mmol/L (136-145)
[2025-06-01 11:41] LABS: Alanine Aminotransferase 13 U/L (12-78); Albumin/Globulin Ratio 1.4 (1.1-1.8); Alkaline Phosphatase 102 U/L (38-126); Anion Gap 14.5 mEq/L (5-15); Aspartate Amino Transferase 30 U/L (14-36); Bilirubin,Total 1.2 mg/dl (0.2-1.3); Blood Urea Nitrogen 16 mg/dl (7-17); Carbon Dioxide 25 mmol/L (22.0-30.0); Creatinine,Serum 1.20 mg/dl (0.52-1.04); Estimated Glomerular Filt Rate 46 ml/min (>60); GFR (African American) 56 ML/MIN (>60); Globulin 3.3 g/dL (1.3-3.2); Total Protein,Serum 7.8 g/dl (6.3-8.2)
[2025-06-01 11:42] LABS: Calcium 10.1 mg/dl (8.4-10.2); Glucose 98 mg/dl (74-100)
== END 2025-06-01 23:59 | disposition home or self-care (01) ==
LOC: LAB 11:03
PROVIDERS: PCP Family Medicine; Visit Provider Obstetrics & Gynecology
DX: Z00.00 Encounter for general adult medical examination without abnormal findings (principal)
CPT/HCPCS: 36415; 80053

== ENCOUNTER 2025-07-31 07:31 | Outpatient (CLI) | payer OTHER, SELFPAY ==
--- OUTSIDE RECORDS SUMMARY | 2024-02-04 11:30 | XMS_ITS ---
Author Organization [facility] Address [address] [place] [id number] Care Team Providers Care Web Marketing Analyst Name Role Phone Stevenson Umang Primary Care Provider Michael Luna [phone] Allergies Allergen (clinical drug ingredient) Drug/Non Drug Allergy documented on EMR Reaction Allergy Type Onset Date Status naproxen Naproxen Unknown Drug Allergy Active REASON FOR VISIT discuss medication/kidney function Medications Medication SIG (Take, Route, Frequency, Duration) Notes Start Date End Date Status Kerendia 10 MG 1 tablet Orally Once a day; Duration: 90 days Active Pravastatin Sodium 40 MG 1 tab(s) orally once a day (at bedtime); Duration: 90 days Active Vitamin D3 50 MCG (1999 UT) 1 tab(s) ora lly once a day; Duration: 90 days Active Losartan Potassium 50 MG 1 tablet Orally Once a day; Duration: 90 days 02/04/2024 Active Farxiga 10 MG 1 tablet Orally Once a day 06/08/2023 Active Synthroid 125 MCG 1 tab(s) Orally once a day; Duration: 90 days Active Topiramate 50 MG 3 tab(s) orally once daily; Duration: 90 days Active Vital Signs Blood pressure systolic 138 mm Hg 02/04/20 24 Blood pressure diastolic 88 mm Hg 024 Heart Rate 63 /min 02/04/2024 Height 64.50 in 02/04/2024 Weight 246.8 lbs 02/04/2024 BMI 41.70 kg/m2 02/04/2024 Encounters Encounter Location Date Provider Diagnosis Abhi [address] [facility] [address] [facility] [address] [place] [id number] 02/04/2024 Umang Gamino Stage 3a chronic kidney disease (CKD) N18.31 Assessments Encounter Date Diagnosis (ICD Code) Assessment Notes Treatment Notes Treatment Clinical Notes Section Notes 02/04/2024 Stage 3a chronic kidney disease (CKD) (ICD-10 - N18.31) Plan Of Treatment Medication Medication Name Sig Start Date Stop Date Notes Kerendia 10 MG 1 tablet Orally Once a day; Duration: 90 days Losartan Potassium 50 MG 1 tablet Orally Once a day; Duration: 90 days 02/04/2024 Farxiga 10 MG 1 tablet Orally Once a day 06/08/2023 Next Appt Details Follow Up: 2 Months, Reason: Provider Name:Umang Espinoza ry, 07/31/2025 04:15:00 PM, [address] [facility] [address] [facility], [address], [place], [id number], Progress Notes * Kathy BOUDREAUX CDOB:1970 ( 55 yo F)Acc No.[id number]:02/04/2024 Progress Notes Patient: Kathy RIOS Provider: Jessica Gamino M.D. :1970 A ge:53 Y S ex:Female Date:02/04/2024 Address:[address] [place], [place] [id number] Subjective: * Chief Complaints: * 1 . Discuss medication/kidney function. * HPI: H PI: 53 year old female presents with c/o Here for follow up on:?01/28/2024 lab results, see printed docs. Pt states that GFR and creatinine have worsened since starting on Farxiga and Kerendia. Pt would like to stop both m edications . * ROS: D ERMATOLOGY: no R kurt. n o H franklyn. G ASTROENTEROLOGY: no N ausea. n o V omiting. U ROLOGY: no D ifficulty urinating. n o B lood in urine. * Medical History: H ypothyroidism, Hyperlipidemia, Vitamin D Deficiency, L-spine MRI February 2016, normal, MRI in 2019 abnormal, Migraine headache, Chronic kidney disease, Lumbar Disc Disease, Osteoarthritis. * Surgical History: C holecystectomy 1993, Total Hysterectomy 1998, Appendectomy 1998, Wrist , LT Shoulder x 2 , RT Knee 04/2013, LT Knee Arthroscopy, Dr. Ramirez 2017. * Hospitalization/Major Diagno stic Procedure: U TI- [facility] 02/2009, UTI- [facility] 03/01/2010, Lightheaded- [facility] 03/03/2010, UTI- [facility] 01/2011, Fell at Work- [facility] 02/21/2012, Rib Pain- [facility] 04/04/2012, RT Knee, Fall- [facility] 01/22/2013, UTI- [facility] 01/21/2014, Migraine- [facility] 11/2014, Back and Chest Pain- [facility] 02/2016, Headache, Back Pain- [facility] 06/11/2017, LT Knee and Back, Fall- [facility] 09/2017, LT Thumb Cut- [facility] 11/2018. * Family History: F ather: alive, Heart attack- open heart surgery. M other: alive, CHF, diabetes, HTN. P aternal Grand Father: . P aternal Grand Mother: . M aternal Grand Father: . M aternal Grand Mother: . 2 brother(s) , 1 sister(s) . 2 son(s) . . * Social History: C URRENT TOBACCO USE S moking Status: Patient does NOT smoke. C affeine: yes, frequency:daily. Home smoke detector use: no. Past smoking status: no, Smoking status: Does not smoke. * Medications: T aking Kerendia 10 MG Tablet 1 tablet Orally Once a day , Taking Vitamin D3 50 MCG (2000 UT) Tablet 1 tab(s) orally once a day , Taking Pravastatin Sodium 40 MG Tablet 1 tab(s) orally once a day (at bedtime) , Taking Farxiga 10 MG Tablet 1 tablet Orally Once a day , Taking Topiramate 50 MG Tablet 3 tab(s) orally once daily , Taking Synthroid 125 MCG Tablet 1 tab(s) Orally once a day , Discontinued Ibuprofen 800 MG Tablet 1 tab(s) orally 3 times a day as needed , Medication List reviewed and reconciled with the patient * Allergies: N aproxen. Objective: * Vitals: W t:246.8, Temp:98.0, BP:138/88, HR:63, Nurse:kk, Ht: 64.50, BMI:41.70. * Examination: G eneral Examination: General Appearance: N AD. H eart: R SR. L ungs:?clear to auscultation. L abs reviewed, eGFR 39. Assessment: * Assessment: 1. S tagmckinley 3a chronic kidney disease (CKD) - N18.31 (Primary) Plan: * Treatment: * Follow Up: 2 Months * Images: Billing Information: * Visit Code: 50408 Office Visit, Est Pt., Level 3. * Procedure Codes: * Electronic signature of Inessa Gamino MD on 07/31/2025 at 07:33 AM EST Sign off status: Pending * Provider: Jessica Gamino M.D. Date: 0 02/04/2024 Generated for Jonoi servando/Ellen/eTransmitting on: 1 10/01/2024 07:33 AM EST History and Physical Notes * HPI (History of Present Illness) Category Sub-Category Detail Notes Category Not es HPI Here for follow up on: 4 lab results, see printed docs. Pt states that GFR and creatinine have worsened since starting on Farxiga and Kerendia. Pt would like to stop both medications Examination Category Sub-Category Detail Notes Category Not es General Examination Heart: RSR Labs rev iewed, eGFR 39 Lungs: clear to auscultatio n General Appearance: NAD
--- OUTSIDE RECORDS SUMMARY | 2024-03-17 09:45 | XMS_ITS ---
Author Organization [facility] Address [address] [place] [id number] Care Team Providers Care Ui Programmer Name Role Phone Umang Gamino Primary Care Provider [phone] Michael Luna [phone] REASON FOR VISIT f/u on shingles Encounters Encounter Location Date Provider Diagnosis [facility] [address] [place] [id number] 03/17/2024 Umang Gamino Plan Of Treatment Next Appt Details Provider Name:Umang Espinoza ry, 07/31/2025 04:15:00 PM, [address], [address], [place], [id number], Progress Notes * Kathy BOUDREAUX CDOB:1970 ( 55 yo F)Acc No.[id number]:03/17/2024 Progress Notes Patient: Marek DEVONTE Kathy Marcial Provider: Jessica Gamino M.D. :1970 A ge:53 Y S ex:Female Date:03/17/2024 Address:[address] [place] [id number] Subjective: * Chief Complaints: * 1 . F/u on shingles. * Medical History: Objective: * Vitals: Assessment: Plan: * Treatment: * Images: Billing Information: * Visit Code: * Procedure Codes: * Electronic signature of Inessa Gamino MD on 07/31/2025 at 07:33 AM EST Sign off status: Pending * Provider: Jessica Gamino M.D. Date: 0 03/17/2024 Generated for Meghan al/Ellen/Augustine on: 1 10/01/2024 07:33 AM EST
--- OUTSIDE RECORDS SUMMARY | 2024-10-20 11:45 | XMS_ITS ---
Author Organization [facility] Address [address] [place] [id number] Care Team Providers Care Stoker Erector And Servicer Name Role Phone Umang Gamino Primary Care Provider Michael Luna [phone] Allergies Allergen (clinical drug ingredient) Drug/Non Drug Allergy documented on EMR Reaction Allergy Type Onset Date Status naproxen Naproxen Unknown Drug Allergy Active Results Component Value Reference Range Notes VITAMIN D, 25-HYDROXY Reviewed date:02/04/2025 09:07:07 AM Interpretation: Performing Lab: Notes/Report: H-TSH Reviewed date:10/23/2024 11:45:38 AM Interpretation:5.42 Performing Lab: Notes/Report: TSH 5.42 0.465-4.68 uIU/mL H-Microalbumine/Creatinine Reviewed date:10/23/2024 11:45:38 AM Interpretation: Performing Lab: Notes/Report: UCREAT 83 Not Estab. mg/dL Random urine reference range not established. 24 hour urine samples recommended. MICROALB < 6.000 0-16.7 mg/L MALBCREAT Unable to calculate Urine Microalbumin/Creatinine Ratio due to the less than value for Urine Microalbumin. H-Lipid Panel Reviewed date:10/23/2024 11:45:38 AM Interpretation:dldl 95 Performing Lab: Notes/Report: Patient Fasting? Y TRIG 70 30-150 mg/dl CHOL 188 140-200 mg/dl DLDL 95.17 100-129 mg/dL VLDL 14 0-40 mg/dL HDL 58 40-60 mg/dl CHLHDL 3.2 1-3.5 H-CMP Reviewed date:10/23/2024 11:45:38 AM Interpretation:cl 109, bun 19, Cr 1.2, gfr 46, a/g 1.9 Performing Lab: Notes/Report: NA 142 136-145 mmol/L K 4.3 3.5-5.1 mmoL/L CL 109 98-107 mmol/L CO2 25 22.0-30.0 mmol/L GAP 12.3 5-15 mEq/L BUN 19 7-17 mg/dl CREATT 1.20 0.52-1.04 mg/dl GFRAA 56 >60 ML/MIN EGFR 46 >60 ml/min GLU 84 74-100 mg/dl CA 9.7 8.4-10.2 mg/dl BILIT 0.8 0.2-1.3 mg/dl AST 25 14-36 U/L ALT 17 12-78 U/L TP 6.7 6.3-8.2 g/dl ALB 4.4 3.5-5.0 g/dl GLOB 2.3 1.3-3.2 g/dL AGRATIO 1.9 1.1-1.8 ALP 88 38-126 U/L H-PHOS Reviewed date:10/23/2024 11:45:38 AM Interpretation:Normal Performing Lab: Notes/Report: PHOS 3.6 2.5-4.5 mg/dl H-T4 free Reviewed date:10/23/2024 11:45:38 AM Interpretation:Normal Performing Lab: Notes/Report: T4F 1.35 0.78-2.19 ng/dl REASON FOR VISIT ckup & refills Medications Medication SIG (Take, Route, Frequency, Duration) Notes Start Date End Date Status Synthroid 125 MCG 1 tab(s) Orally once a day; Duration: 90 days Active Vitamin D3 50 MCG (1999) 1 tab(s) ora lly once a day; Duration: 90 days Active Pravastatin Sodium 40 mg TAKE ONE TABLET BY MOUTH EVERY DAY AT BEDTIME; Duration: 90 Active Topiramate 50 MG 3 tab(s) orally once daily; Duration: 90 days Active Losartan Potassium 50 MG 1 tablet Orally Once a day; Duration: 90 days Active Kerendia 10 MG 1 tablet Orally Once a day; Duration: 90 days Active Farxiga 10 MG 1 tablet Orally Once a day; Duration: 90 days Active Vital Signs Blood pressure systolic 130 mm Hg 10/21/19 25 Blood pressure diastolic 82 mm Hg 025 Heart Rate 69 /min 10/20/2024 Height 64.50 in 10/20/2024 Weight 234.8 lbs 10/20/2024 BMI 39.68 kg/m2 10/20/2024 130/82 Encounters Encounter Location Date Provider Diagnosis [facility] [address] [facility] [address] [facility] [address] [place] [id number] 10/20/2024 Umang Gamino Acquired hypothyroid ism E03.9 ; Dyslipidemia E78.5 ; Vitamin D deficiency E55.9 and Stage 3a chronic kidney disease (CKD) N18.31 Assessments Encounter Date Diagnosis (ICD Code) Assessment Notes Treatment Notes Treatment Clinical Notes Section Notes 10/20/2024 Acquired hypothyroidism (ICD-10 - E03.9) 10/20/2024 Dyslipidemia (ICD-10 - E78.5) 10/20/2024 Vitamin D deficiency (ICD-10 - E55.9) 10/20/2024 Stage 3a chronic kidney disease (CKD) (ICD-10 - N18.31) Plan Of Treatment Medication Medication Name Sig Start Date Stop Date Notes Synthroid 125 MCG 1 tab(s) Orally once a day; Duration: 90 days Kerendia 10 MG 1 tablet Orally Once a day; Duration: 90 days Next Appt Details Follow Up: 6 Months, Reason: Provider Name:Umang Espinoza , 07/31/2025 04:15:00 PM, [address] [facility] [address] [facility], [address], [place], [id number], Progress Notes * Kathy BOUDREAUX CDOB:1970 ( 55 yo F)Acc No.[id number]:10/20/2024 Progress Notes Patient: Marek DEVONTEValisabel Marcial Provider: Jessica Gamino M.D. :1970 A ge:54 Y S ex:Female Date:10/20/2024 Address:[address] [place] [address] [id number] Subjective: * Chief Complaints: * 1 . Ckup & refills. * HPI: E ndocrinology: 54 year old female presents with c/o Hypothyroidism P t here to f/u. Pt states she is doing well and does not have any concerns. C ardiology: c/o Hyperlipidemia P t is not fasting today. * ROS: D ERMATOLOGY: no R kurt. [...] * Hospitalization/Major Diagno stic Procedure: U TI- [facility] 02/2009, UTI- [facility] 03/01/2010, Lightheaded- [facility] 03/03/2010, UTI- [facility] 01/2011, Fell at Work- [facility] 02/21/2012, Rib Pain- [facility] 04/04/2012, RT Knee, Fall- [facility] 01/22/2013, UTI- [facility] 01/21/2014, Migraine- [facility] 11/2014, Back and Chest Pain- [facility] 02/2016, Headache, Back Pain- [facility] 06/11/2017, LT Knee and Back, Fall- [facility] 09/2017, LT Thumb Cut- [facility] 11/2018. * Family History: F ather: [...] Does not smoke. * Medications: T aking Vitamin D3 50 MCG (2000 UT) Tablet 1 tab(s) orally once a day , Taking Synthroid 125 MCG Tablet 1 tab(s) Orally once a day , Taking Farxiga 10 MG Tablet 1 tablet Orally Once a day , Taking Losartan Potassium 50 MG Tablet 1 tablet Orally Once a day , Taking Kerendia 10 MG Tablet 1 tablet Orally Once a day , Taking Topiramate 50 MG Tablet 3 tab(s) orally once daily , Taking Pravastatin Sodium 40 mg Tablet TAKE ONE TABLET BY MOUTH EVERY DAY AT BEDTIME , Medication List reviewed and reconciled with the patient * Allergies: N aproxen. Objective: * Vitals: W t:234.8, Temp:98.0, BP:130/82, HR:69, Nurse:sharad, Ht: 64.50, BMI:39.68. 130/82. * Examination: E ndocrinology: General Appearance: N AD. H EENT: u nremarkable.?Heart: R SR. L ungs: c lear to auscultation. E xtremities: n o leg edema.? Assessment: * Assessment: 1. A cquired hypothyroidism - E03.9 (Primary) 2 . D yslipidemia - E78.5? 3. V itamin D deficiency - E55.9 4 . S tage 3a chronic kidney disease (CKD) - N18.31 Plan: * Treatment: Value Reference Range T SH 5.42 H 0.465-4.68 - uIU/mL * Sherry Nagel 10/23/2024 11:4 5:28 AM > See phone encounter ?LAB: H-T4 free (Collection Date & Time - 10/22/2024 06:59 AM)?Normal* Value Reference Range T 4F 1.35 0.78-2.19 - ng/dl * Sherry Nagel 10/23/2024 11:4 5:28 AM > See phone encounter 2.?Dyslipidemia?LAB: H-Lipid Panel (Collection Date & Time - 10/22/2024 06:59 AM)?dldl 95* Value Reference Range T RIG 70 30-150 - mg/dl * C HOL 188 140-200 - mg/dl * D LDL 95.17 L 100-129 - mg/dL * V LDL 14 0-40 - mg/dL * H DL 58 40-60 - mg/dl * C HLHDL 3.2 1-3.5 - * Sherry Nagel 10/23/2024 11:4 5:28 AM > See phone encounter ?LAB: H-CMP (Collection Date & Time - 10/22/2024 06:59 AM)?cl 109, bun 19, Cr 1.2, gfr 46, a/g 1.9* Value Reference Range N A 142 136-145 - mmol/L * K 4.3 3.5-5.1 - mmoL/L * C L 109 H 98-107 - mmol/L * C O2 25 22.0-30.0 - mmol/L * G AP 12.3 5-15 - mEq/L * B UN 19 H 7-17 - mg/dl * C REATT 1.20 H 0.52-1.04 - mg/dl * G FRAA 56 L >60 - ML/MIN * E GFR 46 L >60 - ml/min * G JONN 84 74-100 - mg/dl * C A 9.7 8.4-10.2 - mg/dl * B ILIT 0.8 0.2-1.3 - mg/dl * A ST 25 14-36 - U/L * A LT 17 12-78 - U/L * T P 6.7 6.3-8.2 - g/dl * A LB 4.4 3.5-5.0 - g/dl * G LOB 2.3 1.3-3.2 - g/dL * A GRATIO 1.9 H 1.1-1.8 - * A LP 88 38-126 - U/L * Sherry Nagel 10/23/2024 11:4 5:28 AM > See phone encounter 3.?Vitamin D deficiency?LAB: VITAMIN D, 25-HYDROXY (Collection Date & Time - 10/22/2024)* Chrissy Esposito 02/04/2025 09: 07:01 AM EDT > see duplicate order 4.?Stage 3a chronic kidney disease (CKD)? Refill Kerendia Tablet, 10 MG, 1 tablet, Orally, Once a day, 90 days, 90 Tablet, Refills 1.?LAB: H-Microalbumine/Creatinine (Collection Date & Time - 10/22/2024 06:59 AM)* Value Reference Range M ICROALB < 6.000 0-16.7 - mg/L * U CREAT 83 Not Estab. - mg/dL * RobeSherry tate 10/23/2024 11:4 5:28 AM > See phone encounter ?LAB: H-CMP (Collection Date & Time - 10/22/2024 06:59 AM)?cl 109, bun 19, Cr 1.2, gfr 46, a/g 1.9* Value Reference Range N A 142 136-145 - mmol/L * K 4.3 3.5-5.1 - mmoL/L * C L 109 H 98-107 - mmol/L * C O2 25 22.0-30.0 - mmol/L * G AP 12.3 5-15 - mEq/L * B UN 19 H 7-17 - mg/dl * C REATT 1.20 H 0.52-1.04 - mg/dl * G FRAA 56 L >60 - ML/MIN * E GFR 46 L >60 - ml/min * G JONN 84 74-100 - mg/dl * C A 9.7 8.4-10.2 - mg/dl * B ILIT 0.8 0.2-1.3 - mg/dl * A ST 25 14-36 - U/L * A LT 17 12-78 - U/L * T P 6.7 6.3-8.2 - g/dl * A LB 4.4 3.5-5.0 - g/dl * G LOB 2.3 1.3-3.2 - g/dL * A GRATIO 1.9 H 1.1-1.8 - * A LP 88 38-126 - U/L * Sherry Nagel 10/23/2024 11:4 5:28 AM > See phone encounter ?LAB: H-PHOS (Collection Date & Time - 10/22/2024 06:59 AM)?Normal* Value Reference Range P HOS 3.6 2.5-4.5 - mg/dl * Sherry Nagel 10/23/2024 11:4 5:28 AM > See phone encounter * Procedure Codes: 3 075F SYST BP GE 130 - 139MM HG, 3079F DIAST BP 80-89 MM HG * Follow Up: 6 Months * Images: Billing Information: * Visit Code: 45978 Office Visit, Est Pt., Level 4. * Procedure Codes: 3075F SYST BP GE 130 - 139MM HG. 3079F DIAST BP 80-89 MM HG. * Electronic signature of Inessa Gamino MD on 07/31/2025 at 07:33 AM EST Sign off status: Pending * Provider: Jessica Gaimno M.D. Date: 0 10/20/2024 Generated for Meghan al/Ellen/Brittonitting on: 1 10/01/2024 07:33 AM EST History and Physical Notes * HPI (History of Present Illness) Category Sub-Category Detail Notes Category Not es Endocrinology Hypothyroidism Pt here to f/u. Pt states she is doing well and does not have any concerns Cardiology Hyperlipidemia Pt is not fasting today Examination Category Sub-Category Detail Notes Category Not es Endocrinology HEENT: unremarkable Heart: RSR Lungs: clear to auscultatio n Extremities: no leg edema General Appearance: NAD
--- OUTSIDE RECORDS SUMMARY | 2025-02-02 06:30 | XMS_ITS ---
[facility] [address] [place] [id number] Care Team Providers Care Campaign Marketing Manager Name Role Phone Umang Gamino Primary Care Provider [phone] Michael Luna [phone] Allergies Allergen (clinical drug ingredient) Drug/Non Drug Allergy documented on EMR Reaction Allergy Type Onset Date Status naproxen Naproxen Unknown Drug Allergy Active Results Component Value Reference Range Notes Urinalysis - Inhouse Reviewed date:02/02/2025 04:37:34 PM Interpretation: Performing Lab: Notes/Report: Color/Clarity yellow/cloudy Leuk 1+ Nitrite neg Urobili 3.2 Protein neg pH 7.0 Blood trace-intact Sp. Gr. 1.015 Ketone neg Bili neg Gluc 3+ TEN-UTI panel Reviewed date:02/04/2025 09:00:36 AM Interpretation:Abnormal Performing Lab: Notes/Report: Abnormal REASON FOR VISIT poss UTI Medications Medication SIG (Take, Route, Frequency, Duration) Notes Start Date End Date Status Farxiga 10 mg TAKE ONE TABLET BY M OUTH EVERY DAY; Duration: 90 Active Losartan Potassium 50 mg TAKE ONE TABLET BY MOUTH EVERY DAY; Duration: 90 Active Synthroid 125 MCG 1 tab(s) Orally once a day; Duration: 90 days Active Kerendia 10 MG 1 tablet Orally Once a day; Duration: 90 days Active Pravastatin Sodium 40 mg TAKE ONE TABLET BY MOUTH EVERY DAY AT BEDTIME; Duration: 90 Active Macrodantin 100 MG 1 capsule at bedtime with food or milk Orally Once a day; Duration: 10 days 02/02/2025 Active Topiramate 50 MG 3 tab(s) orally once daily; Duration: 90 days Active Vitamin D3 50 MCG (1999) 1 tab(s) ora lly once a day; Duration: 90 days Active Vital Signs Blood pressure systolic 132 mm Hg 02/03/20 25 Blood pressure diastolic 78 mm Hg 025 Heart Rate 67 /min 02/02/2025 Height 64.50 in 02/02/2025 Weight 248 lbs 02/02/2025 BMI 41.91 kg/m2 02/02/2025 Encounters Encounter Location Date Provider Diagnosis [facility] [address] [facility] [address] [facility] [address] [place] [id number] 02/02/2025 Umang Gamino Acute UTI N39.0 Assessments Encounter Date Diagnosis (ICD Code) Assessment Notes Treatment Notes Treatment Clinical Notes Section Notes 02/02/2025 Acute UTI (ICD-10 - N39.0) Plan Of Treatment Medication Medication Name Sig Start Date Stop Date Notes Macrodantin 100 MG 1 capsule at bedtime with food or milk Orally Once a day; Duration: 10 days 02/02/2025 Next Appt Details Follow Up: via phone to repo rt test results, Reason: Provider Name:Umang Espinoza ry, 07/31/2025 04:15:00 PM, [address] [facility] [address] [facility], [address], [place], [phone], Progress Notes * Kathy BOUDREAUX CDOB:1970 ( 55 yo F)Acc No.[id number]:02/02/2025 Progress Notes Patient: Kathy RIOS Provider: Jessica Gamino M.D. :1970 A ge:54 Y S ex:Female Date:02/02/2025 Address:[address] [place], [place] [id number] Subjective: * Chief Complaints: * 1 . poss UTI. * HPI: U rology: 54 year old female presents with c/o burning sensation P t complains of burning with urination for one day.. c/o Pressure. * ROS: C ARDIOLOGY: no D izziness. n o C hest pain. D ERMATOLOGY: no R kurt. n o H franklyn. G ASTROENTEROLOGY: no N ausea. n o V omiting. * Medical History: H ypothyroidism, Hyperlipidemia, Vitamin D Deficiency, L-spine MRI February 2016, normal, MRI in 2019 abnormal, Migraine headache, Chronic kidney disease, Lumbar Disc Disease, Osteoarthritis. * Surgical History: C holecystectomy 1993, Total Hysterectomy 1998, Appendectomy 1998, Wrist , LT Shoulder x 2 , RT Knee 04/2013, LT Knee Arthroscopy, Dr. Ramirez 2017. * Hospitalization/Major Diagno stic Procedure: U TI- [facility] 02/2009, UTI- [facility] 03/01/2010, Lightheaded- [facility] 03/03/2010, UTI- [facility] 01/2011, Fell at Work- [facility] 02/21/2012, Rib Pain- [facility] 04/04/2012, RT Knee, Fall- [facility] 01/22/2013, UTI- [facility] 01/21/2014, Migraine- [facility] 11/2014, Back and Chest Pain- [facility] 02/2016, Headache, Back Pain- [facility] 06/11/2017, LT Knee and Back, Fall- [facility] 09/2017, LT Thumb Cut- [facility] 11/2018. * Family History: F ather: alive, Heart attack- open heart surgery. M other: alive, CHF, diabetes, HTN. P aternal Grand Father: . P aternal Grand Mother: . M aternal Grand Father: . M aternal Grand Mother: . 2 brother(s) , 1 sister(s) . 2 son(s) . . * Social History: C URRENT TOBACCO USE: No . C affeine: yes, frequency:daily. Home smoke detector use: no. Past smoking status: no, Smoking status: Does not smoke. * Medications: T aking Vitamin D3 50 MCG (1999 UT) Tablet 1 tab(s) orally once a day , Taking Topiramate 50 MG Tablet 3 tab(s) orally once daily , Taking Pravastatin Sodium 40 mg Tablet TAKE ONE TABLET BY MOUTH EVERY DAY AT BEDTIME , Taking Synthroid 125 MCG Tablet 1 tab(s) Orally once a day , Taking Kerendia 10 MG Tablet 1 tablet Orally Once a day , Taking Farxiga 10 mg Tablet TAKE ONE TABLET BY MOUTH EVERY DAY , Taking Losartan Potassium 50 mg Tablet TAKE ONE TABLET BY MOUTH EVERY DAY , Medication List reviewed and reconciled with the patient * Allergies: N aproxen. Objective: * Vitals: W t: 248, Temp: 98.2, BP: 132/78, HR: 67, Nurse: beck, Ht: 64.50, BMI:41.91. * Examination: G eneral Examination: General Appearance: N AD. H eart: R SR. L ungs:?clear to auscultation. B ack: n o CVA tenderness. Assessment: * Assessment: 1. A cute UTI - N39.0 (Primary) Plan: * Treatment: Value Reference Range C olor/Clarity yellow/cloudy * L euk 1+ * N itrite neg * U robili 3.2 * P rotein neg * p H 7.0 * B lood trace-intact * S p. Gr. 1.015 * K etone neg * B hemant neg * G nito 3+ * Herlinda Whitten 02/02/2025 12:09: 41 PM EDT > Provider reviewed results while patient in office. ?LAB: TEN-UTI panel (Collection Date & Time - 02/02/2025)?Abnormal* CateChrissy 02/04/2025 09: 00:29 AM EDT > see TE * Procedure Codes: 8 1002 Urinalysis, no micro, 1036F TOBACCO NON-USER, G8783 BP SCR PRFRM RCMDD DEFIND SCR INTVL, G8752 MOST RECENT SYSTOLIC BP < 140MM HG, G8754 MOST RECENT DIASTOLIC BP < 90MM HG * Follow Up: v ia phone to report test results * Images: Billing Information: * Visit Code: 10113 Office Visit, Est Pt., Level 3. * Procedure Codes: 16264 Urinalysis, no micro. 1036F TOBACCO NON-USER. G8783 BP SCR PRFRM RCMDD DEFIND SCR INTVL. G8752 MOST RECENT SYSTOLIC BP < 140MM HG. G8754 MOST RECENT DIASTOLIC BP < 90MM HG. * Electronic signature of Inessa Gamino MD on 07/31/2025 at 07:34 AM EST Sign off status: Pending * Provider: Jessica Gamino M.D. Date: 0 02/02/2025 Generated for Meghan al/Ellen/Brittonitting on: 1 10/01/2024 07:34 AM EST History and Physical Notes * HPI (History of Present Illness) Category Sub-Category Detail Notes Category Not es Urology burning sensation Pt complains o f burning with urination for one day. Pressure Examination Category Sub-Category Detail Notes Category Not es General Examination Heart: RSR Lungs: clear to auscultatio n General Appearance: NAD Back: no CVA tenderness
--- OUTSIDE RECORDS SUMMARY | 2025-07-29 04:12 | XMS_ITS ---
Author Organization [facility] Address [address] [place] [id number] Care Team Providers Care Distributor Sales Consultant Name Role Phone Umang Gamino Primary Care Provider [phone] Michael Luna [phone] REASON FOR VISIT Lab Order Encounters Encounter Location Date Provider Diagnosis [facility] [address] [place] [id number] 07/29/2025 Umang Gamino Acquired hypothyroid ism E03.9 and Vitamin D deficiency E55.9 Assessments Encounter Date Diagnosis (ICD Code) Assessment Notes Treatment Notes Treatment Clinical Notes Section Notes 07/29/2025 Acquired hypothyroidism (ICD-10 - E03.9) 07/29/2025 Vitamin D deficiency (ICD-10 - E55.9) Plan Of Treatment Pending Test Test Name Order Date H-TSH 07/29/2025 H-VITAMIN D 07/29/2025 H-T4 free 07/29/2025 Next Appt Details Provider Name:Umang Espinoza ry, 07/31/2025 04:15:00 PM, [address], [address], [place], [id number], Progress Notes * Kathy BOUDREAUX CDOB:1970 ( 55 yo F)Acc No.[id number]:07/29/2025 Patient: Kathy RIOS :1970 A ge:55 Y S ex:Female Address:[address] [place] [address] [place] [address] Subjective: * Chief Complaints: * L ab Order * Medical History: * Surgical History: * Hospitalization/Major Diagno stic Procedure: * Medications: Objective: * Vitals: * Physical Examination: Assessment: * Assessment: 1. A cquired hypothyroidism - E03.9 (Primary) 2 . V itamin D deficiency - E55.9 Plan: * Treatment: 2. V itamin D deficiency L AB: H-VITAMIN D * Procedure Codes: * true * Date: Generated for Meghan al/Ellen/eTlokismitting on: 10/01/2024 07:33 AM EST
--- OUTSIDE RECORDS SUMMARY | 2025-07-31 07:34 | XMS_ITS | Patient Health Record ---
[facility] [address] [place] [id number] Care Team Providers Care Enterprise Application Architect Name Role Phone Umang Gamino Primary Care Provider Michael Luna [phone] Allergies Allergen (clinical drug ingredient) Drug/Non Drug [...] Performing Lab: Notes/Report: T4F 1.35 0.78-2.19 ng/dl Urinalysis - Inhouse Reviewed date:02/02/2025 04:37:34 PM Interpretation: Performing Lab: Notes/Report: Color/Clarity yellow/cloudy Leuk 1+ Nitrite neg Urobili 3.2 Protein neg pH 7.0 Blood trace-intact Sp. Gr. 1.015 Ketone neg Bili neg Gluc 3+ TEN-UTI panel Reviewed date:02/04/2025 09:00:36 AM Interpretation:Abnormal Performing Lab: Notes/Report: Abnormal H-VITAMIN D Reviewed date:10/23/2024 11:45:38 AM Interpretation:Normal Performing Lab: Notes/Report: TVITD 54.7 30-100 ng/mL Deficient <20 ng/mL Insufficient 20-30 ng/mL Sufficient 30-100 ng/mL Potential Toxicity >100 ng/mL Mammogram Reviewed date:03/23/2025 02:29:19 PM Interpretation:Negative Performing Lab: Notes/Report: Negative result Negative Medications Medication SIG (Take, Route, Frequency, Duration) Notes Start Date End Date Status Synthroid 125 MCG 1 tab(s) Orally once a day; Duration: 90 days Active Topiramate 50 MG 3 tab(s) orally once daily; Duration: 90 days Active Farxiga 10 mg 1 tablet orally once a day; Duration: 90 days Active Losartan Potassium 50 mg 1 tablet orally once a day; Duration: 90 days Active Macrodantin 100 MG 1 capsule at bedtime with food or milk Orally Once a day; Duration: 10 days 02/02/2025 Active Vitamin D3 50 MCG (2000 UT) 1 tab(s) ora lly once a day; Duration: 90 days Active metroNIDAZOLE 500 MG [address] Or[address] Thr ee times a day; Duration: 7 days 02/04/2025 Active Kerendia 10 mg 1 tab orally daily; Duration: 14 days Active Pravastatin Sodium 40 mg 1 tablet orally daily; Duration: 14 days Active Immunizations Vaccine Route Administration Date Status Comme nts COVID 19 Moderna Unknown 08/12/2020 Administered COVID 19 Moderna Unknown 09/15/2020 Administered COVID 19 Moderna Unknown 09/15/2020 Administered COVID 19 Moderna Unknown 06/14/2021 Administered Problems Problem Type SNOMED Code ICD Code Onset Dates Problem Status W/U Status Risk Notes Problem Hypothyroidism (35736098) Hypothyroidism, unspecified (E03.9) Active confirmed Problem Sinusitis (81379590) Sinusitis (J32.9) Active c onfirmed Problem Sciatica (93386337) Sciatica (M54.30) Active co nfirmed Problem Vitamin D deficiency (27449129) Vitamin D deficiency (E55.9) Active confirmed Problem Abnormal findings on diagnostic imaging of breast (137868102) Abnormal mammogram of both breasts (R92.8) Active confirmed Problem 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) 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) Active confirmed Problem Pure hypercholesterolemia (261484731) Pure hypercholesterolemia (E78.0) Active confirmed Problem Chronic pain (31313109) Other chronic pain (G89.29) Active confirmed Problem Acquired hypothyroidism (463638203) Acquired hypothyroidism (E03.9) Active confirmed Problem Migraine (00734031) Migraine wit hout status migrainosus, not intractable, unspecified migraine type (G43.909) Active confirmed Problem Dyslipidemia (482078929) Dyslipidemia (E78.5) Active confirmed Problem Leukopenia (07858730) Leukopenia , unspecified type (D72.819) Active confirmed Problem Sciatic nerve lesion (664289870) Piriformis syndrome, right (G57.01) Active confirmed Problem Sciatica (74658069) Acute midlin e low back pain with right-sided sciatica (M54.41) Active confirmed Problem Chronic kidney disease stage 3A (disorder) (168968228) Stage 3a chronic kidney disease (CKD) (N18.31) Active confirmed Vital Signs Heart Rate 67 /min 02/02/2025 Blood pressure diastolic 78 mm Hg 02/02/2025 Height 64.50 in 02/02/2025 Blood pressure systolic 132 mm Hg 02/02/2025 Weight 248 lbs 02/02/2025 BMI 41.91 kg/m2 02/02/2025 Encounters Encounter Location Date Provider Diagnosis [facility] [address] [place], [place] [id number] 10/20/2024 Umang [place] Acquired hypothyroid ism E03.9 ; Dyslipidemia E78.5 ; Vitamin D deficiency E55.9 and Stage 3a chronic kidney disease (CKD) N18.31 [facility] [address] [place], [place] [id number] 02/02/2025 Umang [place] Acute UTI N39.0 [facility] [address] [place], [place] [id number] 10/23/2024 Umang [place] [facility] [address] [place], [place] [id number] 02/04/2025 Umang [place] [facility] [address] [place], [place] [id number] 02/23/2025 Umang [place] Screening for breast cancer Z12.39 [facility] [address] [place], [place] [id number] 07/28/2025 Umang [place] Stage 3a chronic kid barbie disease (CKD) N18.31 [facility] [address] [facility] [address] [place] [id number] 07/29/2025 Umang [place] Acquired hypothyroid ism E03.9 and Vitamin D deficiency E55.9 Assessments Encounter Date Diagnosis (ICD Code) Assessment Notes Treatment Notes Treatment Clinical Notes Section Notes 02/02/2025 Acute UTI (ICD-10 - N39.0) 07/29/2025 Vitamin D deficiency (ICD-10 - E55.9) 07/29/2025 Acquired hypothyroidism (ICD-10 - E03.9) 07/28/2025 Stage 3a chronic kidney disease (CKD) (ICD-10 - N18.31) 02/23/2025 Screening for breast cancer (ICD-10 - Z12.39) 10/20/2024 Acquired hypothyroidism (ICD-10 - E03.9) 10/20/2024 Dyslipidemia (ICD-10 - E78.5) 10/20/2024 Vitamin D deficiency (ICD-10 - E55.9) 10/20/2024 Stage 3a chronic kidney disease (CKD) (ICD-10 - N18.31) Plan Of Treatment Pending Test Test Name Order Date H-TSH 07/29/2025 H-VITAMIN D 07/29/2025 H-T4 free 07/29/2025 Next Appt Details Provider Name:Umang Espinoza , 07/31/2025 04:15:00 PM, [address] [facility] [address] [facility], [address], [place], [id number], Insurance Providers Payer Name Payer Address Payer Phone Subscriber Number Group Number Insured Name Patient Relationship to Insured Coverage Start Date Coverage End Date [facility] [address] [address] [place] [address] [id number] Kathy Krishnan Self - patient is the insured Medical (General) History Medical History History ICD Code Hypothyroidism Hyperlipidemia Vitamin D Deficiency L-spine MRI February 2016, normal, MRI in 20 20 abnormal migraine headache Chronic kidney disease Lumbar Disc Disease osteoarthritis Surgical History Surgery Date(Month/Year) Cholecystectomy 1993 Total Hysterectomy 1998 Appendectomy 1998 Wrist LT Shoulder x 2 RT Knee 04/2013 LT Knee Arthroscopy, Dr. Ramirez 2017 Hospitalization History Reason Date(Month/Year) LT Thumb Cut- [facility] 11/2018 LT Knee and Back, Fall- [facility] 09/2017 Headache, Back Pain- [facility] 06/11/2017 Back and Chest Pain- [facility] 02/2016 Migraine- [facility] 11/2014 UTI- [facility] 01/21/2014 RT Knee, Fall- [facility] 01/22/2013 Rib Pain- [facility] 04/04/2012 Fell at Work- [facility] 02/21/2012 UTI- [facility] 01/2011 Lightheaded- [facility] 03/03/2010 UTI- [facility] 03/01/2010 UTI- [facility] 02/2009
[2025-07-31 09:20] LABS: Free T4 (Free Thyroxine) 1.11 ng/dl (0.78-2.19)
[2025-07-31 09:25] LABS: 25-OH Vitamin D, Total 53.2 ng/mL (30-100)
[2025-07-31 09:34] LABS: Thyroid Stimulating Hormone 10.20 uIU/mL (0.465-4.68)
== END 2025-07-31 23:59 | disposition home or self-care (01) ==
LOC: LAB 07:32
PROVIDERS: PCP Family Medicine; Visit Provider Family Medicine
DX: E55.9 Vitamin D deficiency, unspecified (principal); E03.9 Hypothyroidism, unspecified
CPT/HCPCS: 36415; 82306; 84439; 84443